=== PATIENT | female | born 1940 | race Caucasian/White ===

== ENCOUNTER 2017-12-21 18:42 | Inpatient (IN) | payer MEDICARE ==
[2017-12-21] MEDS: NS 0.9% 1000 ML* 2,000 ML IV ONE ×2 (18:47→18:48)
[2017-12-21 19:09] LABS: ABS Basophils 0.1 10^3/ul (0-0.2); ABS Eosinophils 0.1 10^3/ul (0-0.6); ABS Lymphocytes 0.7 10^3/ul (1.0-4.8); ABS Monocytes 0.6 10^3/ul (0-0.8); ABS Neutrophils 3.2 10^3/ul (1.5-7.7); ABS Nucleated RBC 0 10^3/ul; Eosinophil % 2.5 % (0-6); Hematocrit 35 % (35-47); Hemoglobin 11.8 g/dl (12.0-16.0); Lymphocyte % 15.1 % (25-47); Mean Corpuscular HGB Conc 34 g/dl (31-36); Mean Corpuscular Hemoglobin 28 pg (27-31); Mean Corpuscular Volume 81 fL (80-97); Mean Platelet Volume 8.4 um3 (7.4-10.4); Nucleated Red Blood Cells % 0; Platelet Count 185 10^3/ul (150-450); Red Blood Count 4.27 10^6/ul (4.00-5.40); Red Cell Distribution Width 14 % (10.5-15); White Blood Count 4.7 10^3/ul (3.5-10.8)
[2017-12-21 19:13] LABS: Urine Appearance Clear; Urine Blood Negative (Negative); Urine Color Yellow; Urine Ketones Trace (Negative); Urine Protein Negative (Negative); Urine Specific Gravity 1.014 (1.010-1.030); Urine Urobilinogen Negative (Negative)
[2017-12-21 19:17] LABS: INR 1.05 (0.77-1.02)
--- NOTE | 2017-12-21 19:38 | RAD ---
HISTORY: AMS,FALL COMPARISONS: None TECHNIQUE: Multiple contiguous axial CT scans were obtained of the head without intravenous contrast. FINDINGS: HEMORRHAGE/INFARCT: There is no hemorrhage or acute infarct. MASSES/SHIFT: There is no mass or shift. EXTRA-AXIAL SPACES: There are no extra-axial fluid collections. SULCI AND VENTRICLES: The sulci and ventricles are normal in size and position for the patient's stated age. CEREBRUM: There are no focal parenchymal abnormalities. BRAINSTEM: There are no focal parenchymal abnormalities. CEREBELLUM: There are no focal parenchymal abnormalities. VESSELS: The vessels are grossly normal. PARANASAL SINUSES: The paranasal sinuses are clear. ORBITS: The orbits are unremarkable. BONES AND SOFT TISSUE: No bone or soft tissue abnormalities are noted. OTHER: None IMPRESSION: NO ACUTE INTRACRANIAL PATHOLOGY.
--- NOTE | 2017-12-21 19:42 | RAD ---
HISTORY: Altered mental status, fall COMPARISONS: None TECHNIQUE: Multiple contiguous axial CT scans were obtained of the cervical spine without intravenous contrast, with coronal and sagittal multiplanar reformations. FINDINGS: BRAIN: The visualized brain is unremarkable CENTRAL CANAL: Evaluation of the central canal is limited on CT technique; however, there is no obvious canalicular mass or epidural hemorrhage. ALIGNMENT: There is a scoliotic curvature of the spine. VERTEBRAL BODIES: There is diffuse osteopenia. Is multilevel anterolateral marginal osteophyte formation. There is no displaced fracture or dislocation. JOINTS: There is osteoarthritis of the uncovertebral, facet, and atlantoaxial joints. MUSCULATURE: Unremarkable INTERVERTEBRAL DISCS: There is diffuse loss of intervertebral disc height. AXIAL IMAGES: C2-C3: There is no osseous neural foraminal narrowing or central canal stenosis. C3-C4: There is no osseous neural foraminal narrowing or central canal stenosis. C4-C5: There is no osseous neural foraminal narrowing or central canal stenosis. C5-C6: There is no osseous neural foraminal narrowing or central canal stenosis. C6-C7: There is no osseous neural foraminal narrowing or central canal stenosis. C7-T1: There is no osseous neural foraminal narrowing or central canal stenosis. SOFT TISSUES: The visualized soft tissues of the neck are unremarkable. The prevertebral fat stripe is preserved. OTHER: None. IMPRESSION: OSTEOPENIA. DEGENERATIVE DISC DISEASE AND OSTEOARTHRITIS. NO ACUTE OSSEOUS INJURY CERVICAL SPINE.
--- NOTE | 2017-12-21 19:47 | RAD ---
HISTORY: Altered mental status, fall COMPARISONS: None TECHNIQUE: Multiple contiguous axial CT scans were obtained of the chest, abdomen, and pelvis, without intravenous contrast enhancement. Coronal and sagittal multiplanar reformations are submitted for review.. FINDINGS: The study is limited by the lack of intravenous contrast. This limits evaluation of the solid organs and vasculature. This precludes evaluation of active arterial extravasation. CHEST NECK AND THYROID: The lower neck and thyroid are unremarkable. CHEST WALL: There is no lower cervical, axillary, or supraclavicular lymphadenopathy by size criteria. HEART AND PERICARDIUM: The heart is unremarkable. AORTA AND PULMONARY VASCULATURE: The aorta and pulmonary vasculature are normal. MEDIASTINUM: There is no mediastinal lymphadenopathy by size criteria. REYNA: There is no hilar lymphadenopathy by size criteria. AIRWAY AND ESOPHAGUS: The airway is unremarkable, without endobronchial filling defect. The esophagus is grossly normal. LUNG PARENCHYMA: There is dependent atelectasis of the lung bases. PLEURA: No pleural abnormalities are noted. BONES AND SOFT TISSUES: There is diffuse osteopenia. There is a scoliotic curvature of the spine.. ABDOMEN/PELVIS: LIVER: The liver is normal in shape, size, contour, and attenuation. BILE DUCTS: There is no intrahepatic or extrahepatic biliary dilatation. GALLBLADDER: The gallbladder is normal, without pericholecystic inflammatory change. PANCREAS: The pancreas is normal, without mass or ductal dilatation. SPLEEN: Normal in size and appearance. UPPER GI TRACT: Evaluation of the gastrointestinal tract is limited by incomplete gastric distention. The upper GI tract is unremarkable. SMALL BOWEL & MESENTERY: The small bowel is normal in contour, course, and caliber. There is no obstruction or dilatation. COLON: There are multiple diverticula of the distal colon. There is no pericolonic inflammatory change. ADRENALS: Normal bilaterally. KIDNEYS: The kidneys are normal in shape, size, contour, and axis. There is no hydronephrosis or nephrolithiasis. BLADDER: The bladder is collapsed rounded Chau catheter. PELVIC ORGANS: The uterus and adnexa are grossly normal for technique. AORTA: There is calcific atherosclerotic disease of the abdominal aorta and its branches, without aneurysmal dilatation IVC: Unremarkable LYMPH NODES: There is no lymphadenopathy by size criteria. ABDOMINAL WALL: There is no evidence for abdominal wall hernia. BONES AND SOFT TISSUES: There is a scoliotic curvature of the spine. There is diffuse osteopenia. Degenerative changes are noted in the spine. OTHER: None IMPRESSION: 1. NO ACUTE NONCONTRAST CT PATHOLOGY OF THE VISUALIZED CHEST, ABDOMEN, OR PELVIS. 2. ATHEROSCLEROSIS. 3. DIVERTICULOSIS.
--- NOTE | 2017-12-21 19:48 | RAD ---
HISTORY: AMS COMPARISONS: January 16, 2005 VIEWS: 1: frontal portable view of the chest at 7:35 PM. The patient is obliqued to the right. FINDINGS: LINES AND TUBES: None. CARDIOMEDIASTINAL SILHOUETTE: The cardiomediastinal silhouette is normal for portable technique. PLEURA: The costophrenic angles are sharp. No pleural abnormalities are noted. LUNG PARENCHYMA: There is hyperinflation. ABDOMEN: The upper abdomen is clear. There is no subphrenic gas. BONES AND SOFT TISSUES: There is diffuse osteopenia. IMPRESSION: HYPERINFLATION. NO ACTIVE CARDIOPULMONARY DISEASE.
[2017-12-21] MEDS ORDERED: Ondansetron 40 MG VIAL* 2 MG/ML 20 ML VIAL IV PRN (22:40)
[2017-12-21] MEDS ORDERED: Acetaminophen TAB* 325 MG PO PRN (22:40)
[2017-12-21] MEDS ORDERED: hydrALAZINE IV* 20 MG/ML VIAL IV SLOW PU PRN (22:47)
--- NOTE | 2017-12-21 23:10 | ED ---
Mejia Ribeiro Jade, scribed for Theron Marks MD on 12/21/17 at 1851 . Altered Mental Status - HPI Summary HPI Summary: Pt is a 77 y/o female BIBA s/p fall. EMS states she was found at the bottom of a 15 foot hill, and it seemed like she tumbled down the hill. It seemed like she was outside for a long time because she was hot and sweaty. Pt has altered mental status, and was only able to mumble. Upon EMS arrival her vitals were a HR of 150 bpm and a systolic pressure of 160. She was given 4 liters of oxygen via nasal cannula. Pt is maintaining her airway fine. Pt is a level 5 caveat, therefore unable to obtain proper ROS or PMHx. - History Of Current Complaint Chief Complaint: EDAltMentalStatus Stated Complaint: AMS Time Seen by Provider: 12/21/17 18:45 Hx Obtained From: EMS Hx From Patient Unobtainable Due To: Altered Mental Status Hx Last Menstrual Period: Years ago. Onset/Duration: Unknown, Still Present Character: Confusion Aggravating Factor(s): Unknown Alleviating Factor(s): Unknown - Allergies/Home Medications Allergies/Adverse Reactions: Allergies Allergy/AdvReac Type Severity Reaction Status Date / Time No Known Allergies Allergy Verified 09/08/15 12:07 Home Medications: Home Medications NK [No Home Medications Reported] 12/21/17 [History Confirmed 12/21/17] PMH/Surg Hx/FS Hx/Imm Hx Endocrine/Hematology History: Denies: Hx Diabetes, Hx Thyroid Disease Cardiovascular History: Denies: Hx Congestive Heart Failure, Hx Deep Vein Thrombosis, Hx Hypertension , Hx Myocardial Infarction, Hx Pacemaker/ICD Respiratory History: Denies: Hx Asthma, Hx Chronic Obstructive Pulmonary Disease (COPD), Hx Lung Cancer GI History: Denies: Hx Gall Bladder Disease, Hx Gastrointestinal Bleed, Hx Ulcer, Hx Urosepsis History: Denies: Hx Kidney Stones, Hx Renal Disease Neurological History: Denies: Hx Dementia, Hx Migraine, Hx Seizures, Hx Transient Ischemic Attacks (TIA) Psychiatric History: Denies: Hx Anxiety, Hx Depression, Hx Schizophrenia, Hx Bipolar Disorder - Surgical History Surgery Procedure, Year, and Place: breast bx Infectious Disease History: Denies: Hx Hepatitis, Hx Human Immunodeficiency Virus (HIV), Traveled Outside the [place] in Last 30 Days - Family History Known Family History: Positive: Cardiac Disease, Hypertension, Diabetes, Other - Cancer - Social History Alcohol Use: None Substance Use Type: Reports: None Smoking Status (MU): Former Smoker Review of Systems Positive: Skin Diaphoresis Positive: Other - Hot skin Neurological: Other - Altered mental status All Other Systems Reviewed And Are Negative: Yes Physical Exam - Summary Physical Exam Summary: General: well-appearing, no pain distress Skin: Red, hot, dry. Head: Oral mucosa dry. Eyes: EOMI, LUCILLE to 2 mm. ENT: normal Neck: supple, nontender Respiratory: CTA, breath sounds present Cardiovascular: Tachycardic. Abdomen: soft, nontender Bowel: present Musculoskeletal: Moving all four extremities. Neurological: sensory/motor intact, says some words. Reacts to pain. Opens eyes to voice. Psychological: affect/mood appropriate GCS: 10 Triage Information Reviewed: Yes Vital Signs On Initial Exam: Initial Vitals Temp Pulse Resp BP Pulse Ox 102.0 F 140 37 143/76 100 12/21/17 18:47 12/21/17 18:47 12/21/17 18:47 12/21/17 18:47 12/21/17 18:47 Vital Signs Reviewed: Yes Diagnostics - Vital Signs Vital Signs Temp Pulse Resp BP Pulse Ox 12/21/17 22:54 96.8 F 71 16 160/74 100 12/21/17 22:29 96.4 F 89 30 165/106 100 12/21/17 22:00 96.6 F 68 14 98 12/21/17 21:59 96.6 F 71 18 133/65 98 12/21/17 21:29 96.3 F 82 15 161/81 100 12/21/17 21:00 96.6 F 86 19 97 12/21/17 20:59 96.6 F 87 14 128/67 97 12/21/17 20:29 97.0 F 90 15 145/67 98 12/21/17 20:01 97.2 F 99 15 185/86 100 12/21/17 20:00 97.2 F 99 12 99 12/21/17 19:30 99.0 F 109 22 144/71 98 12/21/17 19:07 102.0 F 127 20 142/65 99 12/21/17 19:00 102.7 F 129 25 99 12/21/17 18:58 102.7 F 129 28 96 12/21/17 18:57 102.6 F 131 32 143/65 97 12/21/17 18:47 102.0 F 140 37 143/76 100 - Laboratory Lab Results: Lab Results 12/21/17 12/21/17 12/21/17 Range/Units 18:55 18:55 18:55 WBC 4.7 (3.5-10.8) 10^3/ul RBC 4.27 (4.00-5.40) 10^6/ul Hgb 11.8 L (12.0-16.0) g/dl Hct 35 (35-47) % MCV 81 (80-97) fL MCH 28 (27-31) pg MCHC 34 (31-36) g/dl RDW 14 (10.5-15) % Plt Count 185 (150-450) 10^3/ul MPV 8.4 (7.4-10.4) um3 Neut % (Auto) 68.9 (38-83) % Lymph % (Auto) 15.1 L (25-47) % Bowie % (Auto) 12.2 H (0-7) % Eos % (Auto) 2.5 (0-6) % Baso % (Auto) 1.3 (0-2) % Absolute Neuts (auto) 3.2 (1.5-7.7) 10^3/ul Absolute Lymphs (auto) 0.7 L (1.0-4.8) 10^3/ul Absolute Monos (auto) 0.6 (0-0.8) 10^3/ul Absolute Eos (auto) 0.1 (0-0.6) 10^3/ul Absolute Basos (auto) 0.1 (0-0.2) 10^3/ul Absolute Nucleated RBC 0 10^3/ul Nucleated RBC % 0 INR (Anticoag Therapy) 1.05 H (0.77-1.02) APTT 27.9 (26.0-36.3) seconds VBG pH (7.33-7.43) VBG pCO2 (41-51) mmHg VBG pO2 (35-45) mmHg VBG HCO3 (24-28) mmol/L VBG O2 Saturation (70-80) % VBG Base Excess (0-4) POC Glucose (mg/dL) (70-100) mg/dL Lactic Acid (0.5-2.0) mmol/L Magnesium (1.9-2.7) mg/dL Ammonia (16-53) mcmol/L Total Creatine Kinase (10-223) U/L CK-MB (CK-2) (0.6-6.3) ng/mL Troponin I (<0.04) ng/mL C-Reactive Protein (< 5.00) mg/L B-Natriuretic Peptide ( - 100) pg/mL Lipase (11.0-82.0) U/L TSH (0.34-5.60) mcIU/mL Urine Color Yellow Urine Appearance Clear Urine pH 5.0 (5-9) Ur Specific Newell 1.014 (1.010-1.030) Urine Protein Negative (Negative) Urine Ketones Trace A (Negative) Urine Blood Negative (Negative) Urine Nitrate Negative (Negative) Urine Bilirubin Negative (Negative) Urine Urobilinogen Negative (Negative) Ur Leukocyte Esterase Negative (Negative) Urine Glucose Negative (Negative) Acetaminophen mcg/mL Serum Alcohol (<10) mg/dL 12/21/17 12/21/17 12/21/17 Range/Units 18:55 18:55 18:55 WBC (3.5-10.8) 10^3/ul RBC (4.00-5.40) 10^6/ul Hgb (12.0-16.0) g/dl Hct (35-47) % MCV (80-97) fL MCH (27-31) pg MCHC (31-36) g/dl RDW (10.5-15) % Plt Count (150-450) 10^3/ul MPV (7.4-10.4) um3 Neut % (Auto) (38-83) % Lymph % (Auto) (25-47) % Bowie % (Auto) (0-7) % Eos % (Auto) (0-6) % Baso % (Auto) (0-2) % Absolute Neuts (auto) (1.5-7.7) 10^3/ul Absolute Lymphs (auto) (1.0-4.8) 10^3/ul Absolute Monos (auto) (0-0.8) 10^3/ul Absolute Eos (auto) (0-0.6) 10^3/ul Absolute Basos (auto) (0-0.2) 10^3/ul Absolute Nucleated RBC 10^3/ul Nucleated RBC % INR (Anticoag Therapy) (0.77-1.02) APTT (26.0-36.3) seconds VBG pH (7.33-7.43) VBG pCO2 (41-51) mmHg VBG pO2 (35-45) mmHg VBG HCO3 (24-28) mmol/L VBG O2 Saturation (70-80) % VBG Base Excess (0-4) POC Glucose (mg/dL) (70-100) mg/dL Lactic Acid 0.8 (0.5-2.0) mmol/L Magnesium 1.9 (1.9-2.7) mg/dL Ammonia 40 (16-53) mcmol/L Total Creatine Kinase 33 (10-223) U/L CK-MB (CK-2) 2.2 (0.6-6.3) ng/mL Troponin I 0.01 (<0.04) ng/mL C-Reactive Protein 3.45 (< 5.00) mg/L B-Natriuretic Peptide 69 ( - 100) pg/mL Lipase 35 (11.0-82.0) U/L TSH 1.60 (0.34-5.60) mcIU/mL Urine Color Urine Appearance Urine pH (5-9) Ur Specific Newell (1.010-1.030) Urine Protein (Negative) Urine Ketones (Negative) Urine Blood (Negative) Urine Nitrate (Negative) Urine Bilirubin (Negative) Urine Urobilinogen (Negative) Ur Leukocyte Esterase (Negative) Urine Glucose (Negative) Acetaminophen < 15 mcg/mL Serum Alcohol < 10 (<10) mg/dL 18 12/21/17 Range/Units 19:10 19:45 WBC (3.5-10.8) 10^3/ul RBC (4.00-5.40) 10^6/ul Hgb (12.0-16.0) g/dl Hct (35-47) % MCV (80-97) fL MCH (27-31) pg MCHC (31-36) g/dl RDW (10.5-15) % Plt Count (150-450) 10^3/ul MPV (7.4-10.4) um3 Neut % (Auto) (38-83) % Lymph % (Auto) (25-47) % Bowie % (Auto) (0-7) % Eos % (Auto) (0-6) % Baso % (Auto) (0-2) % Absolute Neuts (auto) (1.5-7.7) 10^3/ul Absolute Lymphs (auto) (1.0-4.8) 10^3/ul Absolute Monos (auto) (0-0.8) 10^3/ul Absolute Eos (auto) (0-0.6) 10^3/ul Absolute Basos (auto) (0-0.2) 10^3/ul Absolute Nucleated RBC 10^3/ul Nucleated RBC % INR (Anticoag Therapy) (0.77-1.02) APTT (26.0-36.3) seconds VBG pH 7.35 (7.33-7.43) VBG pCO2 37 L (41-51) mmHg VBG pO2 57 H (35-45) mmHg VBG HCO3 21.1 L (24-28) mmol/L VBG O2 Saturation 92.5 H (70-80) % VBG Base Excess -4.7 L (0-4) POC Glucose (mg/dL) 141 H (70-100) mg/dL Lactic Acid (0.5-2.0) mmol/L Magnesium (1.9-2.7) mg/dL Ammonia (16-53) mcmol/L Total Creatine Kinase (10-223) U/L CK-MB (CK-2) (0.6-6.3) ng/mL Troponin I (<0.04) ng/mL C-Reactive Protein (< 5.00) mg/L B-Natriuretic Peptide ( - 100) pg/mL Lipase (11.0-82.0) U/L TSH (0.34-5.60) mcIU/mL Urine Color Urine Appearance Urine pH (5-9) Ur Specific Newell (1.010-1.030) Urine Protein (Negative) Urine Ketones (Negative) Urine Blood (Negative) Urine Nitrate (Negative) Urine Bilirubin (Negative) Urine Urobilinogen (Negative) Ur Leukocyte Esterase (Negative) Urine Glucose (Negative) Acetaminophen mcg/mL Serum Alcohol (<10) mg/dL Result Diagrams: 12/21/17 18:55 Lab Statement: Any lab studies that have been ordered have been reviewed, and results considered in the medical decision making process. - Radiology CXR Radiology Interpretation Completed By: Radiologist - 18:49: HYPERINFLATION. NO ACTIVE CARDIOPULMONARY DISEASE. ED physician reviewed radiology report. - CT Brain CT CT Interpretation: No Acute Changes - 18:52: NO ACUTE INTRACRANIAL PATHOLOGY. ED physician reviewed radiology report. CT Interpretation Completed By: Radiologist Cervical Spine CT CT Interpretation Completed By: Radiologist - 18:52: OSTEOPENIA. DEGENERATIVE DISC DISEASE AND OSTEOARTHRITIS. NO ACUTE OSSEOUS INJURY CERVICAL SPINE. ED physician reviewed radiology report. Chest/Abd/Pel CT CT Interpretation Completed By: Radiologist - 18:52: 1. NO ACUTE NONCONTRAST CT PATHOLOGY OF THE VISUALIZED CHEST, ABDOMEN, OR PELVIS. 2. ATHEROSCLEROSIS. 3. DIVERTICULOSIS. ED physician reviewed radiology report. - EKG 18:52 Cardiac Rate: Tachycardia - 131 bpm EKG Interpretation: ST depression probably rate related, no ectopy Altered Mental Statu Course/Dx - Course Course Of Treatment: ADMIT HOSPITALIST. - Diagnoses Provider Diagnoses: Heat exhaustion, Dehydration, Altered mental state - Critical Care Time Critical Care Time: 30-74 min - CCT is exclusive of separate billable procedures Discharge - Sign-Out/Discharge Documenting (check all that apply): Discharge/Admit/Transfer - Admit Signing out patient TO: Tito Traylor - Discharge Plan Condition: Stable Disposition: ADMITTED TO [facility] Referrals: No Primary Care Phys,NOPCP [Primary Care Provider] - - Billing Disposition and Condition Condition: STABLE Disposition: Admitted to [facility] The documentation as recorded by the Mejia calderon Jade accurately reflects the service I personally performed and the decisions made by me, Theron Marks MD.
[2017-12-22] MEDS: NS 0.9% 1000 ML* 1,000 ML IV SCH ×2 (00:59→14:06)
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
[2017-12-22 04:45] LABS: ABS Basophils 0 10^3/ul (0-0.2); ABS Eosinophils 0 10^3/ul (0-0.6); ABS Lymphocytes 0.9 10^3/ul (1.0-4.8); ABS Monocytes 0.9 10^3/ul (0-0.8); ABS Neutrophils 4.9 10^3/ul (1.5-7.7); ABS Nucleated RBC 0 10^3/ul; Eosinophil % 0.6 % (0-6); Hematocrit 36 % (35-47); Lymphocyte % 13.8 % (25-47); Mean Corpuscular HGB Conc 33 g/dl (31-36); Mean Corpuscular Hemoglobin 27 pg (27-31); Mean Corpuscular Volume 82 fL (80-97); Mean Platelet Volume 8.7 um3 (7.4-10.4); Nucleated Red Blood Cells % 0; Platelet Count 172 10^3/ul (150-450); Red Blood Count 4.42 10^6/ul (4.00-5.40); Red Cell Distribution Width 15 % (10.5-15); White Blood Count 6.8 10^3/ul (3.5-10.8)
[2017-12-22] MEDS: Heparin VIAL(*) 5000 UNITS/ML VIAL (FIVE THOUSAND) SUBCUT SCH ×2 (06:24→14:02)
[2017-12-22] MEDS ORDERED: Potassium Chlor TAB* 20 MEQ TAB.ER PO STA (08:38)
[2017-12-22] MEDS: Cyanocobalamin TAB* 500 MCG PO SCH (08:45)
[2017-12-22] MEDS ORDERED: Calcium CHLORIDE 10% SYRINGE* 0.68 GM in D5W 100 ML BAG* 100 ML IV ONE (10:48)
--- NOTE | 2017-12-22 13:33 | ECHO ---
Patient: RUBEN STEELE [facility] Rec#: [id number] : 1940 Date: 12/22/2017 Age: 77y Height: 157.5 cm / 62.0 in Weight: 47.6 kg / 104.9 lbs Sex: F BSA: 1.5 Room#: 435 Admit Date#: 12/21/2017 Type: Inpatient Referring: Theron Nixon Reading: Alejandro Harden MD Assistant Finance Director: Karen Gutiérrez RN RDCS Transthoracic Echocardiogram Indication: Syncope BP: 138/59 HR: 79 Rhythm: NSR with PACs Findings History: Arthritis, dementia, heat exhaustion Technical Comments: The study quality is fair. Completed at 1225. Left Ventricle: The left ventricular chamber size is normal. There is increased basal septal hypertrophy noted without evidence of an increased gradient across the left ventricular outflow tract. Global left ventricular wall motion and contractility are within normal limits. There is normal left ventricular systolic function. The estimated ejection fraction is 60-65%. There is an E to A reversal in the mitral valve flow pattern suggestive of diastolic dysfunction. Left Atrium: The left atrial chamber size is normal. Right Ventricle: The right ventricular chamber size and systolic function are within normal limits. Right Atrium: The right atrial cavity size is normal. Aortic Valve: The aortic valve is trileaflet. The aortic valve leaflets are mildly thickened. There is aortic annular calcification. There is mild to moderate aortic regurgitation. There is no evidence of aortic stenosis. Mitral Valve: There is mitral annular calcification. The mitral valve leaflets are mildly thickened. There is mild to moderate mitral regurgitation. There is no evidence of mitral stenosis. Tricuspid Valve: The tricuspid valve leaflets are normal. There is mild tricuspid regurgitation. No pulmonary hypertension is noted. There is no tricuspid stenosis. Pulmonic Valve: The pulmonic valve appears normal. There is trace to mild pulmonic regurgitation. There is no pulmonic stenosis. Pericardium: There is no significant pericardial effusion. A pericardial fat pad is visualized. Aorta: There is no dilatation of the ascending aorta. There is no dilatation of the aortic arch. There is no dilation of the aortic root. Pulmonary Artery: The main pulmonary artery is not well visualized. Venous: The inferior vena cava appears normal in size. There is a greater than 50% respiratory change in the inferior vena cava dimension. Conclusions There is increased basal septal hypertrophy noted without evidence of an increased gradient across the left ventricular outflow tract. Global left ventricular wall motion and contractility are within normal limits. There is normal left ventricular systolic function. The estimated ejection fraction is 60-65%. The right ventricular chamber size and systolic function are within normal limits. There is no evidence of aortic stenosis. There is mild to moderate mitral regurgitation. There is mild tricuspid regurgitation. No pulmonary hypertension is noted. There is no significant pericardial effusion. Measurements Name Value Normal Range RVDdMajor (2D) 2.8 cm (2.2 - 4.4) RAd ISD 4CH 4 cm (3.4 - 4.9) RA (A4C)W 3.6 cm (2.9 - 4.6) IVSd (2D) 0.8 cm (0.6 - 1) LVPWd (2D) 0.8 cm (0.6 - 1) LVIDd (2D) 3.8 cm (3.6 - 5.4) LVIDs (2D) 2.4 cm - LV FS (2D) 36 % (25 - 45) Aortic Annulus 1.9 cm (1.4 - 2.6) Ao root diameter (2D) 2.6 cm (2.1 - 3.5) Ascending Ao 2.4 cm (2.1 - 3.4) Aortic arch 2.2 cm (1.8 - 3.4) LA dimension (AP) 2D 3 cm (2.3 - 3.8) LAd ISD 4CH 3.9 cm (2.9 - 5.3) LA ISD 4CH W 4.1 cm (2.5 - 4.5) Name Value Normal Range LA ESV SP 4CH (A/L) 41 ml - LA ESV SP 2CH (A/L) 39 ml - LA ESV BP (A/L) 42 ml - LA ESV BP (A/L) index 29.1 ml/m2 - LA ESV SP 4CH (MOD) 36 ml - LA ESV SP 2CH (MOD) 38 ml - Name Value Normal Range MV E-wave Vmax 0.8 m/sec - MV deceleration time 193 msec - MV A-wave Vmax 0.97 m/sec - MV E:A ratio 0.82 ratio - LV septal e' Vmax 0.07 m/sec - LV lateral e' Vmax 0.08 m/sec - LV E:e' septal ratio 11.4 ratio - LV E:e' lateral ratio 10 ratio - Name Value Normal Range AV Vmax 1.4 m/sec - AV VTI 32.8 cm - AV peak gradient 8 mmHg - AV mean gradient 4 mmHg - LVOT Vmax 0.94 m/sec - LVOT VTI 21.4 cm - LVOT peak gradient 3.6 mmHg - LVOT mean gradient 1.9 mmHg - AR PHT 482 msec - Name Value Normal Range TR Vmax 2.1 m/sec - TR peak gradient 18 mmHg - RAP 3 mmHg - RVSP 21 mmHg - IVC diameter 1.8 cm - Name Value Normal Range PV Vmax 0.7 m/sec -
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
--- NOTE | 2017-12-22 21:17 | PN ---
Subjective Date of Service: 12/22/17 Interval History: Pt seen and examined. Meds and labs reviewed. ROS: Denied MOSER/dizziness, F/C, N/V, CP, SOB, increased cough, sputum production , abd pain, diarrhea, constipation, dysuria, myalgias, arthralgias, throat pain , and new skin lesions. The rest of the 14 point ROS are unremarkable. PHYSICAL EXAM: GEN APPEARANCE: Awake, not in acute distress HEENT: NC/AT, PERRLA, moist oral mucosa, (-) throat erythema NECK: Soft, supple, (-) cervical LAD, (-)JVD HEART: S1S2 WNL, RRR, No MRG CHEST: CTA, BL, GAE, No W/R/R ABD: Soft, ND/NT, NABS 4x Q EXT: No C/C/E SKIN: Warm to touch PSYCH: No active psychosis, hallucinations, depression, SI/HI Objective Active Medications: Acetaminophen (Tylenol Tab*) 650 mg PO Q6H PRN PRN Reason: FEVER/PAIN Cyanocobalamin (Vitamin B12 Tab*) 1,000 mcg PO DAILY [facility] Last Admin: 12/22/17 08:45 Dose: 1,000 mcg Heparin Sodium (Porcine) (Heparin Vial(*)) 5,000 units SUBCUT Q8HR [facility] Last Admin: 12/22/17 14:02 Dose: 5,000 units Hydralazine HCl (Apresoline Iv*) 5 mg IV SLOW PU Q6H PRN PRN Reason: SYSTOLIC BP GREATER THAN: Sodium Chloride (Ns 0.9% 1000 Ml*) 1,000 mls @ 100 mls/hr IV PER RATE [facility] Stop: 12/23/17 08:44 Last Admin: 12/22/17 14:06 Dose: 100 mls/hr Ondansetron HCl (Zofran 40 Mg Vial*) 4 mg IV Q6H PRN PRN Reason: NAUSEA Quetiapine Fumarate (Seroquel Tab*) 25 mg PO BEDTIME [facility] Vital Signs - 8 hr 12/22/17 15:18 Temperature 99.0 F Pulse Rate 90 Respiratory 14 Rate Blood Pressure 130/57 (mmHg) O2 Sat by Pulse 99 Oximetry Oxygen Devices in Use Now: None Result Diagrams: 12/22/17 04:19 12/22/17 04:19 Additional Lab and Data: Lab Results 12/21/17 12/21/17 12/21/17 Range/Units 18:55 18:55 18:55 WBC 4.7 (3.5-10.8) 10^3/ul RBC 4.27 (4.00-5.40) 10^6/ul Hgb 11.8 L (12.0-16.0) g/dl Hct 35 (35-47) % MCV 81 (80-97) fL MCH 28 (27-31) pg MCHC 34 (31-36) g/dl RDW 14 (10.5-15) % Plt Count 185 (150-450) 10^3/ul MPV 8.4 (7.4-10.4) um3 Neut % (Auto) 68.9 (38-83) % Lymph % (Auto) 15.1 L (25-47) % Ness % (Auto) 12.2 H (0-7) % Eos % (Auto) 2.5 (0-6) % Baso % (Auto) 1.3 (0-2) % Absolute Neuts (auto) 3.2 (1.5-7.7) 10^3/ul Absolute Lymphs (auto) 0.7 L (1.0-4.8) 10^3/ul Absolute Monos (auto) 0.6 (0-0.8) 10^3/ul Absolute Eos (auto) 0.1 (0-0.6) 10^3/ul Absolute Basos (auto) 0.1 (0-0.2) 10^3/ul Absolute Nucleated RBC 0 10^3/ul Nucleated RBC % 0 INR (Anticoag Therapy) 1.05 H (0.77-1.02) APTT 27.9 (26.0-36.3) seconds VBG pH (7.33-7.43) VBG pCO2 (41-51) mmHg VBG pO2 (35-45) mmHg VBG HCO3 (24-28) mmol/L VBG O2 Saturation (70-80) % VBG Base Excess (0-4) POC Glucose (mg/dL) (70-100) mg/dL Lactic Acid (0.5-2.0) mmol/L Magnesium (1.9-2.7) mg/dL Ammonia (16-53) mcmol/L Total Creatine Kinase (10-223) U/L CK-MB (CK-2) (0.6-6.3) ng/mL Troponin I (<0.04) ng/mL C-Reactive Protein (< 5.00) mg/L B-Natriuretic Peptide ( - 100) pg/mL Lipase (11.0-82.0) U/L TSH (0.34-5.60) mcIU/mL Urine Color Yellow Urine Appearance Clear Urine pH 5.0 (5-9) Ur Specific [place] 1.014 (1.010-1.030) Urine Protein Negative (Negative) Urine Ketones Trace A (Negative) Urine Blood Negative (Negative) Urine Nitrate Negative (Negative) Urine Bilirubin Negative (Negative) Urine Urobilinogen Negative (Negative) Ur Leukocyte Esterase Negative (Negative) Urine Glucose Negative (Negative) Acetaminophen mcg/mL Serum Alcohol (<10) mg/dL 12/21/17 12/21/17 12/21/17 Range/Units 18:55 18:55 18:55 WBC (3.5-10.8) 10^3/ul RBC (4.00-5.40) 10^6/ul Hgb (12.0-16.0) g/dl Hct (35-47) % MCV (80-97) fL MCH (27-31) pg MCHC (31-36) g/dl RDW (10.5-15) % Plt Count (150-450) 10^3/ul MPV (7.4-10.4) um3 Neut % (Auto) (38-83) % Lymph % (Auto) (25-47) % Ness % (Auto) (0-7) % Eos % (Auto) (0-6) % Baso % (Auto) (0-2) % Absolute Neuts (auto) (1.5-7.7) 10^3/ul Absolute Lymphs (auto) (1.0-4.8) 10^3/ul Absolute Monos (auto) (0-0.8) 10^3/ul Absolute Eos (auto) (0-0.6) 10^3/ul Absolute Basos (auto) (0-0.2) 10^3/ul Absolute Nucleated RBC 10^3/ul Nucleated RBC % INR (Anticoag Therapy) (0.77-1.02) APTT (26.0-36.3) seconds VBG pH (7.33-7.43) VBG pCO2 (41-51) mmHg VBG pO2 (35-45) mmHg VBG HCO3 (24-28) mmol/L VBG O2 Saturation (70-80) % VBG Base Excess (0-4) POC Glucose (mg/dL) (70-100) mg/dL Lactic Acid 0.8 (0.5-2.0) mmol/L Magnesium 1.9 (1.9-2.7) mg/dL Ammonia 40 (16-53) mcmol/L Total Creatine Kinase 33 (10-223) U/L CK-MB (CK-2) 2.2 (0.6-6.3) ng/mL Troponin I 0.01 (<0.04) ng/mL C-Reactive Protein 3.45 (< 5.00) mg/L B-Natriuretic Peptide 69 ( - 100) pg/mL Lipase 35 (11.0-82.0) U/L TSH 1.60 (0.34-5.60) mcIU/mL Urine Color Urine Appearance Urine pH (5-9) Ur Specific [place] (1.010-1.030) Urine Protein (Negative) Urine Ketones (Negative) Urine Blood (Negative) Urine Nitrate (Negative) Urine Bilirubin (Negative) Urine Urobilinogen (Negative) Ur Leukocyte Esterase (Negative) Urine Glucose (Negative) Acetaminophen < 15 mcg/mL Serum Alcohol < 10 (<10) mg/dL 18 12/21/17 Range/Units 19:10 19:45 WBC (3.5-10.8) 10^3/ul RBC (4.00-5.40) 10^6/ul Hgb (12.0-16.0) g/dl Hct (35-47) % MCV (80-97) fL MCH (27-31) pg MCHC (31-36) g/dl RDW (10.5-15) % Plt Count (150-450) 10^3/ul MPV (7.4-10.4) um3 Neut % (Auto) (38-83) % Lymph % (Auto) (25-47) % Ness % (Auto) (0-7) % Eos % (Auto) (0-6) % Baso % (Auto) (0-2) % Absolute Neuts (auto) (1.5-7.7) 10^3/ul Absolute Lymphs (auto) (1.0-4.8) 10^3/ul Absolute Monos (auto) (0-0.8) 10^3/ul Absolute Eos (auto) (0-0.6) 10^3/ul Absolute Basos (auto) (0-0.2) 10^3/ul Absolute Nucleated RBC 10^3/ul Nucleated RBC % INR (Anticoag Therapy) (0.77-1.02) APTT (26.0-36.3) seconds VBG pH 7.35 (7.33-7.43) VBG pCO2 37 L (41-51) mmHg VBG pO2 57 H (35-45) mmHg VBG HCO3 21.1 L (24-28) mmol/L VBG O2 Saturation 92.5 H (70-80) % VBG Base Excess -4.7 L (0-4) POC Glucose (mg/dL) 141 H (70-100) mg/dL Lactic Acid (0.5-2.0) mmol/L Magnesium (1.9-2.7) mg/dL Ammonia (16-53) mcmol/L Total Creatine Kinase (10-223) U/L CK-MB (CK-2) (0.6-6.3) ng/mL Troponin I (<0.04) ng/mL C-Reactive Protein (< 5.00) mg/L B-Natriuretic Peptide ( - 100) pg/mL Lipase (11.0-82.0) U/L TSH (0.34-5.60) mcIU/mL Urine Color Urine Appearance Urine pH (5-9) Ur Specific [place] (1.010-1.030) Urine Protein (Negative) Urine Ketones (Negative) Urine Blood (Negative) Urine Nitrate (Negative) Urine Bilirubin (Negative) Urine Urobilinogen (Negative) Ur Leukocyte Esterase (Negative) Urine Glucose (Negative) Acetaminophen mcg/mL Serum Alcohol (<10) mg/dL Assess/Plan/Problems-Billing Assessment: - Patient Problems (1) Syncope and collapse Current Visit: Yes Status: Acute Code(s): R55 - SYNCOPE AND COLLAPSE SNOMED Code(s): 348408122 Comment: -Possibly due to heat exhaustion given her dementia with behavioral issues causing delusions -EF of 60-65% on echo with no wall motion abnormalities -Will order carotid dopplers to evaluate for comorbid conditions -Pt not orthostatic -TSH normal (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 Berger early in the morning that her delusions may be part of her dementia -Low dose Quetiapine ordered -Consider Gabapentin or Depakote for synergy given black box warning to antipsychotics -Will need to be placed in dementia unit on D/C per Dr. Berger (4) Osteoarthritis Current Visit: Yes Status: Acute Code(s): M19.90 - UNSPECIFIED OSTEOARTHRITIS, UNSPECIFIED SITE SNOMED Code(s): 887428342 Comment: -Continue PRN Tylenol (5) DVT prophylaxis Current Visit: Yes Status: Acute Code(s): SWK2498 - SNOMED Code(s): 278191898 Comment: -Will decrease Heparin to q12H given advanced age Status and Disposition: -For dementia unit placement on D/C
[2017-12-22] MEDS: QUEtiapine TAB* 25 MG PO SCH (21:55)
[2017-12-23 05:10] LABS: Hematocrit 36 % (35-47); Hemoglobin 12.3 g/dl (12.0-16.0); Mean Corpuscular HGB Conc 35 g/dl (31-36); Mean Corpuscular Hemoglobin 28 pg (27-31); Mean Corpuscular Volume 82 fL (80-97); Mean Platelet Volume 9.2 um3 (7.4-10.4); Platelet Count 151 10^3/ul (150-450); Red Blood Count 4.35 10^6/ul (4.00-5.40); Red Cell Distribution Width 15 % (10.5-15); White Blood Count 4.2 10^3/ul (3.5-10.8)
[2017-12-23 05:25] LABS: EGFR Non-African American 83.5 (>60)
[2017-12-23] MEDS: Cyanocobalamin TAB* 500 MCG PO SCH (09:02)
[2017-12-23] MEDS: Heparin VIAL(*) 5000 UNITS/ML VIAL (FIVE THOUSAND) SUBCUT SCH ×2 (09:04→20:57)
--- NOTE | 2017-12-23 11:13 | CONSULT ---
Identification - Patient Identification Reason for Psychiatric Consultation: Incapacitating Symptoms -: Patient is a 77 year old, F admitted on 12/22/17. - MHU Identification Employment Status: Disabled Hx Psychiatric Hospitalization: No History - Objective HPI: Jennifer is seen for follow up by the psychiatric consult service. She took the quetiapine last night and tolerated well. "I had a wonderful night of sleep." She reports that the music in her head, that she persecutorily attributes to a male neighbor whom she believes has been harassing her, has dissipated here in the hospital. She continues to be confused with poor orientation to time and place. Lab Results: Laboratory Tests 12/23/17 12/23/17 04:22 04:22 WBC 4.2 RBC 4.35 Hgb 12.3 Hct 36 MCV 82 MCH 28 MCHC 35 RDW 15 Plt Count 151 MPV 9.2 Sodium 140 Potassium 3.7 Chloride 111 Carbon Dioxide 23 Anion Gap 6 BUN 10 Creatinine 0.68 Est GFR ( Amer) 107.3 Est GFR (Non-Af Amer) 83.5 BUN/Creatinine Ratio 14.7 Glucose 98 Calcium 8.3 L Phosphorus 2.4 L Magnesium 1.8 L Total Bilirubin 0.30 AST 11 L ALT 7 Alkaline Phosphatase 59 Total Protein 5.5 L Albumin 3.0 L Globulin 2.5 Albumin/Globulin Ratio 1.2 Exam Appearance: Thin Framed Hygiene: Normal Grooming: Fairly Well Kept Psychomotor Activities: Abnormal-Decreased Exhibits Abnormal Movement: No Attitude and Relatedness: Cooperative Eye Contact: Good - Speech Quality: Unpressured Latencies: Normal Quantity: Appropriate Patient's Decription of Mood: "Good" Observed Affect: Good Affect Consistent with: Euthymia Patient's Thought Process: Circumstantial Thought Content: Yes Paranoid Ideation, No Passive Wish, No Suicidal Planning, No Homicidal Ideation Experiencing Hallucinations: Yes Type of Hallucinations: Visual: No, Auditory: Yes, Command: No Level of Consciousness: Alert Orientation: Yes Intact, Yes Orientated to Person, No Orientated to Time, No Orientated to Place Impulse Control: Poor Insight and Judgement: Impaired Impression - Impression Clinical Impression: 77 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 Health proxy reports that the patient's memory and cognitive functioning have been steadily declining for the past 5 years and she does not appear to be able to live independently. Inpatient DSM-V Dx: R41.9 Merits Inpatient Hospitalization: No Problem List - U Problems Type of Problem: Attitude and Relatedness Status of Problem: Active Plan - Treatment Plan Treatment Plan: We have started a trial of quetiapine 25mg PO qhs, which she appears to be tolerating well. The patient does not have capacity to make informed medical decisions related to placement. She would benefit from placement in a rehab or SNF setting. Psychiatry is signing off but can be reached for further consultation in the event that the patient's presentation changes. Continued Medication Management: Start Medication Medications: Current Medications Acetaminophen (Tylenol Tab*) 650 mg PO Q6H PRN PRN Reason: FEVER/PAIN Cyanocobalamin (Vitamin B12 Tab*) 1,000 mcg PO DAILY [facility] Last Admin: 12/23/17 09:02 Dose: 1,000 mcg Heparin Sodium (Porcine) (Heparin Vial(*)) 5,000 units SUBCUT Q12HR [facility] Last Admin: 12/23/17 09:04 Dose: 5,000 units Hydralazine HCl (Apresoline Iv*) 5 mg IV SLOW PU Q6H PRN PRN Reason: SYSTOLIC BP GREATER THAN: Ondansetron HCl (Zofran 40 Mg Vial*) 4 mg IV Q6H PRN PRN Reason: NAUSEA Quetiapine Fumarate (Seroquel Tab*) 25 mg PO BEDTIME [facility] Last Admin: 12/22/17 21:55 Dose: 25 mg - Discharge Plan Discharge Plan: Outpatient Follow Up
--- NOTE | 2017-12-23 12:14 | RAD ---
INDICATION: Carotid stenosis. Syncope. COMPARISON: None TECHNIQUE: Transverse and longitudinal scans of the carotid and vertebral arteries were performed with madrigal scale, color Doppler, and spectral Doppler imaging. Stenosis criteria is based on flow velocities that correlate with visual internal carotid artery diameter (NASCET criteria) FINDINGS: Right carotid: There is no significant plaque involving the bifurcation. There is no spectral broadening. The peak systolic velocity of the internal carotid artery is 60 cm/s and the peak diastolic velocity 13 cm/s. The ICA/CCA ratio is calculated at 0.8. There is no stenosis. Left carotid: There is no significant plaque involving the bifurcation. There is no spectral broadening. The peak systolic velocity of the internal carotid artery is 62 cm/s and the peak diastolic velocity 16 cm/s. The ICA/CCA ratio is calculated at 0.7. There is no stenosis. Right vertebral: Right vertebral waveforms are normal and the flow is antegrade. Left vertebral: Left vertebral waveforms are normal and the flow is antegrade. IMPRESSION: ESSENTIALLY NORMAL EXAMINATION. NO EVIDENCE OF CAROTID STENOSIS. CPT II Codes: 3100F RS
--- NOTE | 2017-12-23 13:10 | PN ---
Subjective Date of Service: 12/23/17 Interval History: Patient seen, difficult to examine. On the phone stating she has "very important business". Appears distracted. No complaints, no acute overnight events. Objective Active Medications: Acetaminophen (Tylenol Tab*) 650 mg PO Q6H PRN PRN Reason: FEVER/PAIN Cyanocobalamin (Vitamin B12 Tab*) 1,000 mcg PO DAILY [facility] Last Admin: 12/23/17 09:02 Dose: 1,000 mcg Heparin Sodium (Porcine) (Heparin Vial(*)) 5,000 units SUBCUT Q12HR [facility] Last Admin: 12/23/17 09:04 Dose: 5,000 units Hydralazine HCl (Apresoline Iv*) 5 mg IV SLOW PU Q6H PRN PRN Reason: SYSTOLIC BP GREATER THAN: Ondansetron HCl (Zofran 40 Mg Vial*) 4 mg IV Q6H PRN PRN Reason: NAUSEA Quetiapine Fumarate (Seroquel Tab*) 25 mg PO BEDTIME [facility] Last Admin: 12/22/17 21:55 Dose: 25 mg Vital Signs - 8 hr 12/23/17 12/23/17 12/23/17 07:48 08:00 12:11 Temperature 98.3 F 100.0 F Pulse Rate 80 74 Respiratory 16 16 Rate Blood Pressure 140/70 (mmHg) O2 Sat by Pulse 100 100 Oximetry Oxygen Devices in Use Now: None Appearance: Alert, NAD Eyes: No Scleral Icterus, PERRLA Ears/Nose/Mouth/Throat: NL Teeth, Lips, Gums, Mucous Membranes Moist Neck: NL Appearance and Movements; NL JVP, Trachea Midline Respiratory: Symmetrical Chest Expansion and Respiratory Effort, Clear to Auscultation Cardiovascular: NL Sounds; No Murmurs; No JVD, RRR, No Edema Abdominal: NL Sounds; No Tenderness; No Distention Extremities: No Edema - alert to person and place Neurological: NL Gait Nutrition: Taking PO's Result Diagrams: 12/23/17 04:22 12/23/17 04:22 Additional Lab and Data: Lab Results 12/21/17 12/21/17 12/21/17 Range/Units 18:55 18:55 18:55 WBC 4.7 (3.5-10.8) 10^3/ul RBC 4.27 (4.00-5.40) 10^6/ul Hgb 11.8 L (12.0-16.0) g/dl Hct 35 (35-47) % MCV 81 (80-97) fL MCH 28 (27-31) pg MCHC 34 (31-36) g/dl RDW 14 (10.5-15) % Plt Count 185 (150-450) 10^3/ul MPV 8.4 (7.4-10.4) um3 Neut % (Auto) 68.9 (38-83) % Lymph % (Auto) 15.1 L (25-47) % [place] % (Auto) 12.2 H (0-7) % Eos % (Auto) 2.5 (0-6) % Baso % (Auto) 1.3 (0-2) % Absolute Neuts (auto) 3.2 (1.5-7.7) 10^3/ul Absolute Lymphs (auto) 0.7 L (1.0-4.8) 10^3/ul Absolute Monos (auto) 0.6 (0-0.8) 10^3/ul Absolute Eos (auto) 0.1 (0-0.6) 10^3/ul Absolute Basos (auto) 0.1 (0-0.2) 10^3/ul Absolute Nucleated RBC 0 10^3/ul Nucleated RBC % 0 INR (Anticoag Therapy) 1.05 H (0.77-1.02) APTT 27.9 (26.0-36.3) seconds VBG pH (7.33-7.43) VBG pCO2 (41-51) mmHg VBG pO2 (35-45) mmHg VBG HCO3 (24-28) mmol/L VBG O2 Saturation (70-80) % VBG Base Excess (0-4) POC Glucose (mg/dL) (70-100) mg/dL Lactic Acid (0.5-2.0) mmol/L Magnesium (1.9-2.7) mg/dL Ammonia (16-53) mcmol/L Total Creatine Kinase (10-223) U/L CK-MB (CK-2) (0.6-6.3) ng/mL Troponin I (<0.04) ng/mL C-Reactive Protein (< 5.00) mg/L B-Natriuretic Peptide ( - 100) pg/mL Lipase (11.0-82.0) U/L TSH (0.34-5.60) mcIU/mL Urine Color Yellow Urine Appearance Clear Urine pH 5.0 (5-9) Ur Specific [place] 1.014 (1.010-1.030) Urine Protein Negative (Negative) Urine Ketones Trace A (Negative) Urine Blood Negative (Negative) Urine Nitrate Negative (Negative) Urine Bilirubin Negative (Negative) Urine Urobilinogen Negative (Negative) Ur Leukocyte Esterase Negative (Negative) Urine Glucose Negative (Negative) Acetaminophen mcg/mL Serum Alcohol (<10) mg/dL 12/21/17 12/21/17 12/21/17 Range/Units 18:55 18:55 18:55 WBC (3.5-10.8) 10^3/ul RBC (4.00-5.40) 10^6/ul Hgb (12.0-16.0) g/dl Hct (35-47) % MCV (80-97) fL MCH (27-31) pg MCHC (31-36) g/dl RDW (10.5-15) % Plt Count (150-450) 10^3/ul MPV (7.4-10.4) um3 Neut % (Auto) (38-83) % Lymph % (Auto) (25-47) % [place] % (Auto) (0-7) % Eos % (Auto) (0-6) % Baso % (Auto) (0-2) % Absolute Neuts (auto) (1.5-7.7) 10^3/ul Absolute Lymphs (auto) (1.0-4.8) 10^3/ul Absolute Monos (auto) (0-0.8) 10^3/ul Absolute Eos (auto) (0-0.6) 10^3/ul Absolute Basos (auto) (0-0.2) 10^3/ul Absolute Nucleated RBC 10^3/ul Nucleated RBC % INR (Anticoag Therapy) (0.77-1.02) APTT (26.0-36.3) seconds VBG pH (7.33-7.43) VBG pCO2 (41-51) mmHg VBG pO2 (35-45) mmHg VBG HCO3 (24-28) mmol/L VBG O2 Saturation (70-80) % VBG Base Excess (0-4) POC Glucose (mg/dL) (70-100) mg/dL Lactic Acid 0.8 (0.5-2.0) mmol/L Magnesium 1.9 (1.9-2.7) mg/dL Ammonia 40 (16-53) mcmol/L Total Creatine Kinase 33 (10-223) U/L CK-MB (CK-2) 2.2 (0.6-6.3) ng/mL Troponin I 0.01 (<0.04) ng/mL C-Reactive Protein 3.45 (< 5.00) mg/L B-Natriuretic Peptide 69 ( - 100) pg/mL Lipase 35 (11.0-82.0) U/L TSH 1.60 (0.34-5.60) mcIU/mL Urine Color Urine Appearance Urine pH (5-9) Ur Specific [place] (1.010-1.030) Urine Protein (Negative) Urine Ketones (Negative) Urine Blood (Negative) Urine Nitrate (Negative) Urine Bilirubin (Negative) Urine Urobilinogen (Negative) Ur Leukocyte Esterase (Negative) Urine Glucose (Negative) Acetaminophen < 15 mcg/mL Serum Alcohol < 10 (<10) mg/dL 12/21/17 12/21/17 Range/Units 19:10 19:45 WBC (3.5-10.8) 10^3/ul RBC (4.00-5.40) 10^6/ul Hgb (12.0-16.0) g/dl Hct (35-47) % MCV (80-97) fL MCH (27-31) pg MCHC (31-36) g/dl RDW (10.5-15) % Plt Count (150-450) 10^3/ul MPV (7.4-10.4) um3 Neut % (Auto) (38-83) % Lymph % (Auto) (25-47) % [place] % (Auto) (0-7) % Eos % (Auto) (0-6) % Baso % (Auto) (0-2) % Absolute Neuts (auto) (1.5-7.7) 10^3/ul Absolute Lymphs (auto) (1.0-4.8) 10^3/ul Absolute Monos (auto) (0-0.8) 10^3/ul Absolute Eos (auto) (0-0.6) 10^3/ul Absolute Basos (auto) (0-0.2) 10^3/ul Absolute Nucleated RBC 10^3/ul Nucleated RBC % INR (Anticoag Therapy) (0.77-1.02) APTT (26.0-36.3) seconds VBG pH 7.35 (7.33-7.43) VBG pCO2 37 L (41-51) mmHg VBG pO2 57 H (35-45) mmHg VBG HCO3 21.1 L (24-28) mmol/L VBG O2 Saturation 92.5 H (70-80) % VBG Base Excess -4.7 L (0-4) POC Glucose (mg/dL) 141 H (70-100) mg/dL Lactic Acid (0.5-2.0) mmol/L Magnesium (1.9-2.7) mg/dL Ammonia (16-53) mcmol/L Total Creatine Kinase (10-223) U/L CK-MB (CK-2) (0.6-6.3) ng/mL Troponin I (<0.04) ng/mL C-Reactive Protein (< 5.00) mg/L B-Natriuretic Peptide ( - 100) pg/mL Lipase (11.0-82.0) U/L TSH (0.34-5.60) mcIU/mL Urine Color Urine Appearance Urine pH (5-9) Ur Specific [place] (1.010-1.030) Urine Protein (Negative) Urine Ketones (Negative) Urine Blood (Negative) Urine Nitrate (Negative) Urine Bilirubin (Negative) Urine Urobilinogen (Negative) Ur Leukocyte Esterase (Negative) Urine Glucose (Negative) Acetaminophen mcg/mL Serum Alcohol (<10) mg/dL Assess/Plan/Problems-Billing Assessment: This is a 77 year old female with no reported medical history that presented to the ER with EMS for dehydration and collapse, with subsequent bizarre behavior 2 /2 dementia. - Patient Problems (1) Syncope and collapse Code(s): R55 - SYNCOPE AND COLLAPSE SNOMED Code(s): 092176992 Comment: - 2/2 Heat exhaustion and dehydration at admission - ECHO negative for patho - Carotid US negative - TSH normal (2) Dementia with behavioral disturbance Code(s): F03.91 - UNSPECIFIED DEMENTIA WITH BEHAVIORAL DISTURBANCE SNOMED Code (s): 9156902748909 Comment: - Unclear as to dementia type - vascular? alzheimers? - Responded well to quetiapine last night - Remains paranoid but with some improvement - Per psychiatry, patient does not have capacity - Plan for SNF, SW reaching out to POA (3) Osteoarthritis Code(s): M19.90 - UNSPECIFIED OSTEOARTHRITIS, UNSPECIFIED SITE SNOMED Code(s) : 621134503 Comment: - Continue PRN Tylenol (4) DVT prophylaxis Code(s): MNU2537 - SNOMED Code(s): 332371174 Comment: - HSQ q12H given advanced age Status and Disposition: Dispo pending bed availability in a memory unit.
[2017-12-23] MEDS: QUEtiapine TAB* 25 MG PO SCH (20:56)
[2017-12-24] MEDS: Cyanocobalamin TAB* 500 MCG PO SCH (08:34)
[2017-12-24] MEDS: Heparin VIAL(*) 5000 UNITS/ML VIAL (FIVE THOUSAND) SUBCUT SCH ×2 (08:34→20:45)
--- NOTE | 2017-12-24 15:10 | PN ---
Subjective Date of Service: 12/24/17 Interval History: Patient seen and examined. Family friend and his daughter are at bedside. Patient has no complaints today, appears appropriate and lucid. No acute overnight events per record. Patient expresses understanding of POC and DC to SNF, but her metation waxes and wanes. At this time, no paranoid delusions evident. Objective Active Medications: Acetaminophen (Tylenol Tab*) 650 mg PO Q6H PRN PRN Reason: FEVER/PAIN Cyanocobalamin (Vitamin B12 Tab*) 1,000 mcg PO DAILY [facility] Last Admin: 12/24/17 08:34 Dose: 1,000 mcg Heparin Sodium (Porcine) (Heparin Vial(*)) 5,000 units SUBCUT Q12HR [facility] Last Admin: 12/24/17 08:34 Dose: 5,000 units Hydralazine HCl (Apresoline Iv*) 5 mg IV SLOW PU Q6H PRN PRN Reason: SYSTOLIC BP GREATER THAN: Ondansetron HCl (Zofran 40 Mg Vial*) 4 mg IV Q6H PRN PRN Reason: NAUSEA Quetiapine Fumarate (Seroquel Tab*) 25 mg PO BEDTIME [facility] Last Admin: 12/23/17 20:56 Dose: 25 mg Vital Signs - 8 hr 12/24/17 12/24/17 07:45 08:00 Temperature 97.4 F Pulse Rate 84 Respiratory 16 16 Rate Blood Pressure 146/62 (mmHg) O2 Sat by Pulse 98 Oximetry Oxygen Devices in Use Now: None Appearance: Alert, NAD Ears/Nose/Mouth/Throat: Clear Oropharnyx, Mucous Membranes Moist Neck: NL Appearance and Movements; NL JVP, Trachea Midline Respiratory: Symmetrical Chest Expansion and Respiratory Effort, Clear to Auscultation Cardiovascular: NL Sounds; No Murmurs; No JVD, RRR Extremities: No Edema Skin: No Rash or Ulcers Neurological: Alert and Oriented x 3, NL Gait Nutrition: Taking PO's Result Diagrams: 12/23/17 04:22 12/23/17 04:22 Additional Lab and Data: Lab Results 12/21/17 12/21/17 12/21/17 Range/Units 18:55 18:55 18:55 WBC 4.7 (3.5-10.8) 10^3/ul RBC 4.27 (4.00-5.40) 10^6/ul Hgb 11.8 L (12.0-16.0) g/dl Hct 35 (35-47) % MCV 81 (80-97) fL MCH 28 (27-31) pg MCHC 34 (31-36) g/dl RDW 14 (10.5-15) % Plt Count 185 (150-450) 10^3/ul MPV 8.4 (7.4-10.4) um3 Neut % (Auto) 68.9 (38-83) % Lymph % (Auto) 15.1 L (25-47) % [place] % (Auto) 12.2 H (0-7) % Eos % (Auto) 2.5 (0-6) % Baso % (Auto) 1.3 (0-2) % Absolute Neuts (auto) 3.2 (1.5-7.7) 10^3/ul Absolute Lymphs (auto) 0.7 L (1.0-4.8) 10^3/ul Absolute Monos (auto) 0.6 (0-0.8) 10^3/ul Absolute Eos (auto) 0.1 (0-0.6) 10^3/ul Absolute Basos (auto) 0.1 (0-0.2) 10^3/ul Absolute Nucleated RBC 0 10^3/ul Nucleated RBC % 0 INR (Anticoag Therapy) 1.05 H (0.77-1.02) APTT 27.9 (26.0-36.3) seconds VBG pH (7.33-7.43) VBG pCO2 (41-51) mmHg VBG pO2 (35-45) mmHg VBG HCO3 (24-28) mmol/L VBG O2 Saturation (70-80) % VBG Base Excess (0-4) POC Glucose (mg/dL) (70-100) mg/dL Lactic Acid (0.5-2.0) mmol/L Magnesium (1.9-2.7) mg/dL Ammonia (16-53) mcmol/L Total Creatine Kinase (10-223) U/L CK-MB (CK-2) (0.6-6.3) ng/mL Troponin I (<0.04) ng/mL C-Reactive Protein (< 5.00) mg/L B-Natriuretic Peptide ( - 100) pg/mL Lipase (11.0-82.0) U/L TSH (0.34-5.60) mcIU/mL Urine Color Yellow Urine Appearance Clear Urine pH 5.0 (5-9) Ur Specific [place] 1.014 (1.010-1.030) Urine Protein Negative (Negative) Urine Ketones Trace A (Negative) Urine Blood Negative (Negative) Urine Nitrate Negative (Negative) Urine Bilirubin Negative (Negative) Urine Urobilinogen Negative (Negative) Ur Leukocyte Esterase Negative (Negative) Urine Glucose Negative (Negative) Acetaminophen mcg/mL Serum Alcohol (<10) mg/dL 12/21/17 12/21/17 12/21/17 Range/Units 18:55 18:55 18:55 WBC (3.5-10.8) 10^3/ul RBC (4.00-5.40) 10^6/ul Hgb (12.0-16.0) g/dl Hct (35-47) % MCV (80-97) fL MCH (27-31) pg MCHC (31-36) g/dl RDW (10.5-15) % Plt Count (150-450) 10^3/ul MPV (7.4-10.4) um3 Neut % (Auto) (38-83) % Lymph % (Auto) (25-47) % [place] % (Auto) (0-7) % Eos % (Auto) (0-6) % Baso % (Auto) (0-2) % Absolute Neuts (auto) (1.5-7.7) 10^3/ul Absolute Lymphs (auto) (1.0-4.8) 10^3/ul Absolute Monos (auto) (0-0.8) 10^3/ul Absolute Eos (auto) (0-0.6) 10^3/ul Absolute Basos (auto) (0-0.2) 10^3/ul Absolute Nucleated RBC 10^3/ul Nucleated RBC % INR (Anticoag Therapy) (0.77-1.02) APTT (26.0-36.3) seconds VBG pH (7.33-7.43) VBG pCO2 (41-51) mmHg VBG pO2 (35-45) mmHg VBG HCO3 (24-28) mmol/L VBG O2 Saturation (70-80) % VBG Base Excess (0-4) POC Glucose (mg/dL) (70-100) mg/dL Lactic Acid 0.8 (0.5-2.0) mmol/L Magnesium 1.9 (1.9-2.7) mg/dL Ammonia 40 (16-53) mcmol/L Total Creatine Kinase 33 (10-223) U/L CK-MB (CK-2) 2.2 (0.6-6.3) ng/mL Troponin I 0.01 (<0.04) ng/mL C-Reactive Protein 3.45 (< 5.00) mg/L B-Natriuretic Peptide 69 ( - 100) pg/mL Lipase 35 (11.0-82.0) U/L TSH 1.60 (0.34-5.60) mcIU/mL Urine Color Urine Appearance Urine pH (5-9) Ur Specific [place] (1.010-1.030) Urine Protein (Negative) Urine Ketones (Negative) Urine Blood (Negative) Urine Nitrate (Negative) Urine Bilirubin (Negative) Urine Urobilinogen (Negative) Ur Leukocyte Esterase (Negative) Urine Glucose (Negative) Acetaminophen < 15 mcg/mL Serum Alcohol < 10 (<10) mg/dL 18 12/21/17 Range/Units 19:10 19:45 WBC (3.5-10.8) 10^3/ul RBC (4.00-5.40) 10^6/ul Hgb (12.0-16.0) g/dl Hct (35-47) % MCV (80-97) fL MCH (27-31) pg MCHC (31-36) g/dl RDW (10.5-15) % Plt Count (150-450) 10^3/ul MPV (7.4-10.4) um3 Neut % (Auto) (38-83) % Lymph % (Auto) (25-47) % [place] % (Auto) (0-7) % Eos % (Auto) (0-6) % Baso % (Auto) (0-2) % Absolute Neuts (auto) (1.5-7.7) 10^3/ul Absolute Lymphs (auto) (1.0-4.8) 10^3/ul Absolute Monos (auto) (0-0.8) 10^3/ul Absolute Eos (auto) (0-0.6) 10^3/ul Absolute Basos (auto) (0-0.2) 10^3/ul Absolute Nucleated RBC 10^3/ul Nucleated RBC % INR (Anticoag Therapy) (0.77-1.02) APTT (26.0-36.3) seconds VBG pH 7.35 (7.33-7.43) VBG pCO2 37 L (41-51) mmHg VBG pO2 57 H (35-45) mmHg VBG HCO3 21.1 L (24-28) mmol/L VBG O2 Saturation 92.5 H (70-80) % VBG Base Excess -4.7 L (0-4) POC Glucose (mg/dL) 141 H (70-100) mg/dL Lactic Acid (0.5-2.0) mmol/L Magnesium (1.9-2.7) mg/dL Ammonia (16-53) mcmol/L Total Creatine Kinase (10-223) U/L CK-MB (CK-2) (0.6-6.3) ng/mL Troponin I (<0.04) ng/mL C-Reactive Protein (< 5.00) mg/L B-Natriuretic Peptide ( - 100) pg/mL Lipase (11.0-82.0) U/L TSH (0.34-5.60) mcIU/mL Urine Color Urine Appearance Urine pH (5-9) Ur Specific [place] (1.010-1.030) Urine Protein (Negative) Urine Ketones (Negative) Urine Blood (Negative) Urine Nitrate (Negative) Urine Bilirubin (Negative) Urine Urobilinogen (Negative) Ur Leukocyte Esterase (Negative) Urine Glucose (Negative) Acetaminophen mcg/mL Serum Alcohol (<10) mg/dL Assess/Plan/Problems-Billing Assessment: This is a 77 year old female with no reported medical history that presented to the ER with EMS for dehydration and collapse, with subsequent bizarre behavior 2 /2 dementia. - Patient Problems (1) Syncope and collapse Code(s): R55 - SYNCOPE AND COLLAPSE SNOMED Code(s): 542760321 Comment: - 2/2 Heat exhaustion and dehydration at admission - ECHO negative for patho - Carotid US negative - TSH normal - Resolved (2) Dementia with behavioral disturbance Code(s): F03.91 - UNSPECIFIED DEMENTIA WITH BEHAVIORAL DISTURBANCE SNOMED Code (s): 4390602152872 Comment: - Unclear as to dementia type - vascular? alzheimers? - Responded well to quetiapine this admission - Remains paranoid but with improvement over the last 48 hours - Per psychiatry, patient does not have capacity - Plan for SNF, SW communicating with the POA, likely [facility] vs [facility] (3) Osteoarthritis Code(s): M19.90 - UNSPECIFIED OSTEOARTHRITIS, UNSPECIFIED SITE SNOMED Code(s) : 250333165 Comment: - Continue PRN Tylenol (4) DVT prophylaxis Code(s): THY9108 - SNOMED Code(s): 738966275 Comment: - HSQ q12H given advanced age Status and Disposition: Dispo pending bed availability in a memory unit [place] vs [place].
[2017-12-24] MEDS: QUEtiapine TAB* 25 MG PO SCH (20:45)
[2017-12-25] MEDS: Heparin VIAL(*) 5000 UNITS/ML VIAL (FIVE THOUSAND) SUBCUT SCH ×2 (09:06→20:49)
[2017-12-25] MEDS: Cyanocobalamin TAB* 500 MCG PO SCH (09:06)
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
--- NOTE | 2017-12-25 17:07 | PN ---
Subjective Date of Service: 12/25/17 Interval History: Patient seen and examined. Mood appropriate, no agitation or issues noted. States she is feeling better. Psychiatric notes reviewed. Medication being titrated this evening. Denies SOB, no chest pain no further complaints. Objective Active Medications: Acetaminophen (Tylenol Tab*) 650 mg PO Q6H PRN PRN Reason: FEVER/PAIN Cyanocobalamin (Vitamin B12 Tab*) 1,000 mcg PO DAILY [facility] Last Admin: 12/25/17 09:06 Dose: 1,000 mcg Heparin Sodium (Porcine) (Heparin Vial(*)) 5,000 units SUBCUT Q12HR [facility] Last Admin: 12/25/17 09:06 Dose: 5,000 units Hydralazine HCl (Apresoline Iv*) 5 mg IV SLOW PU Q6H PRN PRN Reason: SYSTOLIC BP GREATER THAN: Ondansetron HCl (Zofran 40 Mg Vial*) 4 mg IV Q6H PRN PRN Reason: NAUSEA Quetiapine Fumarate (Seroquel Tab*) 50 mg PO BEDTIME [facility] Oxygen Devices in Use Now: None Appearance: Alert, thin, NAD Eyes: No Scleral Icterus, PERRLA Ears/Nose/Mouth/Throat: Mucous Membranes Moist Neck: NL Appearance and Movements; NL JVP, Trachea Midline Respiratory: Symmetrical Chest Expansion and Respiratory Effort, Clear to Auscultation Cardiovascular: NL Sounds; No Murmurs; No JVD, No Edema Abdominal: NL Sounds; No Tenderness; No Distention Skin: - - reddened areas on UE 2/2 tape Neurological: Alert and Oriented x 3 Nutrition: Taking PO's Result Diagrams: 12/23/17 04:22 12/23/17 04:22 Additional Lab and Data: Lab Results 12/21/17 12/21/17 12/21/17 Range/Units 18:55 18:55 18:55 WBC 4.7 (3.5-10.8) 10^3/ul RBC 4.27 (4.00-5.40) 10^6/ul Hgb 11.8 L (12.0-16.0) g/dl Hct 35 (35-47) % MCV 81 (80-97) fL MCH 28 (27-31) pg MCHC 34 (31-36) g/dl RDW 14 (10.5-15) % Plt Count 185 (150-450) 10^3/ul MPV 8.4 (7.4-10.4) um3 Neut % (Auto) 68.9 (38-83) % Lymph % (Auto) 15.1 L (25-47) % [place] % (Auto) 12.2 H (0-7) % Eos % (Auto) 2.5 (0-6) % Baso % (Auto) 1.3 (0-2) % Absolute Neuts (auto) 3.2 (1.5-7.7) 10^3/ul Absolute Lymphs (auto) 0.7 L (1.0-4.8) 10^3/ul Absolute Monos (auto) 0.6 (0-0.8) 10^3/ul Absolute Eos (auto) 0.1 (0-0.6) 10^3/ul Absolute Basos (auto) 0.1 (0-0.2) 10^3/ul Absolute Nucleated RBC 0 10^3/ul Nucleated RBC % 0 INR (Anticoag Therapy) 1.05 H (0.77-1.02) APTT 27.9 (26.0-36.3) seconds VBG pH (7.33-7.43) VBG pCO2 (41-51) mmHg VBG pO2 (35-45) mmHg VBG HCO3 (24-28) mmol/L VBG O2 Saturation (70-80) % VBG Base Excess (0-4) POC Glucose (mg/dL) (70-100) mg/dL Lactic Acid (0.5-2.0) mmol/L Magnesium (1.9-2.7) mg/dL Ammonia (16-53) mcmol/L Total Creatine Kinase (10-223) U/L CK-MB (CK-2) (0.6-6.3) ng/mL Troponin I (<0.04) ng/mL C-Reactive Protein (< 5.00) mg/L B-Natriuretic Peptide ( - 100) pg/mL Lipase (11.0-82.0) U/L TSH (0.34-5.60) mcIU/mL Urine Color Yellow Urine Appearance Clear Urine pH 5.0 (5-9) Ur Specific [place] 1.014 (1.010-1.030) Urine Protein Negative (Negative) Urine Ketones Trace A (Negative) Urine Blood Negative (Negative) Urine Nitrate Negative (Negative) Urine Bilirubin Negative (Negative) Urine Urobilinogen Negative (Negative) Ur Leukocyte Esterase Negative (Negative) Urine Glucose Negative (Negative) Acetaminophen mcg/mL Serum Alcohol (<10) mg/dL 12/21/17 12/21/17 12/21/17 Range/Units 18:55 18:55 18:55 WBC (3.5-10.8) 10^3/ul RBC (4.00-5.40) 10^6/ul Hgb (12.0-16.0) g/dl Hct (35-47) % MCV (80-97) fL MCH (27-31) pg MCHC (31-36) g/dl RDW (10.5-15) % Plt Count (150-450) 10^3/ul MPV (7.4-10.4) um3 Neut % (Auto) (38-83) % Lymph % (Auto) (25-47) % [place] % (Auto) (0-7) % Eos % (Auto) (0-6) % Baso % (Auto) (0-2) % Absolute Neuts (auto) (1.5-7.7) 10^3/ul Absolute Lymphs (auto) (1.0-4.8) 10^3/ul Absolute Monos (auto) (0-0.8) 10^3/ul Absolute Eos (auto) (0-0.6) 10^3/ul Absolute Basos (auto) (0-0.2) 10^3/ul Absolute Nucleated RBC 10^3/ul Nucleated RBC % INR (Anticoag Therapy) (0.77-1.02) APTT (26.0-36.3) seconds VBG pH (7.33-7.43) VBG pCO2 (41-51) mmHg VBG pO2 (35-45) mmHg VBG HCO3 (24-28) mmol/L VBG O2 Saturation (70-80) % VBG Base Excess (0-4) POC Glucose (mg/dL) (70-100) mg/dL Lactic Acid 0.8 (0.5-2.0) mmol/L Magnesium 1.9 (1.9-2.7) mg/dL Ammonia 40 (16-53) mcmol/L Total Creatine Kinase 33 (10-223) U/L CK-MB (CK-2) 2.2 (0.6-6.3) ng/mL Troponin I 0.01 (<0.04) ng/mL C-Reactive Protein 3.45 (< 5.00) mg/L B-Natriuretic Peptide 69 ( - 100) pg/mL Lipase 35 (11.0-82.0) U/L TSH 1.60 (0.34-5.60) mcIU/mL Urine Color Urine Appearance Urine pH (5-9) Ur Specific [place] (1.010-1.030) Urine Protein (Negative) Urine Ketones (Negative) Urine Blood (Negative) Urine Nitrate (Negative) Urine Bilirubin (Negative) Urine Urobilinogen (Negative) Ur Leukocyte Esterase (Negative) Urine Glucose (Negative) Acetaminophen < 15 mcg/mL Serum Alcohol < 10 (<10) mg/dL 12/21/17 12/21/17 Range/Units 19:10 19:45 WBC (3.5-10.8) 10^3/ul RBC (4.00-5.40) 10^6/ul Hgb (12.0-16.0) g/dl Hct (35-47) % MCV (80-97) fL MCH (27-31) pg MCHC (31-36) g/dl RDW (10.5-15) % Plt Count (150-450) 10^3/ul MPV (7.4-10.4) um3 Neut % (Auto) (38-83) % Lymph % (Auto) (25-47) % [place] % (Auto) (0-7) % Eos % (Auto) (0-6) % Baso % (Auto) (0-2) % Absolute Neuts (auto) (1.5-7.7) 10^3/ul Absolute Lymphs (auto) (1.0-4.8) 10^3/ul Absolute Monos (auto) (0-0.8) 10^3/ul Absolute Eos (auto) (0-0.6) 10^3/ul Absolute Basos (auto) (0-0.2) 10^3/ul Absolute Nucleated RBC 10^3/ul Nucleated RBC % INR (Anticoag Therapy) (0.77-1.02) APTT (26.0-36.3) seconds VBG pH 7.35 (7.33-7.43) VBG pCO2 37 L (41-51) mmHg VBG pO2 57 H (35-45) mmHg VBG HCO3 21.1 L (24-28) mmol/L VBG O2 Saturation 92.5 H (70-80) % VBG Base Excess -4.7 L (0-4) POC Glucose (mg/dL) 141 H (70-100) mg/dL Lactic Acid (0.5-2.0) mmol/L Magnesium (1.9-2.7) mg/dL Ammonia (16-53) mcmol/L Total Creatine Kinase (10-223) U/L CK-MB (CK-2) (0.6-6.3) ng/mL Troponin I (<0.04) ng/mL C-Reactive Protein (< 5.00) mg/L B-Natriuretic Peptide ( - 100) pg/mL Lipase (11.0-82.0) U/L TSH (0.34-5.60) mcIU/mL Urine Color Urine Appearance Urine pH (5-9) Ur Specific [place] (1.010-1.030) Urine Protein (Negative) Urine Ketones (Negative) Urine Blood (Negative) Urine Nitrate (Negative) Urine Bilirubin (Negative) Urine Urobilinogen (Negative) Ur Leukocyte Esterase (Negative) Urine Glucose (Negative) Acetaminophen mcg/mL Serum Alcohol (<10) mg/dL Microbiology and Other Data: Microbiology 12/21/17 19:45 Aerobic Blood Culture - Preliminary Blood Venous No Growth Day 3 Anaerobic Blood Culture - Preliminary No Growth Day 3 12/21/17 19:51 Aerobic Blood Culture - Preliminary Blood Venous No Growth Day 3 Anaerobic Blood Culture - Preliminary No Growth Day 3 Assess/Plan/Problems-Billing Assessment: This is a 77 year old female with no reported medical history that presented to the ER with EMS for dehydration and collapse, with subsequent bizarre behavior 2 /2 dementia. - Patient Problems (1) Syncope and collapse Code(s): R55 - SYNCOPE AND COLLAPSE SNOMED Code(s): 848332594 Comment: - 2/2 Heat exhaustion and dehydration at admission - ECHO negative for patho - Carotid US negative - TSH normal - Resolved (2) Dementia with behavioral disturbance Code(s): F03.91 - UNSPECIFIED DEMENTIA WITH BEHAVIORAL DISTURBANCE SNOMED Code (s): 1254667505179 Comment: - Unclear as to dementia type - vascular? alzheimers? - Quetiapine being titrated by psychiatry, monitor for effect - Remains paranoid and delusional, but with some improvement over the last 48 hours - Per psychiatry, patient does not have capacity - Plan for SNF if accepted but financials are an issue. Plan for SWING status until appropriate bed obtained. (3) Osteoarthritis Code(s): M19.90 - UNSPECIFIED OSTEOARTHRITIS, UNSPECIFIED SITE SNOMED Code(s) : 083037287 Comment: - Continue PRN Tylenol (4) DVT prophylaxis Code(s): KIJ4065 - SNOMED Code(s): 880687871 Comment: - HSQ q12H given advanced age Status and Disposition: Dispo Swing status until bed obtained.
[2017-12-25] MEDS: QUEtiapine TAB* 25 MG PO SCH (20:48)
[2017-12-26] MEDS: Heparin VIAL(*) 5000 UNITS/ML VIAL (FIVE THOUSAND) SUBCUT SCH (08:28)
[2017-12-26] MEDS: Cyanocobalamin TAB* 500 MCG PO SCH (08:31)
--- NOTE | 2017-12-26 12:30 | PN ---
Subjective Date of Service: 12/26/17 Interval History: Patient seen and examined, remains paranoid but no acute issues overnight. Responded well to increased dose of seroquel. Denies fever, fatigue or chills, no complaints. Objective Active Medications: Acetaminophen (Tylenol Tab*) 650 mg PO Q6H PRN PRN Reason: FEVER/PAIN Last Admin: 12/25/17 17:42 Dose: 650 mg Cyanocobalamin (Vitamin B12 Tab*) 1,000 mcg PO DAILY [facility] Last Admin: 12/26/17 08:31 Dose: 1,000 mcg Heparin Sodium (Porcine) (Heparin Vial(*)) 5,000 units SUBCUT Q12HR [facility] Last Admin: 12/26/17 08:28 Dose: 5,000 units Hydralazine HCl (Apresoline Iv*) 5 mg IV SLOW PU Q6H PRN PRN Reason: SYSTOLIC BP GREATER THAN: Ondansetron HCl (Zofran 40 Mg Vial*) 4 mg IV Q6H PRN PRN Reason: NAUSEA Quetiapine Fumarate (Seroquel Tab*) 50 mg PO BEDTIME [facility] Last Admin: 12/25/17 20:48 Dose: 50 mg Vital Signs - 8 hr 12/26/17 12/26/17 07:56 08:00 Temperature 99.0 F Pulse Rate 80 Respiratory 16 16 Rate Blood Pressure 133/68 (mmHg) O2 Sat by Pulse 100 Oximetry Oxygen Devices in Use Now: None Appearance: Alert, NAD Eyes: No Scleral Icterus, PERRLA Ears/Nose/Mouth/Throat: Mucous Membranes Moist Neck: NL Appearance and Movements; NL JVP, Trachea Midline Respiratory: Symmetrical Chest Expansion and Respiratory Effort, Clear to Auscultation Cardiovascular: NL Sounds; No Murmurs; No JVD, RRR Abdominal: NL Sounds; No Tenderness; No Distention Extremities: No Edema Skin: No Rash or Ulcers Neurological: Alert and Oriented x 3, NL Muscle Strength and Tone Nutrition: Taking PO's Result Diagrams: 12/23/17 04:22 12/23/17 04:22 Additional Lab and Data: Lab Results 12/21/17 12/21/17 12/21/17 Range/Units 18:55 18:55 18:55 WBC 4.7 (3.5-10.8) 10^3/ul RBC 4.27 (4.00-5.40) 10^6/ul Hgb 11.8 L (12.0-16.0) g/dl Hct 35 (35-47) % MCV 81 (80-97) fL MCH 28 (27-31) pg MCHC 34 (31-36) g/dl RDW 14 (10.5-15) % Plt Count 185 (150-450) 10^3/ul MPV 8.4 (7.4-10.4) um3 Neut % (Auto) 68.9 (38-83) % Lymph % (Auto) 15.1 L (25-47) % Bee % (Auto) 12.2 H (0-7) % Eos % (Auto) 2.5 (0-6) % Baso % (Auto) 1.3 (0-2) % Absolute Neuts (auto) 3.2 (1.5-7.7) 10^3/ul Absolute Lymphs (auto) 0.7 L (1.0-4.8) 10^3/ul Absolute Monos (auto) 0.6 (0-0.8) 10^3/ul Absolute Eos (auto) 0.1 (0-0.6) 10^3/ul Absolute Basos (auto) 0.1 (0-0.2) 10^3/ul Absolute Nucleated RBC 0 10^3/ul Nucleated RBC % 0 INR (Anticoag Therapy) 1.05 H (0.77-1.02) APTT 27.9 (26.0-36.3) seconds VBG pH (7.33-7.43) VBG pCO2 (41-51) mmHg VBG pO2 (35-45) mmHg VBG HCO3 (24-28) mmol/L VBG O2 Saturation (70-80) % VBG Base Excess (0-4) POC Glucose (mg/dL) (70-100) mg/dL Lactic Acid (0.5-2.0) mmol/L Magnesium (1.9-2.7) mg/dL Ammonia (16-53) mcmol/L Total Creatine Kinase (10-223) U/L CK-MB (CK-2) (0.6-6.3) ng/mL Troponin I (<0.04) ng/mL C-Reactive Protein (< 5.00) mg/L B-Natriuretic Peptide ( - 100) pg/mL Lipase (11.0-82.0) U/L TSH (0.34-5.60) mcIU/mL Urine Color Yellow Urine Appearance Clear Urine pH 5.0 (5-9) Ur Specific [place] 1.014 (1.010-1.030) Urine Protein Negative (Negative) Urine Ketones Trace A (Negative) Urine Blood Negative (Negative) Urine Nitrate Negative (Negative) Urine Bilirubin Negative (Negative) Urine Urobilinogen Negative (Negative) Ur Leukocyte Esterase Negative (Negative) Urine Glucose Negative (Negative) Acetaminophen mcg/mL Serum Alcohol (<10) mg/dL 12/21/17 12/21/17 12/21/17 Range/Units 18:55 18:55 18:55 WBC (3.5-10.8) 10^3/ul RBC (4.00-5.40) 10^6/ul Hgb (12.0-16.0) g/dl Hct (35-47) % MCV (80-97) fL MCH (27-31) pg MCHC (31-36) g/dl RDW (10.5-15) % Plt Count (150-450) 10^3/ul MPV (7.4-10.4) um3 Neut % (Auto) (38-83) % Lymph % (Auto) (25-47) % Bee % (Auto) (0-7) % Eos % (Auto) (0-6) % Baso % (Auto) (0-2) % Absolute Neuts (auto) (1.5-7.7) 10^3/ul Absolute Lymphs (auto) (1.0-4.8) 10^3/ul Absolute Monos (auto) (0-0.8) 10^3/ul Absolute Eos (auto) (0-0.6) 10^3/ul Absolute Basos (auto) (0-0.2) 10^3/ul Absolute Nucleated RBC 10^3/ul Nucleated RBC % INR (Anticoag Therapy) (0.77-1.02) APTT (26.0-36.3) seconds VBG pH (7.33-7.43) VBG pCO2 (41-51) mmHg VBG pO2 (35-45) mmHg VBG HCO3 (24-28) mmol/L VBG O2 Saturation (70-80) % VBG Base Excess (0-4) POC Glucose (mg/dL) (70-100) mg/dL Lactic Acid 0.8 (0.5-2.0) mmol/L Magnesium 1.9 (1.9-2.7) mg/dL Ammonia 40 (16-53) mcmol/L Total Creatine Kinase 33 (10-223) U/L CK-MB (CK-2) 2.2 (0.6-6.3) ng/mL Troponin I 0.01 (<0.04) ng/mL C-Reactive Protein 3.45 (< 5.00) mg/L B-Natriuretic Peptide 69 ( - 100) pg/mL Lipase 35 (11.0-82.0) U/L TSH 1.60 (0.34-5.60) mcIU/mL Urine Color Urine Appearance Urine pH (5-9) Ur Specific [place] (1.010-1.030) Urine Protein (Negative) Urine Ketones (Negative) Urine Blood (Negative) Urine Nitrate (Negative) Urine Bilirubin (Negative) Urine Urobilinogen (Negative) Ur Leukocyte Esterase (Negative) Urine Glucose (Negative) Acetaminophen < 15 mcg/mL Serum Alcohol < 10 (<10) mg/dL 12/21/17 12/21/17 Range/Units 19:10 19:45 WBC (3.5-10.8) 10^3/ul RBC (4.00-5.40) 10^6/ul Hgb (12.0-16.0) g/dl Hct (35-47) % MCV (80-97) fL MCH (27-31) pg MCHC (31-36) g/dl RDW (10.5-15) % Plt Count (150-450) 10^3/ul MPV (7.4-10.4) um3 Neut % (Auto) (38-83) % Lymph % (Auto) (25-47) % Bee % (Auto) (0-7) % Eos % (Auto) (0-6) % Baso % (Auto) (0-2) % Absolute Neuts (auto) (1.5-7.7) 10^3/ul Absolute Lymphs (auto) (1.0-4.8) 10^3/ul Absolute Monos (auto) (0-0.8) 10^3/ul Absolute Eos (auto) (0-0.6) 10^3/ul Absolute Basos (auto) (0-0.2) 10^3/ul Absolute Nucleated RBC 10^3/ul Nucleated RBC % INR (Anticoag Therapy) (0.77-1.02) APTT (26.0-36.3) seconds VBG pH 7.35 (7.33-7.43) VBG pCO2 37 L (41-51) mmHg VBG pO2 57 H (35-45) mmHg VBG HCO3 21.1 L (24-28) mmol/L VBG O2 Saturation 92.5 H (70-80) % VBG Base Excess -4.7 L (0-4) POC Glucose (mg/dL) 141 H (70-100) mg/dL Lactic Acid (0.5-2.0) mmol/L Magnesium (1.9-2.7) mg/dL Ammonia (16-53) mcmol/L Total Creatine Kinase (10-223) U/L CK-MB (CK-2) (0.6-6.3) ng/mL Troponin I (<0.04) ng/mL C-Reactive Protein (< 5.00) mg/L B-Natriuretic Peptide ( - 100) pg/mL Lipase (11.0-82.0) U/L TSH (0.34-5.60) mcIU/mL Urine Color Urine Appearance Urine pH (5-9) Ur Specific [place] (1.010-1.030) Urine Protein (Negative) Urine Ketones (Negative) Urine Blood (Negative) Urine Nitrate (Negative) Urine Bilirubin (Negative) Urine Urobilinogen (Negative) Ur Leukocyte Esterase (Negative) Urine Glucose (Negative) Acetaminophen mcg/mL Serum Alcohol (<10) mg/dL Microbiology and Other Data: Microbiology 12/21/17 19:45 Aerobic Blood Culture - Preliminary Blood Venous No Growth Day 3 Anaerobic Blood Culture - Preliminary No Growth Day 3 12/21/17 19:51 Aerobic Blood Culture - Preliminary Blood Venous No Growth Day 3 Anaerobic Blood Culture - Preliminary No Growth Day 3 Assess/Plan/Problems-Billing Assessment: This is a 77 year old female with no reported medical history that presented to the ER with EMS for dehydration and collapse, with subsequent bizarre behavior 2 /2 dementia. - Patient Problems (1) Syncope and collapse Code(s): R55 - SYNCOPE AND COLLAPSE SNOMED Code(s): 762940606 Comment: - Resolved, likely source was dehydration - Work up negative (2) Dementia with behavioral disturbance Code(s): F03.91 - UNSPECIFIED DEMENTIA WITH BEHAVIORAL DISTURBANCE SNOMED Code (s): 2525738194997 Comment: - Unclear as to dementia type - vascular? alzheimers? - Psych signed off - Seroquel increased last evening - Remains paranoid but stable/improved/appropriate (3) Osteoarthritis Code(s): M19.90 - UNSPECIFIED OSTEOARTHRITIS, UNSPECIFIED SITE SNOMED Code(s) : 831564860 Comment: - Continue PRN Tylenol (4) DVT prophylaxis Code(s): HFR6501 - SNOMED Code(s): 631007572 Comment: - OK to DC heparin, patient is ambulatory Status and Disposition: Discussed extensively with CM in rounds. Patient should go [facility] today , as she has no further skilled needs and is not appropriate for SWING status. Pending placement at SNF when accepted. Please refer to notes regarding disposition. Patient is medically stable at this time.
[2017-12-26] MEDS: QUEtiapine TAB* 25 MG PO SCH (20:55)
[2017-12-27] MEDS: Cyanocobalamin TAB* 500 MCG PO SCH (10:15)
--- NOTE | 2017-12-27 13:27 | CONSULT ---
Identification - Patient Identification Reason for Psychiatric Consultation: Incapacitating Symptoms -: Patient is a 77 year old, F admitted on 12/22/17. - MHU Identification Employment Status: Disabled Hx Psychiatric Hospitalization: No History - Objective HPI: Jennifer is seen for follow up by the psychiatric consult service. She remains calm and pleasant and informs me that her nephew "Refugio" just visited her. I inquire if his correct name is "Antoine", which is the name specified in the notes. "Oh, yes, that's it. He's very nice." She offers no spontaneous delusional statements, but, when pressed, admits that "those people at [facility] still hate me and they followed me to the hotel. They could follow me here too." She seems to be tolerating the addition of quetiapine well and I detect no evidence of sedation. She is in good spirits. Lab Results: Laboratory Tests 12/21/17 12/21/17 12/21/17 18:55 18:55 18:55 WBC 4.7 RBC 4.27 Hgb 11.8 L Hct 35 MCV 81 MCH 28 MCHC 34 RDW 14 Plt Count 185 MPV 8.4 Neut % (Auto) 68.9 Lymph % (Auto) 15.1 L [place] % (Auto) 12.2 H Eos % (Auto) 2.5 Baso % (Auto) 1.3 Absolute Neuts (auto) 3.2 Absolute Lymphs (auto) 0.7 L Absolute Monos (auto) 0.6 Absolute Eos (auto) 0.1 Absolute Basos (auto) 0.1 Absolute Nucleated RBC 0 Nucleated RBC % 0 INR (Anticoag Therapy) 1.05 H APTT 27.9 VBG pH VBG pCO2 VBG pO2 VBG HCO3 VBG O2 Saturation VBG Base Excess Sodium Potassium Chloride Carbon Dioxide Anion Gap BUN Creatinine Est GFR ( Amer) Est GFR (Non-Af Amer) BUN/Creatinine Ratio Glucose POC Glucose (mg/dL) Lactic Acid Calcium Ionized Calcium Phosphorus Magnesium Total Bilirubin AST ALT Alkaline Phosphatase Ammonia Total Creatine Kinase CK-MB (CK-2) Troponin I C-Reactive Protein B-Natriuretic Peptide Total Protein Albumin Globulin Albumin/Globulin Ratio Lipase TSH Urine Color Yellow Urine Appearance Clear Urine pH 5.0 Ur Specific [place] 1.014 Urine Protein Negative Urine Ketones Trace A Urine Blood Negative Urine Nitrate Negative Urine Bilirubin Negative Urine Urobilinogen Negative Ur Leukocyte Esterase Negative Ur Random Sodium Urine Glucose Negative U Q-Kotvhzmni-Bvvfcjimx Urine Noroxymorphone Ur Opiates Note U Normeperidine Screen Ur Codeine Screen Urine Dihydrocodeine U Yqdmgix-8-m-Glucuron Ur Buprenorphine Scrn Ur Norbuprenorphine U Norbuprenorph Glucur Ur Morphine Screen U Jjsaguaa-5-x-Glucuron Ur 6-Monoacetylmorphine Ur Hydrocodone Screen Ur Norhydrocodone Ur Oxycodone Screen Ur Noroxycodone Comment Urine Oxymorphone U Fjfsqc-8-D-Glucuron Ur EDDP (Meth Metab) Urine Methadone Screen U Hydromorphone Screen U Zcgstcjxpybba-7-o-Glucur Urine Naloxone U Nebxyioc-0-g-Glucur Urine Fentanyl Screen Ur Norfentanyl Screen Urine Tapentadol U Lpnajstruj-q-Mrgwko Urine Tramadol Sreen U A-vnahobyew-Zbhldwtn Ur Propoxyphene Screen Ur Norpropoxyphene Acetaminophen Ur Barbiturates, Quant Ur Phencyclidine (PCP) Urine Amphetamine Ur Benzodiazepine, Qnt U Meperidine Screen Urine Cocaine Urine Marijuana (THC) Adltrnts U Creatinine Adulterants Ur pH Adulterants Ur Oxidants Ur Adulterants Comment Urine Specific [place] Serum Alcohol 12/21/17 12/21/17 12/21/17 18:55 18:55 18:55 WBC RBC Hgb Hct MCV MCH MCHC RDW Plt Count MPV Neut % (Auto) Lymph % (Auto) [place] % (Auto) Eos % (Auto) Baso % (Auto) Absolute Neuts (auto) Absolute Lymphs (auto) Absolute Monos (auto) Absolute Eos (auto) Absolute Basos (auto) Absolute Nucleated RBC Nucleated RBC % INR (Anticoag Therapy) APTT VBG pH VBG pCO2 VBG pO2 VBG HCO3 VBG O2 Saturation VBG Base Excess Sodium Potassium Chloride Carbon Dioxide Anion Gap BUN Creatinine Est GFR ( Amer) Est GFR (Non-Af Amer) BUN/Creatinine Ratio Glucose POC Glucose (mg/dL) Lactic Acid 0.8 Calcium Ionized Calcium Phosphorus Magnesium 1.9 Total Bilirubin AST ALT Alkaline Phosphatase Ammonia 40 Total Creatine Kinase 33 CK-MB (CK-2) 2.2 Troponin I 0.01 C-Reactive Protein 3.45 B-Natriuretic Peptide 69 Total Protein Albumin Globulin Albumin/Globulin Ratio Lipase 35 TSH 1.60 Urine Color Urine Appearance Urine pH Ur Specific [place] Urine Protein Urine Ketones Urine Blood Urine Nitrate Urine Bilirubin Urine Urobilinogen Ur Leukocyte Esterase Ur Random Sodium Urine Glucose U K-Qvklpttgm-Atfjdjaoi Urine Noroxymorphone Ur Opiates Note U Normeperidine Screen Ur Codeine Screen Urine Dihydrocodeine U Xlvdclz-4-y-Glucuron Ur Buprenorphine Scrn Ur Norbuprenorphine U Norbuprenorph Glucur Ur Morphine Screen U Zrhlvami-5-l-Glucuron Ur 6-Monoacetylmorphine Ur Hydrocodone Screen Ur Norhydrocodone Ur Oxycodone Screen Ur Noroxycodone Comment Urine Oxymorphone U Fzalfg-5-R-Glucuron Ur EDDP (Meth Metab) Urine Methadone Screen U Hydromorphone Screen U Cuyowdvgoukxb-5-z-Glucur Urine Naloxone U Zbehahwi-1-h-Glucur Urine Fentanyl Screen Ur Norfentanyl Screen Urine Tapentadol U Sqbwuxgnmk-q-Mbgrgg Urine Tramadol Sreen U O-eyravhebi-Usjpqprm Ur Propoxyphene Screen Ur Norpropoxyphene Acetaminophen < 15 Ur Barbiturates, Quant Ur Phencyclidine (PCP) Urine Amphetamine Ur Benzodiazepine, Qnt U Meperidine Screen Urine Cocaine Urine Marijuana (THC) Adltrnts U Creatinine Adulterants Ur pH Adulterants Ur Oxidants Ur Adulterants Comment Urine Specific [place] Serum Alcohol < 10 12/21/17 12/21/17 12/21/17 19:10 19:45 23:29 WBC RBC Hgb Hct MCV MCH MCHC RDW Plt Count MPV Neut % (Auto) Lymph % (Auto) [place] % (Auto) Eos % (Auto) Baso % (Auto) Absolute Neuts (auto) Absolute Lymphs (auto) Absolute Monos (auto) Absolute Eos (auto) Absolute Basos (auto) Absolute Nucleated RBC Nucleated RBC % INR (Anticoag Therapy) APTT VBG pH 7.35 VBG pCO2 37 L VBG pO2 57 H VBG HCO3 21.1 L VBG O2 Saturation 92.5 H VBG Base Excess -4.7 L Sodium Potassium Chloride Carbon Dioxide Anion Gap BUN Creatinine Est GFR ( Amer) Est GFR (Non-Af Amer) BUN/Creatinine Ratio Glucose POC Glucose (mg/dL) 141 H Lactic Acid Calcium Ionized Calcium Phosphorus Magnesium Total Bilirubin AST ALT Alkaline Phosphatase Ammonia Total Creatine Kinase CK-MB (CK-2) Troponin I C-Reactive Protein B-Natriuretic Peptide Total Protein Albumin Globulin Albumin/Globulin Ratio Lipase TSH Urine Color Urine Appearance Urine pH Ur Specific [place] Urine Protein Urine Ketones Urine Blood Urine Nitrate Urine Bilirubin Urine Urobilinogen Ur Leukocyte Esterase Ur Random Sodium 148 Urine Glucose U A-Wclycyccs-Bpjshvwor Urine Noroxymorphone Ur Opiates Note U Normeperidine Screen Ur Codeine Screen Urine Dihydrocodeine U Ytdexxj-0-g-Glucuron Ur Buprenorphine Scrn Ur Norbuprenorphine U Norbuprenorph Glucur Ur Morphine Screen U Lsbsrnsj-6-i-Glucuron Ur 6-Monoacetylmorphine Ur Hydrocodone Screen Ur Norhydrocodone Ur Oxycodone Screen Ur Noroxycodone Comment Urine Oxymorphone U Oqwsvx-4-G-Glucuron Ur EDDP (Meth Metab) Urine Methadone Screen U Hydromorphone Screen U Ayzyabqzdufqu-1-f-Glucur Urine Naloxone U Brrsgndi-7-b-Glucur Urine Fentanyl Screen Ur Norfentanyl Screen Urine Tapentadol U Cjromuelxq-z-Pjniwv Urine Tramadol Sreen U N-hmpbxstwj-Aphgbmjn Ur Propoxyphene Screen Ur Norpropoxyphene Acetaminophen Ur Barbiturates, Quant Ur Phencyclidine (PCP) Urine Amphetamine Ur Benzodiazepine, Qnt U Meperidine Screen Urine Cocaine Urine Marijuana (THC) Adltrnts U Creatinine Adulterants Ur pH Adulterants Ur Oxidants Ur Adulterants Comment Urine Specific [place] Serum Alcohol 12/21/17 12/22/17 12/22/17 23:29 04:19 04:19 WBC 6.8 RBC 4.42 Hgb 12.0 Hct 36 MCV 82 MCH 27 MCHC 33 RDW 15 Plt Count 172 MPV 8.7 Neut % (Auto) 71.7 Lymph % (Auto) 13.8 L [place] % (Auto) 13.3 H Eos % (Auto) 0.6 Baso % (Auto) 0.6 Absolute Neuts (auto) 4.9 Absolute Lymphs (auto) 0.9 L Absolute Monos (auto) 0.9 H Absolute Eos (auto) 0 Absolute Basos (auto) 0 Absolute Nucleated RBC 0 Nucleated RBC % 0 INR (Anticoag Therapy) APTT VBG pH VBG pCO2 VBG pO2 VBG HCO3 VBG O2 Saturation VBG Base Excess Sodium 142 Potassium 3.2 L Chloride 111 Carbon Dioxide 23 Anion Gap 8 BUN 15 Creatinine 0.88 Est GFR ( Amer) 79.7 Est GFR (Non-Af Amer) 62.0 BUN/Creatinine Ratio 17.0 Glucose 139 H POC Glucose (mg/dL) Lactic Acid Calcium 8.2 L Ionized Calcium Phosphorus Magnesium 1.9 Total Bilirubin AST ALT Alkaline Phosphatase Ammonia Total Creatine Kinase CK-MB (CK-2) Troponin I C-Reactive Protein B-Natriuretic Peptide Total Protein Albumin Globulin Albumin/Globulin Ratio Lipase TSH Urine Color Urine Appearance Urine pH Ur Specific [place] Urine Protein Urine Ketones Urine Blood Urine Nitrate Urine Bilirubin Urine Urobilinogen Ur Leukocyte Esterase Ur Random Sodium Urine Glucose U A-Atzurdczk-Yosugxgik Not detected Urine Noroxymorphone Not detected Ur Opiates Note See comment U Normeperidine Screen Not detected Ur Codeine Screen Not detected Urine Dihydrocodeine Not detected U Issldyx-9-a-Glucuron Not detected Ur Buprenorphine Scrn Not detected Ur Norbuprenorphine Not detected U Norbuprenorph Glucur Not detected Ur Morphine Screen Not detected U Czulodzi-9-w-Glucuron Not detected Ur 6-Monoacetylmorphine Not detected Ur Hydrocodone Screen Not detected Ur Norhydrocodone Not detected Ur Oxycodone Screen Not detected Ur Noroxycodone Comment Not detected Urine Oxymorphone Not detected U Khttps-6-G-Glucuron Not detected Ur EDDP (Meth Metab) Not detected Urine Methadone Screen Not detected U Hydromorphone Screen Not detected U Vncovgofftcxo-4-v-Glucur Not detected Urine Naloxone Not detected U Jeehllfr-3-y-Glucur Not detected Urine Fentanyl Screen Not detected Ur Norfentanyl Screen Not detected Urine Tapentadol Not detected U Spyhkrhmjx-u-Bdelnb Not detected Urine Tramadol Sreen Not detected U V-waylskxqe-Vravpapc Not detected Ur Propoxyphene Screen Not detected Ur Norpropoxyphene Not detected Acetaminophen Ur Barbiturates, Quant Negative Ur Phencyclidine (PCP) Negative Urine Amphetamine Negative Ur Benzodiazepine, Qnt Negative U Meperidine Screen Not detected Urine Cocaine Negative Urine Marijuana (THC) Negative Adltrnts U Creatinine 41.8 Adulterants Ur pH 5.5 Adulterants Ur Oxidants Negative Ur Adulterants Comment Normal Urine Specific [place] 1.015 Serum Alcohol 12/22/17 12/23/17 12/23/17 10:23 04:22 04:22 WBC 4.2 RBC 4.35 Hgb 12.3 Hct 36 MCV 82 MCH 28 MCHC 35 RDW 15 Plt Count 151 MPV 9.2 Neut % (Auto) Lymph % (Auto) [place] % (Auto) Eos % (Auto) Baso % (Auto) Absolute Neuts (auto) Absolute Lymphs (auto) Absolute Monos (auto) Absolute Eos (auto) Absolute Basos (auto) Absolute Nucleated RBC Nucleated RBC % INR (Anticoag Therapy) APTT VBG pH VBG pCO2 VBG pO2 VBG HCO3 VBG O2 Saturation VBG Base Excess Sodium 140 Potassium 3.7 Chloride 111 Carbon Dioxide 23 Anion Gap 6 BUN 10 Creatinine 0.68 Est GFR ( Amer) 107.3 Est GFR (Non-Af Amer) 83.5 BUN/Creatinine Ratio 14.7 Glucose 98 POC Glucose (mg/dL) Lactic Acid Calcium 8.3 L Ionized Calcium 4.54 L Phosphorus 2.4 L Magnesium 1.8 L Total Bilirubin 0.30 AST 11 L ALT 7 Alkaline Phosphatase 59 Ammonia Total Creatine Kinase CK-MB (CK-2) Troponin I C-Reactive Protein B-Natriuretic Peptide Total Protein 5.5 L Albumin 3.0 L Globulin 2.5 Albumin/Globulin Ratio 1.2 Lipase TSH Urine Color Urine Appearance Urine pH Ur Specific [place] Urine Protein Urine Ketones Urine Blood Urine Nitrate Urine Bilirubin Urine Urobilinogen Ur Leukocyte Esterase Ur Random Sodium Urine Glucose U H-Nhifftqmy-Vkoxgimmr Urine Noroxymorphone Ur Opiates Note U Normeperidine Screen Ur Codeine Screen Urine Dihydrocodeine U Gaiyqly-5-s-Glucuron Ur Buprenorphine Scrn Ur Norbuprenorphine U Norbuprenorph Glucur Ur Morphine Screen U Ebvycyll-0-v-Glucuron Ur 6-Monoacetylmorphine Ur Hydrocodone Screen Ur Norhydrocodone Ur Oxycodone Screen Ur Noroxycodone Comment Urine Oxymorphone U Xafzvd-9-X-Glucuron Ur EDDP (Meth Metab) Urine Methadone Screen U Hydromorphone Screen U Urkaogcjphhsg-3-a-Glucur Urine Naloxone U Njeuuacw-3-n-Glucur Urine Fentanyl Screen Ur Norfentanyl Screen Urine Tapentadol U Phrhsvpqrg-q-Nxnwmb Urine Tramadol Sreen U M-wsjzskzjk-Smdxtbll Ur Propoxyphene Screen Ur Norpropoxyphene Acetaminophen Ur Barbiturates, Quant Ur Phencyclidine (PCP) Urine Amphetamine Ur Benzodiazepine, Qnt U Meperidine Screen Urine Cocaine Urine Marijuana (THC) Adltrnts U Creatinine Adulterants Ur pH Adulterants Ur Oxidants Ur Adulterants Comment Urine Specific [place] Serum Alcohol Exam Appearance: Thin Framed Hygiene: Normal Grooming: Fairly Well Kept Psychomotor Activities: Abnormal-Decreased Exhibits Abnormal Movement: No Attitude and Relatedness: Cooperative Eye Contact: Good - Speech Quality: Unpressured Latencies: Normal Quantity: Appropriate Patient's Decription of Mood: "Good" Observed Affect: Good Affect Consistent with: Euthymia Patient's Thought Process: Circumstantial Thought Content: Yes Paranoid Ideation, No Passive Wish, No Suicidal Planning, No Homicidal Ideation Experiencing Hallucinations: Yes Type of Hallucinations: Visual: No, Auditory: Yes, Command: No Level of Consciousness: Alert Orientation: Yes Intact, Yes Orientated to Person, No Orientated to Time, No Orientated to Place Impulse Control: Poor Insight and Judgement: Impaired Impression - Impression Clinical Impression: 77 y.o. 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 Health proxy reports that the patient's memory and cognitive functioning have been steadily declining for the past 5 years and she does not appear to be able to live independently. Inpatient DSM-V Dx: R41.9 Merits Inpatient Hospitalization: No Problem List - MHU Problems Type of Problem: Attitude and Relatedness Status of Problem: Active Plan - Treatment Plan Treatment Plan: We have started a trial of quetiapine 50mg PO qhs, which she appears to be tolerating well. We will increase this to 75mg to try to reduce the force of the delusions. The patient does not have capacity to make informed medical decisions related to placement. She would benefit from placement in a rehab or SNF setting. Psychiatry will continue to follow. Continued Medication Management: Start Medication Medications: Current Medications Acetaminophen (Tylenol Tab*) 650 mg PO Q6H PRN PRN Reason: FEVER/PAIN Last Admin: 12/25/17 17:42 Dose: 650 mg Cyanocobalamin (Vitamin B12 Tab*) 1,000 mcg PO DAILY [facility] Last Admin: 12/27/17 10:15 Dose: 1,000 mcg
--- NOTE | 2017-12-27 16:31 | PN ---
Subjective Date of Service: 12/27/17 Interval History: Pt seen and examined. Meds and labs reviewed. Spoke with Nephew and uncle at bedside, when pt narrates that a big man possibly a nurse last night was stepping on her diapers and/or panties right before they are placed on her. Family at bedside confirms that this is likely part of her delusions. ROS: Denied MOSER/dizziness, F/C, N/V, CP, SOB, increased cough, sputum production , abd pain, diarrhea, constipation, dysuria, myalgias, arthralgias, throat pain , and new skin lesions. The rest of the 14 point ROS are unremarkable. PHYSICAL EXAM: GEN APPEARANCE: Awake, not in acute distress, oriented x 3 HEENT: NC/AT, PERRLA, moist oral mucosa, (-) throat erythema NECK: Soft, supple, (-) cervical LAD, (-)JVD HEART: S1S2 WNL, RRR, No MRG CHEST: CTA, BL, GAE, No W/R/R ABD: Soft, ND/NT, NABS 4x Q EXT: No C/C/E SKIN: Warm to touch PSYCH: No active psychosis, hallucinations, depression, SI/HI Objective Active Medications: Acetaminophen (Tylenol Tab*) 650 mg PO Q6H PRN PRN Reason: FEVER/PAIN Last Admin: 12/25/17 17:42 Dose: 650 mg Cyanocobalamin (Vitamin B12 Tab*) 1,000 mcg PO DAILY [facility] Last Admin: 12/27/17 10:15 Dose: 1,000 mcg Quetiapine Fumarate (Seroquel Tab*) 75 mg PO BEDTIME [facility] Vital Signs - 8 hr 12/27/17 11:33 Temperature 99.2 F Pulse Rate 95 Respiratory 16 Rate Blood Pressure 152/63 (mmHg) O2 Sat by Pulse 100 Oximetry Oxygen Devices in Use Now: None Result Diagrams: 12/23/17 04:22 12/23/17 04:22 Additional Lab and Data: Lab Results 12/21/17 12/21/17 12/21/17 Range/Units 18:55 18:55 18:55 WBC 4.7 (3.5-10.8) 10^3/ul RBC 4.27 (4.00-5.40) 10^6/ul Hgb 11.8 L (12.0-16.0) g/dl Hct 35 (35-47) % MCV 81 (80-97) fL MCH 28 (27-31) pg MCHC 34 (31-36) g/dl RDW 14 (10.5-15) % Plt Count 185 (150-450) 10^3/ul MPV 8.4 (7.4-10.4) um3 Neut % (Auto) 68.9 (38-83) % Lymph % (Auto) 15.1 L (25-47) % [place] % (Auto) 12.2 H (0-7) % Eos % (Auto) 2.5 (0-6) % Baso % (Auto) 1.3 (0-2) % Absolute Neuts (auto) 3.2 (1.5-7.7) 10^3/ul Absolute Lymphs (auto) 0.7 L (1.0-4.8) 10^3/ul Absolute Monos (auto) 0.6 (0-0.8) 10^3/ul Absolute Eos (auto) 0.1 (0-0.6) 10^3/ul Absolute Basos (auto) 0.1 (0-0.2) 10^3/ul Absolute Nucleated RBC 0 10^3/ul Nucleated RBC % 0 INR (Anticoag Therapy) 1.05 H (0.77-1.02) APTT 27.9 (26.0-36.3) seconds VBG pH (7.33-7.43) VBG pCO2 (41-51) mmHg VBG pO2 (35-45) mmHg VBG HCO3 (24-28) mmol/L VBG O2 Saturation (70-80) % VBG Base Excess (0-4) POC Glucose (mg/dL) (70-100) mg/dL Lactic Acid (0.5-2.0) mmol/L Magnesium (1.9-2.7) mg/dL Ammonia (16-53) mcmol/L Total Creatine Kinase (10-223) U/L CK-MB (CK-2) (0.6-6.3) ng/mL Troponin I (<0.04) ng/mL C-Reactive Protein (< 5.00) mg/L B-Natriuretic Peptide ( - 100) pg/mL Lipase (11.0-82.0) U/L TSH (0.34-5.60) mcIU/mL Urine Color Yellow Urine Appearance Clear Urine pH 5.0 (5-9) Ur Specific [place] 1.014 (1.010-1.030) Urine Protein Negative (Negative) Urine Ketones Trace A (Negative) Urine Blood Negative (Negative) Urine Nitrate Negative (Negative) Urine Bilirubin Negative (Negative) Urine Urobilinogen Negative (Negative) Ur Leukocyte Esterase Negative (Negative) Urine Glucose Negative (Negative) Acetaminophen mcg/mL Serum Alcohol (<10) mg/dL 12/21/17 12/21/17 12/21/17 Range/Units 18:55 18:55 18:55 WBC (3.5-10.8) 10^3/ul RBC (4.00-5.40) 10^6/ul Hgb (12.0-16.0) g/dl Hct (35-47) % MCV (80-97) fL MCH (27-31) pg MCHC (31-36) g/dl RDW (10.5-15) % Plt Count (150-450) 10^3/ul MPV (7.4-10.4) um3 Neut % (Auto) (38-83) % Lymph % (Auto) (25-47) % [place] % (Auto) (0-7) % Eos % (Auto) (0-6) % Baso % (Auto) (0-2) % Absolute Neuts (auto) (1.5-7.7) 10^3/ul Absolute Lymphs (auto) (1.0-4.8) 10^3/ul Absolute Monos (auto) (0-0.8) 10^3/ul Absolute Eos (auto) (0-0.6) 10^3/ul Absolute Basos (auto) (0-0.2) 10^3/ul Absolute Nucleated RBC 10^3/ul Nucleated RBC % INR (Anticoag Therapy) (0.77-1.02) APTT (26.0-36.3) seconds VBG pH (7.33-7.43) VBG pCO2 (41-51) mmHg VBG pO2 (35-45) mmHg VBG HCO3 (24-28) mmol/L VBG O2 Saturation (70-80) % VBG Base Excess (0-4) POC Glucose (mg/dL) (70-100) mg/dL Lactic Acid 0.8 (0.5-2.0) mmol/L Magnesium 1.9 (1.9-2.7) mg/dL Ammonia 40 (16-53) mcmol/L Total Creatine Kinase 33 (10-223) U/L CK-MB (CK-2) 2.2 (0.6-6.3) ng/mL Troponin I 0.01 (<0.04) ng/mL C-Reactive Protein 3.45 (< 5.00) mg/L B-Natriuretic Peptide 69 ( - 100) pg/mL Lipase 35 (11.0-82.0) U/L TSH 1.60 (0.34-5.60) mcIU/mL Urine Color Urine Appearance Urine pH (5-9) Ur Specific [place] (1.010-1.030) Urine Protein (Negative) Urine Ketones (Negative) Urine Blood (Negative) Urine Nitrate (Negative) Urine Bilirubin (Negative) Urine Urobilinogen (Negative) Ur Leukocyte Esterase (Negative) Urine Glucose (Negative) Acetaminophen < 15 mcg/mL Serum Alcohol < 10 (<10) mg/dL 12/21/17 12/21/17 Range/Units 19:10 19:45 WBC (3.5-10.8) 10^3/ul RBC (4.00-5.40) 10^6/ul Hgb (12.0-16.0) g/dl Hct (35-47) % MCV (80-97) fL MCH (27-31) pg MCHC (31-36) g/dl RDW (10.5-15) % Plt Count (150-450) 10^3/ul MPV (7.4-10.4) um3 Neut % (Auto) (38-83) % Lymph % (Auto) (25-47) % [place] % (Auto) (0-7) % Eos % (Auto) (0-6) % Baso % (Auto) (0-2) % Absolute Neuts (auto) (1.5-7.7) 10^3/ul Absolute Lymphs (auto) (1.0-4.8) 10^3/ul Absolute Monos (auto) (0-0.8) 10^3/ul Absolute Eos (auto) (0-0.6) 10^3/ul Absolute Basos (auto) (0-0.2) 10^3/ul Absolute Nucleated RBC 10^3/ul Nucleated RBC % INR (Anticoag Therapy) (0.77-1.02) APTT (26.0-36.3) seconds VBG pH 7.35 (7.33-7.43) VBG pCO2 37 L (41-51) mmHg VBG pO2 57 H (35-45) mmHg VBG HCO3 21.1 L (24-28) mmol/L VBG O2 Saturation 92.5 H (70-80) % VBG Base Excess -4.7 L (0-4) POC Glucose (mg/dL) 141 H (70-100) mg/dL Lactic Acid (0.5-2.0) mmol/L Magnesium (1.9-2.7) mg/dL Ammonia (16-53) mcmol/L Total Creatine Kinase (10-223) U/L CK-MB (CK-2) (0.6-6.3) ng/mL Troponin I (<0.04) ng/mL C-Reactive Protein (< 5.00) mg/L B-Natriuretic Peptide ( - 100) pg/mL Lipase (11.0-82.0) U/L TSH (0.34-5.60) mcIU/mL Urine Color Urine Appearance Urine pH (5-9) Ur Specific [place] (1.010-1.030) Urine Protein (Negative) Urine Ketones (Negative) Urine Blood (Negative) Urine Nitrate (Negative) Urine Bilirubin (Negative) Urine Urobilinogen (Negative) Ur Leukocyte Esterase (Negative) Urine Glucose (Negative) Acetaminophen mcg/mL Serum Alcohol (<10) mg/dL Microbiology and Other Data: Microbiology 12/21/17 19:45 Aerobic Blood Culture - Preliminary Blood Venous No Growth Day 3 Anaerobic Blood Culture - Preliminary No Growth Day 3 12/21/17 19:51 Aerobic Blood Culture - Preliminary Blood Venous No Growth Day 3 Anaerobic Blood Culture - Preliminary No Growth Day 3 Assess/Plan/Problems-Billing Assessment: This is a 77 year old female with no reported medical history that presented to the ER with EMS for dehydration and collapse, with subsequent bizarre behavior 2 /2 dementia. - Patient Problems (1) Syncope and collapse Current Visit: Yes Status: Acute Code(s): R55 - SYNCOPE AND COLLAPSE SNOMED Code(s): 801189359 Comment: - Resolved, likely source was dehydration and/or heat exhaustion -EF of 60-65% on echo with no wall motion abnormalities -Will order carotid dopplers to evaluate for comorbid conditions -Pt not orthostatic -TSH normal -2D-echo: EF =60-65%; No wall motion abnormalities detected -Carotid dopplers show no significant BRIGIDA (2) Dementia with behavioral disturbance Current Visit: Yes Status: Acute Code(s): F03.91 - UNSPECIFIED DEMENTIA WITH BEHAVIORAL DISTURBANCE SNOMED Code(s): 4734101032349 Comment: -Appreciate Dr. Odell F/UQuetiapine being adjusted -Will need to be placed in dementia unit and/or Long Term care on D/C per Dr. Berger (3) Osteoarthritis Current Visit: Yes Status: Acute Code(s): M19.90 - UNSPECIFIED OSTEOARTHRITIS, UNSPECIFIED SITE SNOMED Code(s): 493804024 Comment: - Continue PRN Tylenol (4) DVT prophylaxis Current Visit: Yes Status: Acute Code(s): WPY0303 - SNOMED Code(s): 998229535 Comment: -Heparin D/Cd yesterday given pt is ambulatory Status and Disposition: Discussed extensively with CM in rounds. Patient should go Long Term Care today , as she has no further skilled needs and is not appropriate for SWING status. Pending placement at SNF when accepted. Please refer to notes regarding disposition. Patient is medically stable at this time.
[2017-12-27] MEDS: QUEtiapine TAB* 25 MG PO SCH (20:51)
[2017-12-28 05:48] LABS: ABS Basophils 0 10^3/ul (0-0.2); ABS Eosinophils 0.1 10^3/ul (0-0.6); ABS Lymphocytes 0.8 10^3/ul (1.0-4.8); ABS Monocytes 0.7 10^3/ul (0-0.8); ABS Neutrophils 3.2 10^3/ul (1.5-7.7); ABS Nucleated RBC 0 10^3/ul; Eosinophil % 2.9 % (0-6); Hematocrit 38 % (35-47); Lymphocyte % 15.9 % (25-47); Mean Corpuscular HGB Conc 34 g/dl (31-36); Mean Corpuscular Hemoglobin 28 pg (27-31); Mean Corpuscular Volume 82 fL (80-97); Mean Platelet Volume 9.2 um3 (7.4-10.4); Nucleated Red Blood Cells % 0; Platelet Count 194 10^3/ul (150-450); Red Blood Count 4.68 10^6/ul (4.00-5.40); Red Cell Distribution Width 14 % (10.5-15); White Blood Count 4.8 10^3/ul (3.5-10.8)
[2017-12-28 06:08] LABS: EGFR Non-African American 83.5 (>60)
[2017-12-28] MEDS: Cyanocobalamin TAB* 500 MCG PO SCH ×2 (08:49→09:05)
--- NOTE | 2017-12-28 14:19 | PN ---
Subjective Date of Service: 12/28/17 Interval History: No physical c/o. She has many old c/o about her care in the past and her neighbors at home. Objective Active Medications: Acetaminophen (Tylenol Tab*) 650 mg PO Q6H PRN PRN Reason: FEVER/PAIN Last Admin: 12/25/17 17:42 Dose: 650 mg Cyanocobalamin (Vitamin B12 Tab*) 1,000 mcg PO DAILY [facility] Last Admin: 12/28/17 09:05 Dose: 1,000 mcg Quetiapine Fumarate (Seroquel Tab*) 75 mg PO BEDTIME JESSE Last Admin: 12/27/17 20:51 Dose: 75 mg Vital Signs - 8 hr 12/28/17 12/28/17 07:52 07:54 Temperature 97.9 F Pulse Rate 99 Respiratory 16 16 Rate Blood Pressure 146/81 (mmHg) O2 Sat by Pulse 100 Oximetry Oxygen Devices in Use Now: None Appearance: Alert, sitting up in bed. In good spirits. Looks comfortable. Eyes: No Scleral Icterus Extremities: No Edema, No Clubbing, Cyanosis Skin: No Rash or Ulcers, No Nodules or Sclerosis, - Neurological: Alert and Oriented x 3, NL Sensation Result Diagrams: 12/28/17 05:10 12/28/17 05:10 Additional Lab and Data: Lab Results 12/21/17 12/21/17 12/21/17 Range/Units 18:55 18:55 18:55 WBC 4.7 (3.5-10.8) 10^3/ul RBC 4.27 (4.00-5.40) 10^6/ul Hgb 11.8 L (12.0-16.0) g/dl Hct 35 (35-47) % MCV 81 (80-97) fL MCH 28 (27-31) pg MCHC 34 (31-36) g/dl RDW 14 (10.5-15) % Plt Count 185 (150-450) 10^3/ul MPV 8.4 (7.4-10.4) um3 Neut % (Auto) 68.9 (38-83) % Lymph % (Auto) 15.1 L (25-47) % Bartholomew % (Auto) 12.2 H (0-7) % Eos % (Auto) 2.5 (0-6) % Baso % (Auto) 1.3 (0-2) % Absolute Neuts (auto) 3.2 (1.5-7.7) 10^3/ul Absolute Lymphs (auto) 0.7 L (1.0-4.8) 10^3/ul Absolute Monos (auto) 0.6 (0-0.8) 10^3/ul Absolute Eos (auto) 0.1 (0-0.6) 10^3/ul Absolute Basos (auto) 0.1 (0-0.2) 10^3/ul Absolute Nucleated RBC 0 10^3/ul Nucleated RBC % 0 INR (Anticoag Therapy) 1.05 H (0.77-1.02) APTT 27.9 (26.0-36.3) seconds VBG pH (7.33-7.43) VBG pCO2 (41-51) mmHg VBG pO2 (35-45) mmHg VBG HCO3 (24-28) mmol/L VBG O2 Saturation (70-80) % VBG Base Excess (0-4) POC Glucose (mg/dL) (70-100) mg/dL Lactic Acid (0.5-2.0) mmol/L Magnesium (1.9-2.7) mg/dL Ammonia (16-53) mcmol/L Total Creatine Kinase (10-223) U/L CK-MB (CK-2) (0.6-6.3) ng/mL Troponin I (<0.04) ng/mL C-Reactive Protein (< 5.00) mg/L B-Natriuretic Peptide ( - 100) pg/mL Lipase (11.0-82.0) U/L TSH (0.34-5.60) mcIU/mL Urine Color Yellow Urine Appearance Clear Urine pH 5.0 (5-9) Ur Specific [place] 1.014 (1.010-1.030) Urine Protein Negative (Negative) Urine Ketones Trace A (Negative) Urine Blood Negative (Negative) Urine Nitrate Negative (Negative) Urine Bilirubin Negative (Negative) Urine Urobilinogen Negative (Negative) Ur Leukocyte Esterase Negative (Negative) Urine Glucose Negative (Negative) Acetaminophen mcg/mL Serum Alcohol (<10) mg/dL 12/21/17 12/21/17 12/21/17 Range/Units 18:55 18:55 18:55 WBC (3.5-10.8) 10^3/ul RBC (4.00-5.40) 10^6/ul Hgb (12.0-16.0) g/dl Hct (35-47) % MCV (80-97) fL MCH (27-31) pg MCHC (31-36) g/dl RDW (10.5-15) % Plt Count (150-450) 10^3/ul MPV (7.4-10.4) um3 Neut % (Auto) (38-83) % Lymph % (Auto) (25-47) % Bartholomew % (Auto) (0-7) % Eos % (Auto) (0-6) % Baso % (Auto) (0-2) % Absolute Neuts (auto) (1.5-7.7) 10^3/ul Absolute Lymphs (auto) (1.0-4.8) 10^3/ul Absolute Monos (auto) (0-0.8) 10^3/ul Absolute Eos (auto) (0-0.6) 10^3/ul Absolute Basos (auto) (0-0.2) 10^3/ul Absolute Nucleated RBC 10^3/ul Nucleated RBC % INR (Anticoag Therapy) (0.77-1.02) APTT (26.0-36.3) seconds VBG pH (7.33-7.43) VBG pCO2 (41-51) mmHg VBG pO2 (35-45) mmHg VBG HCO3 (24-28) mmol/L VBG O2 Saturation (70-80) % VBG Base Excess (0-4) POC Glucose (mg/dL) (70-100) mg/dL Lactic Acid 0.8 (0.5-2.0) mmol/L Magnesium 1.9 (1.9-2.7) mg/dL Ammonia 40 (16-53) mcmol/L Total Creatine Kinase 33 (10-223) U/L CK-MB (CK-2) 2.2 (0.6-6.3) ng/mL Troponin I 0.01 (<0.04) ng/mL C-Reactive Protein 3.45 (< 5.00) mg/L B-Natriuretic Peptide 69 ( - 100) pg/mL Lipase 35 (11.0-82.0) U/L TSH 1.60 (0.34-5.60) mcIU/mL Urine Color Urine Appearance Urine pH (5-9) Ur Specific [place] (1.010-1.030) Urine Protein (Negative) Urine Ketones (Negative) Urine Blood (Negative) Urine Nitrate (Negative) Urine Bilirubin (Negative) Urine Urobilinogen (Negative) Ur Leukocyte Esterase (Negative) Urine Glucose (Negative) Acetaminophen < 15 mcg/mL Serum Alcohol < 10 (<10) mg/dL 12/21/17 12/21/17 Range/Units 19:10 19:45 WBC (3.5-10.8) 10^3/ul RBC (4.00-5.40) 10^6/ul Hgb (12.0-16.0) g/dl Hct (35-47) % MCV (80-97) fL MCH (27-31) pg MCHC (31-36) g/dl RDW (10.5-15) % Plt Count (150-450) 10^3/ul MPV (7.4-10.4) um3 Neut % (Auto) (38-83) % Lymph % (Auto) (25-47) % Bartholomew % (Auto) (0-7) % Eos % (Auto) (0-6) % Baso % (Auto) (0-2) % Absolute Neuts (auto) (1.5-7.7) 10^3/ul Absolute Lymphs (auto) (1.0-4.8) 10^3/ul Absolute Monos (auto) (0-0.8) 10^3/ul Absolute Eos (auto) (0-0.6) 10^3/ul Absolute Basos (auto) (0-0.2) 10^3/ul Absolute Nucleated RBC 10^3/ul Nucleated RBC % INR (Anticoag Therapy) (0.77-1.02) APTT (26.0-36.3) seconds VBG pH 7.35 (7.33-7.43) VBG pCO2 37 L (41-51) mmHg VBG pO2 57 H (35-45) mmHg VBG HCO3 21.1 L (24-28) mmol/L VBG O2 Saturation 92.5 H (70-80) % VBG Base Excess -4.7 L (0-4) POC Glucose (mg/dL) 141 H (70-100) mg/dL Lactic Acid (0.5-2.0) mmol/L Magnesium (1.9-2.7) mg/dL Ammonia (16-53) mcmol/L Total Creatine Kinase (10-223) U/L CK-MB (CK-2) (0.6-6.3) ng/mL Troponin I (<0.04) ng/mL C-Reactive Protein (< 5.00) mg/L B-Natriuretic Peptide ( - 100) pg/mL Lipase (11.0-82.0) U/L TSH (0.34-5.60) mcIU/mL Urine Color Urine Appearance Urine pH (5-9) Ur Specific [place] (1.010-1.030) Urine Protein (Negative) Urine Ketones (Negative) Urine Blood (Negative) Urine Nitrate (Negative) Urine Bilirubin (Negative) Urine Urobilinogen (Negative) Ur Leukocyte Esterase (Negative) Urine Glucose (Negative) Acetaminophen mcg/mL Serum Alcohol (<10) mg/dL Microbiology and Other Data: Microbiology 12/21/17 19:45 Aerobic Blood Culture - Preliminary Blood Venous No Growth Day 3 Anaerobic Blood Culture - Preliminary No Growth Day 3 12/21/17 19:51 Aerobic Blood Culture - Preliminary Blood Venous No Growth Day 3 Anaerobic Blood Culture - Preliminary No Growth Day 3 Assess/Plan/Problems-Billing Assessment: This is a 77 year old female with no reported medical history that presented to the ER with EMS for dehydration and collapse, with subsequent bizarre behavior 2 /2 dementia. - Patient Problems (1) Dementia with behavioral disturbance Current Visit: Yes Status: Acute Code(s): F03.91 - UNSPECIFIED DEMENTIA WITH BEHAVIORAL DISTURBANCE SNOMED Code(s): 3265770679464 Comment: -Appreciate Dr. Odell F/U Improved, but still yells and is confused at times. -Will need to be placed in dementia unit and/or Senior Living care on D/C per Dr. Berger (2) Osteoarthritis Current Visit: Yes Status: Acute Code(s): M19.90 - UNSPECIFIED OSTEOARTHRITIS, UNSPECIFIED SITE SNOMED Code(s): 327625970 Comment: - Continue PRN Tylenol Status and Disposition: Discussed extensively with CM in rounds. Patient should go Senior Living Care today , as she has no further skilled needs and is not appropriate for SWING status. Pending placement at SNF when accepted. Please refer to notes regarding disposition. Patient is medically stable at this time.
[2017-12-28] MEDS: QUEtiapine TAB* 25 MG PO SCH ×2 (20:44→20:49)
[2017-12-28] MEDS ORDERED: Ziprasidone IM INJ* 20 MG/ML VIAL IM ONE (22:59)
[2017-12-29] MEDS: Cyanocobalamin TAB* 500 MCG PO SCH (09:08)
[2017-12-29] MEDS ORDERED: Hydrocortisone 1% CREAM* 30 GM TUBE TOPICAL SCH (12:00)
--- NOTE | 2017-12-29 15:55 | CONSULT ---
Identification - Patient Identification Reason for Psychiatric Consultation: Incapacitating Symptoms -: Patient is a 77 year old, F admitted on 12/22/17. - MHU Identification Employment Status: Disabled Hx Psychiatric Hospitalization: No History - Objective HPI: Jennifer is seen for follow up by the psychiatric consult service. She again presents as calm and polite, however, as soon as I ask about her troubles at her apartment building leading up to admission, she becomes animated and starts telling me about how her persecutors are sending her messages through the patient remote-control device in her hospital room. "Now don't just dismiss me. They can do things like this to people." She goes on to endorse suspicions about evening staff at the hospital and the pills she is taking. Once redirected off these topics she rapidly becomes sweet and docile again. Lab Results: Laboratory Tests 12/21/17 12/21/17 12/21/17 18:55 18:55 18:55 WBC 4.7 RBC 4.27 Hgb 11.8 L Hct 35 MCV 81 MCH 28 MCHC 34 RDW 14 Plt Count 185 MPV 8.4 Neut % (Auto) 68.9 Lymph % (Auto) 15.1 L [place] % (Auto) 12.2 H Eos % (Auto) 2.5 Baso % (Auto) 1.3 Absolute Neuts (auto) 3.2 Absolute Lymphs (auto) 0.7 L Absolute Monos (auto) 0.6 Absolute Eos (auto) 0.1 Absolute Basos (auto) 0.1 Absolute Nucleated RBC 0 Nucleated RBC % 0 INR (Anticoag Therapy) 1.05 H APTT 27.9 VBG pH VBG pCO2 VBG pO2 VBG HCO3 VBG O2 Saturation VBG Base Excess Sodium Potassium Chloride Carbon Dioxide Anion Gap BUN Creatinine Est GFR ( Amer) Est GFR (Non-Af Amer) BUN/Creatinine Ratio Glucose POC Glucose (mg/dL) Lactic Acid Calcium Ionized Calcium Phosphorus Magnesium Total Bilirubin AST ALT Alkaline Phosphatase Ammonia Total Creatine Kinase CK-MB (CK-2) Troponin I C-Reactive Protein B-Natriuretic Peptide Total Protein Albumin Globulin Albumin/Globulin Ratio Lipase TSH Urine Color Yellow Urine Appearance Clear Urine pH 5.0 Ur Specific [place] 1.014 Urine Protein Negative Urine Ketones Trace A Urine Blood Negative Urine Nitrate Negative Urine Bilirubin Negative Urine Urobilinogen Negative Ur Leukocyte Esterase Negative Ur Random Sodium Urine Glucose Negative U A-Xlghpqpoz-Odmbyhckn Urine Noroxymorphone Ur Opiates Note U Normeperidine Screen Ur Codeine Screen Urine Dihydrocodeine U Vtaipwn-2-i-Glucuron Ur Buprenorphine Scrn Ur Norbuprenorphine U Norbuprenorph Glucur Ur Morphine Screen U Gdrifhdd-2-y-Glucuron Ur 6-Monoacetylmorphine Ur Hydrocodone Screen Ur Norhydrocodone Ur Oxycodone Screen Ur Noroxycodone Comment Urine Oxymorphone U Splegr-6-U-Glucuron Ur EDDP (Meth Metab) Urine Methadone Screen U Hydromorphone Screen U Wstazgyofsjpv-5-g-Glucur Urine Naloxone U Zjvpscnr-3-t-Glucur Urine Fentanyl Screen Ur Norfentanyl Screen Urine Tapentadol U Xwsbdmitdl-a-Bnffor Urine Tramadol Sreen U E-cibzkrtos-Hxsfhmad Ur Propoxyphene Screen Ur Norpropoxyphene Acetaminophen Ur Barbiturates, Quant Ur Phencyclidine (PCP) Urine Amphetamine Ur Benzodiazepine, Qnt U Meperidine Screen Urine Cocaine Urine Marijuana (THC) Adltrnts U Creatinine Adulterants Ur pH Adulterants Ur Oxidants Ur Adulterants Comment Urine Specific [place] Serum Alcohol 12/21/17 12/21/17 12/21/17 18:55 18:55 18:55 WBC RBC Hgb Hct MCV MCH MCHC RDW Plt Count MPV Neut % (Auto) Lymph % (Auto) [place] % (Auto) Eos % (Auto) Baso % (Auto) Absolute Neuts (auto) Absolute Lymphs (auto) Absolute Monos (auto) Absolute Eos (auto) Absolute Basos (auto) Absolute Nucleated RBC Nucleated RBC % INR (Anticoag Therapy) APTT VBG pH VBG pCO2 VBG pO2 VBG HCO3 VBG O2 Saturation VBG Base Excess Sodium Potassium Chloride Carbon Dioxide Anion Gap BUN Creatinine Est GFR ( Amer) Est GFR (Non-Af Amer) BUN/Creatinine Ratio Glucose POC Glucose (mg/dL) Lactic Acid 0.8 Calcium Ionized Calcium Phosphorus Magnesium 1.9 Total Bilirubin AST ALT Alkaline Phosphatase Ammonia 40 Total Creatine Kinase 33 CK-MB (CK-2) 2.2 Troponin I 0.01 C-Reactive Protein 3.45 B-Natriuretic Peptide 69 Total Protein Albumin Globulin Albumin/Globulin Ratio Lipase 35 TSH 1.60 Urine Color Urine Appearance Urine pH Ur Specific [place] Urine Protein Urine Ketones Urine Blood Urine Nitrate Urine Bilirubin Urine Urobilinogen Ur Leukocyte Esterase Ur Random Sodium Urine Glucose U M-Galgrkwtu-Xuwzouqro Urine Noroxymorphone Ur Opiates Note U Normeperidine Screen Ur Codeine Screen Urine Dihydrocodeine U Vbidyqr-0-h-Glucuron Ur Buprenorphine Scrn Ur Norbuprenorphine U Norbuprenorph Glucur Ur Morphine Screen U Fbijfeld-8-o-Glucuron Ur 6-Monoacetylmorphine Ur Hydrocodone Screen Ur Norhydrocodone Ur Oxycodone Screen Ur Noroxycodone Comment Urine Oxymorphone U Mpizfb-9-L-Glucuron Ur EDDP (Meth Metab) Urine Methadone Screen U Hydromorphone Screen U Juhfzxwyeohpn-1-p-Glucur Urine Naloxone U Gycxnklv-9-i-Glucur Urine Fentanyl Screen Ur Norfentanyl Screen Urine Tapentadol U Cffblelaxb-r-Mefpzm Urine Tramadol Sreen U Q-xluzmshbp-Fgcntaxq Ur Propoxyphene Screen Ur Norpropoxyphene Acetaminophen < 15 Ur Barbiturates, Quant Ur Phencyclidine (PCP) Urine Amphetamine Ur Benzodiazepine, Qnt U Meperidine Screen Urine Cocaine Urine Marijuana (THC) Adltrnts U Creatinine Adulterants Ur pH Adulterants Ur Oxidants Ur Adulterants Comment Urine Specific [place] Serum Alcohol < 10 12/21/17 12/21/17 12/21/17 19:10 19:45 23:29 WBC RBC Hgb Hct MCV MCH MCHC RDW Plt Count MPV Neut % (Auto) Lymph % (Auto) [place] % (Auto) Eos % (Auto) Baso % (Auto) Absolute Neuts (auto) Absolute Lymphs (auto) Absolute Monos (auto) Absolute Eos (auto) Absolute Basos (auto) Absolute Nucleated RBC Nucleated RBC % INR (Anticoag Therapy) APTT VBG pH 7.35 VBG pCO2 37 L VBG pO2 57 H VBG HCO3 21.1 L VBG O2 Saturation 92.5 H VBG Base Excess -4.7 L Sodium Potassium Chloride Carbon Dioxide Anion Gap BUN Creatinine Est GFR ( Amer) Est GFR (Non-Af Amer) BUN/Creatinine Ratio Glucose POC Glucose (mg/dL) 141 H Lactic Acid Calcium Ionized Calcium Phosphorus Magnesium Total Bilirubin AST ALT Alkaline Phosphatase Ammonia Total Creatine Kinase CK-MB (CK-2) Troponin I C-Reactive Protein B-Natriuretic Peptide Total Protein Albumin Globulin Albumin/Globulin Ratio Lipase TSH Urine Color Urine Appearance Urine pH Ur Specific [place] Urine Protein Urine Ketones Urine Blood Urine Nitrate Urine Bilirubin Urine Urobilinogen Ur Leukocyte Esterase Ur Random Sodium 148 Urine Glucose U P-Qygijbchz-Ddyvzmaoo Urine Noroxymorphone Ur Opiates Note U Normeperidine Screen Ur Codeine Screen Urine Dihydrocodeine U Jysvfwt-9-k-Glucuron Ur Buprenorphine Scrn Ur Norbuprenorphine U Norbuprenorph Glucur Ur Morphine Screen U Klfnyosu-3-d-Glucuron Ur 6-Monoacetylmorphine Ur Hydrocodone Screen Ur Norhydrocodone Ur Oxycodone Screen Ur Noroxycodone Comment Urine Oxymorphone U Fgmwih-5-S-Glucuron Ur EDDP (Meth Metab) Urine Methadone Screen U Hydromorphone Screen U Fjubmtcnrwhph-5-g-Glucur Urine Naloxone U Pkbstbuc-9-b-Glucur Urine Fentanyl Screen Ur Norfentanyl Screen Urine Tapentadol U Jgvzkuuzej-o-Ndazle Urine Tramadol Sreen U P-dvmvrvcnt-Plqxpzpg Ur Propoxyphene Screen Ur Norpropoxyphene Acetaminophen Ur Barbiturates, Quant Ur Phencyclidine (PCP) Urine Amphetamine Ur Benzodiazepine, Qnt U Meperidine Screen Urine Cocaine Urine Marijuana (THC) Adltrnts U Creatinine Adulterants Ur pH Adulterants Ur Oxidants Ur Adulterants Comment Urine Specific [place] Serum Alcohol 12/21/17 12/22/17 12/22/17 23:29 04:19 04:19 WBC 6.8 RBC 4.42 Hgb 12.0 Hct 36 MCV 82 MCH 27 MCHC 33 RDW 15 Plt Count 172 MPV 8.7 Neut % (Auto) 71.7 Lymph % (Auto) 13.8 L [place] % (Auto) 13.3 H Eos % (Auto) 0.6 Baso % (Auto) 0.6 Absolute Neuts (auto) 4.9 Absolute Lymphs (auto) 0.9 L Absolute Monos (auto) 0.9 H Absolute Eos (auto) 0 Absolute Basos (auto) 0 Absolute Nucleated RBC 0 Nucleated RBC % 0 INR (Anticoag Therapy) APTT VBG pH VBG pCO2 VBG pO2 VBG HCO3 VBG O2 Saturation VBG Base Excess Sodium 142 Potassium 3.2 L Chloride 111 Carbon Dioxide 23 Anion Gap 8 BUN 15 Creatinine 0.88 Est GFR ( Amer) 79.7 Est GFR (Non-Af Amer) 62.0 BUN/Creatinine Ratio 17.0 Glucose 139 H POC Glucose (mg/dL) Lactic Acid Calcium 8.2 L Ionized Calcium Phosphorus Magnesium 1.9 Total Bilirubin AST ALT Alkaline Phosphatase Ammonia Total Creatine Kinase CK-MB (CK-2) Troponin I C-Reactive Protein B-Natriuretic Peptide Total Protein Albumin Globulin Albumin/Globulin Ratio Lipase TSH Urine Color Urine Appearance Urine pH Ur Specific [place] Urine Protein Urine Ketones Urine Blood Urine Nitrate Urine Bilirubin Urine Urobilinogen Ur Leukocyte Esterase Ur Random Sodium Urine Glucose U B-Jwbbqtaid-Zdvqpaqnk Not detected Urine Noroxymorphone Not detected Ur Opiates Note See comment U Normeperidine Screen Not detected Ur Codeine Screen Not detected Urine Dihydrocodeine Not detected U Xkznrep-8-e-Glucuron Not detected Ur Buprenorphine Scrn Not detected Ur Norbuprenorphine Not detected U Norbuprenorph Glucur Not detected Ur Morphine Screen Not detected U Bnfawksj-8-g-Glucuron Not detected Ur 6-Monoacetylmorphine Not detected Ur Hydrocodone Screen Not detected Ur Norhydrocodone Not detected Ur Oxycodone Screen Not detected Ur Noroxycodone Comment Not detected Urine Oxymorphone Not detected U Nugqdh-3-F-Glucuron Not detected Ur EDDP (Meth Metab) Not detected Urine Methadone Screen Not detected U Hydromorphone Screen Not detected U Mwggyzyokvqzw-4-s-Glucur Not detected Urine Naloxone Not detected U Wqgfqucm-8-m-Glucur Not detected Urine Fentanyl Screen Not detected Ur Norfentanyl Screen Not detected Urine Tapentadol Not detected U Yojbgqhsrn-u-Bikqbe Not detected Urine Tramadol Sreen Not detected U Q-laytscpxk-Ddpwvxbl Not detected Ur Propoxyphene Screen Not detected Ur Norpropoxyphene Not detected Acetaminophen Ur Barbiturates, Quant Negative Ur Phencyclidine (PCP) Negative Urine Amphetamine Negative Ur Benzodiazepine, Qnt Negative U Meperidine Screen Not detected Urine Cocaine Negative Urine Marijuana (THC) Negative Adltrnts U Creatinine 41.8 Adulterants Ur pH 5.5 Adulterants Ur Oxidants Negative Ur Adulterants Comment Normal Urine Specific [place] 1.015 Serum Alcohol 12/22/17 12/23/17 12/23/17 10:23 04:22 04:22 WBC 4.2 RBC 4.35 Hgb 12.3 Hct 36 MCV 82 MCH 28 MCHC 35 RDW 15 Plt Count 151 MPV 9.2 Neut % (Auto) Lymph % (Auto) [place] % (Auto) Eos % (Auto) Baso % (Auto) Absolute Neuts (auto) Absolute Lymphs (auto) Absolute Monos (auto) Absolute Eos (auto) Absolute Basos (auto) Absolute Nucleated RBC Nucleated RBC % INR (Anticoag Therapy) APTT VBG pH VBG pCO2 VBG pO2 VBG HCO3 VBG O2 Saturation VBG Base Excess Sodium 140 Potassium 3.7 Chloride 111 Carbon Dioxide 23 Anion Gap 6 BUN 10 Creatinine 0.68 Est GFR ( Amer) 107.3 Est GFR (Non-Af Amer) 83.5 BUN/Creatinine Ratio 14.7 Glucose 98 POC Glucose (mg/dL) Lactic Acid Calcium 8.3 L Ionized Calcium 4.54 L Phosphorus 2.4 L Magnesium 1.8 L Total Bilirubin 0.30 AST 11 L ALT 7 Alkaline Phosphatase 59 Ammonia Total Creatine Kinase CK-MB (CK-2) Troponin I C-Reactive Protein B-Natriuretic Peptide Total Protein 5.5 L Albumin 3.0 L Globulin 2.5 Albumin/Globulin Ratio 1.2 Lipase TSH Urine Color Urine Appearance Urine pH Ur Specific [place] Urine Protein Urine Ketones Urine Blood Urine Nitrate Urine Bilirubin Urine Urobilinogen Ur Leukocyte Esterase Ur Random Sodium Urine Glucose U R-Dltjmqbas-Sexbvbwnh Urine Noroxymorphone Ur Opiates Note U Normeperidine Screen Ur Codeine Screen Urine Dihydrocodeine U Nytbama-8-n-Glucuron Ur Buprenorphine Scrn Ur Norbuprenorphine U Norbuprenorph Glucur Ur Morphine Screen U Tewalciz-5-q-Glucuron Ur 6-Monoacetylmorphine Ur Hydrocodone Screen Ur Norhydrocodone Ur Oxycodone Screen Ur Noroxycodone Comment Urine Oxymorphone U Cvaayb-5-D-Glucuron Ur EDDP (Meth Metab) Urine Methadone Screen U Hydromorphone Screen U Pwzszjxulxeca-0-e-Glucur Urine Naloxone U Mwcoires-8-p-Glucur Urine Fentanyl Screen Ur Norfentanyl Screen Urine Tapentadol U Hmbjfqmpdn-l-Bwksbq Urine Tramadol Sreen U I-mugmshvzg-Aofaabli Ur Propoxyphene Screen Ur Norpropoxyphene Acetaminophen Ur Barbiturates, Quant Ur Phencyclidine (PCP) Urine Amphetamine Ur Benzodiazepine, Qnt U Meperidine Screen Urine Cocaine Urine Marijuana (THC) Adltrnts U Creatinine Adulterants Ur pH Adulterants Ur Oxidants Ur Adulterants Comment Urine Specific [place] Serum Alcohol 12/28/17 12/28/17 05:10 05:10 WBC 4.8 RBC 4.68 Hgb 13.0 Hct 38 MCV 82 MCH 28 MCHC 34 RDW 14 Plt Count 194 MPV 9.2 Neut % (Auto) 66.0 Lymph % (Auto) 15.9 L [place] % (Auto) 14.3 H Eos % (Auto) 2.9 Baso % (Auto) 0.9 Absolute Neuts (auto) 3.2 Absolute Lymphs (auto) 0.8 L Absolute Monos (auto) 0.7 Absolute Eos (auto) 0.1 Absolute Basos (auto) 0 Absolute Nucleated RBC 0 Nucleated RBC % 0 INR (Anticoag Therapy) APTT VBG pH VBG pCO2 VBG pO2 VBG HCO3 VBG O2 Saturation VBG Base Excess Sodium 139 Potassium 3.7 Chloride 105 Carbon Dioxide 28 Anion Gap 6 BUN 14 Creatinine 0.68 Est GFR ( Amer) 101.0 Est GFR (Non-Af Amer) 83.5 BUN/Creatinine Ratio 20.6 H Glucose 110 H POC Glucose (mg/dL) Lactic Acid Calcium 8.8 Ionized Calcium Phosphorus 3.5 Magnesium 2.1 Total Bilirubin AST ALT Alkaline Phosphatase Ammonia Total Creatine Kinase CK-MB (CK-2) Troponin I C-Reactive Protein B-Natriuretic Peptide Total Protein Albumin Globulin Albumin/Globulin Ratio Lipase TSH Urine Color Urine Appearance Urine pH Ur Specific [place] Urine Protein Urine Ketones Urine Blood Urine Nitrate Urine Bilirubin Urine Urobilinogen Ur Leukocyte Esterase Ur Random Sodium Urine Glucose U S-Tjutvjvpq-Aymbwsfwn Urine Noroxymorphone Ur Opiates Note U Normeperidine Screen Ur Codeine Screen Urine Dihydrocodeine U Ouhitjk-9-i-Glucuron Ur Buprenorphine Scrn Ur Norbuprenorphine U Norbuprenorph Glucur Ur Morphine Screen U Ybkaevrl-3-y-Glucuron Ur 6-Monoacetylmorphine Ur Hydrocodone Screen Ur Norhydrocodone Ur Oxycodone Screen Ur Noroxycodone Comment Urine Oxymorphone U Zzgoqm-1-E-Glucuron Ur EDDP (Meth Metab) Urine Methadone Screen U Hydromorphone Screen U Nxareilbrmfvl-6-b-Glucur Urine Naloxone U Tkrocmsf-2-j-Glucur Urine Fentanyl Screen Ur Norfentanyl Screen Urine Tapentadol U Ddnztzwdxp-g-Byuavq Urine Tramadol Sreen U J-vvxahdfhb-Kqvvemaa Ur Propoxyphene Screen Ur Norpropoxyphene Acetaminophen Ur Barbiturates, Quant Ur Phencyclidine (PCP) Urine Amphetamine Ur Benzodiazepine, Qnt U Meperidine Screen Urine Cocaine Urine Marijuana (THC) Adltrnts U Creatinine Adulterants Ur pH Adulterants Ur Oxidants Ur Adulterants Comment Urine Specific [place] Serum Alcohol Exam Appearance: Thin Framed Hygiene: Normal Grooming: Fairly Well Kept Psychomotor Activities: Abnormal-Decreased Exhibits Abnormal Movement: No Attitude and Relatedness: Cooperative Eye Contact: Good - Speech Quality: Unpressured Latencies: Normal Quantity: Appropriate Patient's Decription of Mood: "Good" Observed Affect: Good Affect Consistent with: Euthymia Patient's Thought Process: Circumstantial Thought Content: Yes Paranoid Ideation, No Passive Wish, No Suicidal Planning, No Homicidal Ideation Experiencing Hallucinations: Yes Type of Hallucinations: Visual: No, Auditory: Yes, Command: No Level of Consciousness: Alert Orientation: Yes Intact, Yes Orientated to Person, No Orientated to Time, No Orientated to Place Impulse Control: Poor Insight and Judgement: Impaired Impression - Impression Clinical Impression: 77 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 Health proxy reports that the patient's memory and cognitive functioning have been steadily declining for the past 5 years and she does not appear to be able to live independently. Inpatient DSM-V Dx: R41.9 Merits Inpatient Hospitalization: No Problem List - MHU Problems Type of Problem: Medication Management Status of Problem: Active Plan - Treatment Plan Treatment Plan: We have started a trial of quetiapine 75mg PO qhs, which she appears to be tolerating well. We will increase this to 100mg to try to reduce the force of the delusions. The patient does not have capacity to make informed medical decisions related to placement. She would benefit from placement in a rehab or SNF setting. Psychiatry will continue to follow. Continued Medication Management: Start Medication Medications: Current Medications Acetaminophen (Tylenol Tab*) 650 mg PO Q6H PRN PRN Reason: FEVER/PAIN Last Admin: 12/25/17 17:42 Dose: 650 mg Cyanocobalamin (Vitamin B12 Tab*) 1,000 mcg PO DAILY JESSE Last Admin: 12/29/17 09:08 Dose: Not Given Hydrocortisone (Hytone Cream 1%*) 1 applic TOPICAL BID JESSE Quetiapine Fumarate (Seroquel Tab*) 100 mg PO BEDTIME JESSE
--- NOTE | 2017-12-29 18:03 | PN ---
Subjective Date of Service: 12/29/17 Interval History: Pt seen and examined. Meds and labs reviewed. ROS: Denied MOSER/dizziness, F/C, N/V, CP, SOB, increased cough, sputum production , abd pain, diarrhea, constipation, dysuria, myalgias, arthralgias, throat pain , and new skin lesions. The rest of the 14 point ROS are unremarkable. PHYSICAL EXAM: GEN APPEARANCE: Awake, not in acute distress HEENT: NC/AT, PERRLA, moist oral mucosa, (-) throat erythema NECK: Soft, supple, (-) cervical LAD, (-)JVD HEART: S1S2 WNL, RRR, No MRG CHEST: CTA, BL, GAE, No W/R/R ABD: Soft, ND/NT, NABS 4x Q EXT: No C/C/E SKIN: Warm to touch PSYCH: No active psychosis, hallucinations, depression, SI/HI Objective Active Medications: Acetaminophen (Tylenol Tab*) 650 mg PO Q6H PRN PRN Reason: FEVER/PAIN Last Admin: 12/25/17 17:42 Dose: 650 mg Cyanocobalamin (Vitamin B12 Tab*) 1,000 mcg PO DAILY JESSE Last Admin: 12/29/17 09:08 Dose: Not Given Hydrocortisone (Hytone Cream 1%*) 1 applic TOP[facility] Quetiapine Fumarate (Seroquel Tab*) 100 mg PO BEDTIME [facility] Vital Signs - 8 hr 12/29/17 12/29/17 15:25 15:41 Temperature 98.4 F 98.4 F Pulse Rate 110 110 Respiratory 18 18 Rate Blood Pressure 160/90 160/90 (mmHg) O2 Sat by Pulse 98 98 Oximetry Oxygen Devices in Use Now: None Result Diagrams: 12/28/17 05:10 12/28/17 05:10 Additional Lab and Data: Lab Results 12/21/17 12/21/17 12/21/17 Range/Units 18:55 18:55 18:55 WBC 4.7 (3.5-10.8) 10^3/ul RBC 4.27 (4.00-5.40) 10^6/ul Hgb 11.8 L (12.0-16.0) g/dl Hct 35 (35-47) % MCV 81 (80-97) fL MCH 28 (27-31) pg MCHC 34 (31-36) g/dl RDW 14 (10.5-15) % Plt Count 185 (150-450) 10^3/ul MPV 8.4 (7.4-10.4) um3 Neut % (Auto) 68.9 (38-83) % Lymph % (Auto) 15.1 L (25-47) % [place] % (Auto) 12.2 H (0-7) % Eos % (Auto) 2.5 (0-6) % Baso % (Auto) 1.3 (0-2) % Absolute Neuts (auto) 3.2 (1.5-7.7) 10^3/ul Absolute Lymphs (auto) 0.7 L (1.0-4.8) 10^3/ul Absolute Monos (auto) 0.6 (0-0.8) 10^3/ul Absolute Eos (auto) 0.1 (0-0.6) 10^3/ul Absolute Basos (auto) 0.1 (0-0.2) 10^3/ul Absolute Nucleated RBC 0 10^3/ul Nucleated RBC % 0 INR (Anticoag Therapy) 1.05 H (0.77-1.02) APTT 27.9 (26.0-36.3) seconds VBG pH (7.33-7.43) VBG pCO2 (41-51) mmHg VBG pO2 (35-45) mmHg VBG HCO3 (24-28) mmol/L VBG O2 Saturation (70-80) % VBG Base Excess (0-4) POC Glucose (mg/dL) (70-100) mg/dL Lactic Acid (0.5-2.0) mmol/L Magnesium (1.9-2.7) mg/dL Ammonia (16-53) mcmol/L Total Creatine Kinase (10-223) U/L CK-MB (CK-2) (0.6-6.3) ng/mL Troponin I (<0.04) ng/mL C-Reactive Protein (< 5.00) mg/L B-Natriuretic Peptide ( - 100) pg/mL Lipase (11.0-82.0) U/L TSH (0.34-5.60) mcIU/mL Urine Color Yellow Urine Appearance Clear Urine pH 5.0 (5-9) Ur Specific [place] 1.014 (1.010-1.030) Urine Protein Negative (Negative) Urine Ketones Trace A (Negative) Urine Blood Negative (Negative) Urine Nitrate Negative (Negative) Urine Bilirubin Negative (Negative) Urine Urobilinogen Negative (Negative) Ur Leukocyte Esterase Negative (Negative) Urine Glucose Negative (Negative) Acetaminophen mcg/mL Serum Alcohol (<10) mg/dL 12/21/17 12/21/17 12/21/17 Range/Units 18:55 18:55 18:55 WBC (3.5-10.8) 10^3/ul RBC (4.00-5.40) 10^6/ul Hgb (12.0-16.0) g/dl Hct (35-47) % MCV (80-97) fL MCH (27-31) pg MCHC (31-36) g/dl RDW (10.5-15) % Plt Count (150-450) 10^3/ul MPV (7.4-10.4) um3 Neut % (Auto) (38-83) % Lymph % (Auto) (25-47) % [place] % (Auto) (0-7) % Eos % (Auto) (0-6) % Baso % (Auto) (0-2) % Absolute Neuts (auto) (1.5-7.7) 10^3/ul Absolute Lymphs (auto) (1.0-4.8) 10^3/ul Absolute Monos (auto) (0-0.8) 10^3/ul Absolute Eos (auto) (0-0.6) 10^3/ul Absolute Basos (auto) (0-0.2) 10^3/ul Absolute Nucleated RBC 10^3/ul Nucleated RBC % INR (Anticoag Therapy) (0.77-1.02) APTT (26.0-36.3) seconds VBG pH (7.33-7.43) VBG pCO2 (41-51) mmHg VBG pO2 (35-45) mmHg VBG HCO3 (24-28) mmol/L VBG O2 Saturation (70-80) % VBG Base Excess (0-4) POC Glucose (mg/dL) (70-100) mg/dL Lactic Acid 0.8 (0.5-2.0) mmol/L Magnesium 1.9 (1.9-2.7) mg/dL Ammonia 40 (16-53) mcmol/L Total Creatine Kinase 33 (10-223) U/L CK-MB (CK-2) 2.2 (0.6-6.3) ng/mL Troponin I 0.01 (<0.04) ng/mL C-Reactive Protein 3.45 (< 5.00) mg/L B-Natriuretic Peptide 69 ( - 100) pg/mL Lipase 35 (11.0-82.0) U/L TSH 1.60 (0.34-5.60) mcIU/mL Urine Color Urine Appearance Urine pH (5-9) Ur Specific [place] (1.010-1.030) Urine Protein (Negative) Urine Ketones (Negative) Urine Blood (Negative) Urine Nitrate (Negative) Urine Bilirubin (Negative) Urine Urobilinogen (Negative) Ur Leukocyte Esterase (Negative) Urine Glucose (Negative) Acetaminophen < 15 mcg/mL Serum Alcohol < 10 (<10) mg/dL 12/21/17 12/21/17 Range/Units 19:10 19:45 WBC (3.5-10.8) 10^3/ul RBC (4.00-5.40) 10^6/ul Hgb (12.0-16.0) g/dl Hct (35-47) % MCV (80-97) fL MCH (27-31) pg MCHC (31-36) g/dl RDW (10.5-15) % Plt Count (150-450) 10^3/ul MPV (7.4-10.4) um3 Neut % (Auto) (38-83) % Lymph % (Auto) (25-47) % [place] % (Auto) (0-7) % Eos % (Auto) (0-6) % Baso % (Auto) (0-2) % Absolute Neuts (auto) (1.5-7.7) 10^3/ul Absolute Lymphs (auto) (1.0-4.8) 10^3/ul Absolute Monos (auto) (0-0.8) 10^3/ul Absolute Eos (auto) (0-0.6) 10^3/ul Absolute Basos (auto) (0-0.2) 10^3/ul Absolute Nucleated RBC 10^3/ul Nucleated RBC % INR (Anticoag Therapy) (0.77-1.02) APTT (26.0-36.3) seconds VBG pH 7.35 (7.33-7.43) VBG pCO2 37 L (41-51) mmHg VBG pO2 57 H (35-45) mmHg VBG HCO3 21.1 L (24-28) mmol/L VBG O2 Saturation 92.5 H (70-80) % VBG Base Excess -4.7 L (0-4) POC Glucose (mg/dL) 141 H (70-100) mg/dL Lactic Acid (0.5-2.0) mmol/L Magnesium (1.9-2.7) mg/dL Ammonia (16-53) mcmol/L Total Creatine Kinase (10-223) U/L CK-MB (CK-2) (0.6-6.3) ng/mL Troponin I (<0.04) ng/mL C-Reactive Protein (< 5.00) mg/L B-Natriuretic Peptide ( - 100) pg/mL Lipase (11.0-82.0) U/L TSH (0.34-5.60) mcIU/mL Urine Color Urine Appearance Urine pH (5-9) Ur Specific [place] (1.010-1.030) Urine Protein (Negative) Urine Ketones (Negative) Urine Blood (Negative) Urine Nitrate (Negative) Urine Bilirubin (Negative) Urine Urobilinogen (Negative) Ur Leukocyte Esterase (Negative) Urine Glucose (Negative) Acetaminophen mcg/mL Serum Alcohol (<10) mg/dL Microbiology and Other Data: Microbiology 12/21/17 19:45 Aerobic Blood Culture - Preliminary Blood Venous No Growth Day 3 Anaerobic Blood Culture - Preliminary No Growth Day 3 12/21/17 19:51 Aerobic Blood Culture - Preliminary Blood Venous No Growth Day 3 Anaerobic Blood Culture - Preliminary No Growth Day 3 Assess/Plan/Problems-Billing Assessment: This is a 77 year old female with no reported medical history that presented to the ER with EMS for dehydration and collapse, with subsequent bizarre behavior 2 /2 dementia. - Patient Problems (1) Dementia with behavioral disturbance Current Visit: Yes Status: Acute Code(s): F03.91 - UNSPECIFIED DEMENTIA WITH BEHAVIORAL DISTURBANCE SNOMED Code(s): 5159279063669 Comment: -Appreciate Dr. Odell F/UQuetiapine adjusted to 100 mg PO qHS -Will need to be placed in dementia unit and/or Care Home care on D/C per Dr. Berger; pts nephew getting her financial statements in order to see if she can qualify for Medicaid and currently appealing Medicare (2) Osteoarthritis Current Visit: Yes Status: Acute Code(s): M19.90 - UNSPECIFIED OSTEOARTHRITIS, UNSPECIFIED SITE SNOMED Code(s): 301469135 Comment: - Continue PRN Tylenol (3) Syncope and collapse Current Visit: Yes Status: Acute Code(s): R55 - SYNCOPE AND COLLAPSE SNOMED Code(s): 196101482 Comment: - Resolved, likely source was dehydration and/or heat exhaustion -EF of 60-65% on echo with no wall motion abnormalities -Will order carotid dopplers to evaluate for comorbid conditions -Pt not orthostatic -TSH normal -2D-echo: EF =60-65%; No wall motion abnormalities detected -Carotid dopplers show no significant BRIGIDA (4) DVT prophylaxis Current Visit: Yes Status: Acute Code(s): LCA1058 - SNOMED Code(s): 267559584 Comment: -Ambulate in the room ad libitum Status and Disposition: Pending placement at SNF when accepted. Please refer to SW notes regarding disposition. Patient is medically stable at this time.
[2017-12-29] MEDS ORDERED: QUEtiapine TAB* 100 MG PO SCH (21:00)
[2017-12-29] MEDS: HYDROCORTISONE 1% TOPICAL SCH (22:01)
[2017-12-30 08:30] VITALS: BP 149/76
[2017-12-30] MEDS: HYDROCORTISONE 1% TOPICAL SCH (09:35)
[2017-12-30] MEDS: Cyanocobalamin TAB* 500 MCG PO SCH (09:35)
--- NOTE | 2017-12-30 14:24 | DS ---
CC: Dr. Traylor; Theron Ridleyd; Dr. Cornelio Beal; Pawan Paz; and Dr. Berger DISCHARGE SUMMARY: DATE OF ADMISSION: DATE OF DISCHARGE: 12/30/2017 DISCHARGE DIAGNOSES: 1. Dementia with behavioral disturbance. 2. Osteoarthritis. 3. Syncope and collapse likely secondary to dehydration. DISCHARGE MEDICATIONS: 1. Tylenol 650 p.o. q.6 p.r.n. 2. Cyanocobalamin 1000 mcg p.o. daily. 3. Quetiapine 100 mg p.o. q.h.s. HISTORY OF PRESENT ILLNESS/HOSPITAL COURSE: The patient is a 77-year-old lady with history of eczema and dementia, who does not routinely followup with her medical care and who on 12/21/17 was out walking around shopping at [facility] where bystanders noted that she was wearing a jacket in a 90 degree weather and had a sun hat and an umbrella to protect her from the heat. She stated that she had been drinking a lot of water; however, she was unable to quantify how much and felt like she urinated quite a bit. The patient had been feeling herself except for occasionally feeling some palpitations with exertion, which she said was new to her. Eventually during that same day, she was found down while on her way home. She also has had some delusions that her neighbors were purposely tormenting her by playing loud music and by attempting to break into her apartment at night. She was convinced that they were using ether to steal her life savings. The patient was admitted and was subsequently evaluated for a syncopal workup where an echocardiogram showed an EF of 60% to 65% with no wall motion abnormalities. Carotid Dopplers were found to be essentially normal on examination without any evidence of carotid stenosis. TSH was also found to be normal. Her syncope and collapse is thought to be due to dehydration in the setting of hot environment as well as her noncompliance due to her dementia with behavioral issues. She was also seen by Dr. Berger, our psychiatrist who evaluated her, who agreed that she does have dementia with behavioral issues and it is recommended for her to be placed in the dementia unit/senior care care. She was started on Seroquel and will be discharged on 100 mg subcu q.h.s. as per last evaluation by Dr. Berger. She had been advised to follow up with her PCP and/or facility MD/SPLITTER OPERATOR within 3 days post DC and to take her medications as prescribed. PHYSICAL EXAMINATION: Physical examination shows the most recent vital signs of records with temperature of 97.4 degrees Fahrenheit, heart rate of 91 beats per minutes, 16 per minute respiratory rate, blood pressure of 149/76. General Appearance: The patient is awake, oriented x2, not in acute distress. HEENT: Normocephalic, atraumatic. PERRLA. Extraocular muscles intact. Negative for icterus. Moist oral mucosa. Negative throat erythema. Neck is soft and supple with no cervical lymphadenopathy, no JVD. Heart: S1 and S2 within normal limits. Regular rate and rhythm. No murmurs, rubs, or gallops. Chest: Clear to auscultation bilaterally. Good air entry. No wheezes, rales, or rhonchi. Abdomen is soft, nondistended, and nontender. Normoactive bowel sounds x4 quadrants. Extremities: No cyanosis, clubbing, or edema. Psychiatric : The patient still has some delusions, but no active psychosis, depression, suicidal or homicidal ideation at this time. [id number]/CPS #: [id number] [facility]
== END 2017-12-30 14:00 | DRG 884 ==
LOC: ED 18:42 → MEDTELE 22:40 → OBSVTOIN 12-22 10:47 → MED 12-29 15:10
PROVIDERS: ADMIT Hospitalist; ATTEND Student in an Organized Health Care Education/Training Program
DX: F03.91 Unspecified dementia, unspecified severity, with behavioral disturbance (principal); M19.90 Unspecified osteoarthritis, unspecified site; E86.0 Dehydration; R55 Syncope and collapse; R00.0 Tachycardia, unspecified; R44.1 Visual hallucinations; L30.9 Dermatitis, unspecified; F10.21 Alcohol dependence, in remission; G31.84 Mild cognitive impairment of uncertain or unknown etiology; Z91.012 Allergy to eggs; Z83.3 Family history of diabetes mellitus; Y92.838 Other recreation area as the place of occurrence of the external cause; X30.XXXA Exposure to excessive natural heat, initial encounter; Z82.49 Family history of ischemic heart disease and other diseases of the circulatory system; Z83.49 Family history of other endocrine, nutritional and metabolic diseases; Z81.8 Family history of other mental and behavioral disorders
CPT/HCPCS: 36415; 70450; 71045; 71250; 72125; 74176; 80048; 80053; 80307; 80320; 80329; 80364; 81003; 82140; 82330; 82550; 82553; 82803; 83605; 83690; 83735; 83880; 84100; 84300; 84443; 84484; 85025; 85027; 85610; 85730; 86140; 87040; 93005; 93306; 93880; 99285; A9270-GY; G0480; J1644; J3486

== ENCOUNTER 2018-09-29 16:48 | Emergency (ER) | payer MEDICARE ==
--- NOTE | 2018-09-29 17:20 | ED ---
Psychiatric Complaint - HPI Summary HPI Summary: An 78 y/o female brought in by [facility] ambulance presents to [facility] with a chief complaint of being brought in on a 9.45 for being agitated and combative. At triage she rated her pain as a 4/10 in severity. The patient reports that she has been unhappy with her psychiatric care. She claims that in December 2017, she fell and hit her head. She was reportedly diagnosed with heat exhaustion. She claims that when she was here she had an MRI and thought that she was going to . She was reportedly admitted. 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 She says that she had an unpleasant experience when she was admitted, saying that the security operations analyst was dressed up as the devil. She denies drug use. She reports that she dislikes her current living situation, saying that all she can do is walk down a corridor, and watch TV with [employer]r or [employer]. She claims that where she lives everyone the staff are bullies and the people there are bullies because they are being bullied by the staff. She denies a Hx of dementia, even though she does admit to having trouble remembering words. She calls herself insane. She claims that she was sent to the ED today because the staff are uncomfortable with any criticism. Vital signs while in room HR: 79 bpm, O2 Sat: 98, BP: 183/81 - History Of Current Complaint Chief Complaint: EDAltMentalStatus Time Seen by Provider: 09/29/18 17:03 Hx Obtained From: Patient, EMS Hx Last Menstrual Period: Years ago. Onset/Duration: Sudden Onset, Lasting Weeks, Still Present Timing: Constant Severity Initially: Mild Severity Currently: Mild Character: Frustrated Aggravating Factor(s): Nothing Alleviating Factor(s): Nothing Associated Signs And Symptoms: Positive: Hostile Related History: Positive For: Prior Psychiatric Issues Has Suicidal: Denies: Thoughts Has Homicidal: Denies: Thoughts - Allergies/Home Medications Allergies/Adverse Reactions: Allergies Allergy/AdvReac Type Severity Reaction Status Date / Time egg Allergy Stomach Verified 12/22/17 08:22 Cramps lactose Allergy Stomach Verified 12/22/17 08:22 Cramps nut - unspecified Allergy Anaphylatic Verified 12/22/17 08:22 Shock shellfish derived Allergy Anaphylatic Verified 12/22/17 08:22 Shock Home Medications: Home Medications NK [No Home Medications Reported] 09/29/18 [History Confirmed 09/29/18] PMH/Surg Hx/FS Hx/Imm Hx Endocrine/Hematology History: Denies: Hx Diabetes, Hx Thyroid Disease Comment Only: Other Endocrine/Hematological Disorders - eczema Cardiovascular History: Denies: Hx Congestive Heart Failure, Hx Deep Vein Thrombosis, Hx Hypertension , Hx Myocardial Infarction, Hx Pacemaker/ICD Respiratory History: Reports: Other Respiratory Problems/Disorders - nasal polyps, removed Denies: Hx Asthma, Hx Chronic Obstructive Pulmonary Disease (COPD), Hx Lung Cancer GI History: Denies: Hx Gall Bladder Disease, Hx Gastrointestinal Bleed, Hx Ulcer, Hx Urosepsis History: Denies: Hx Kidney Stones, Hx Renal Disease Musculoskeletal History: Reports: Hx Arthritis Sensory History: Reports: Hx Contacts or Glasses Denies: Hx Hearing Aid Opthamlomology History: Reports: Hx Contacts or Glasses Neurological History: Reports: Hx Dementia Denies: Hx Migraine, Hx Seizures, Hx Transient Ischemic Attacks (TIA) Psychiatric History: Denies: Hx Anxiety, Hx Depression, Hx Schizophrenia, Hx Bipolar Disorder - Surgical History Surgery Procedure, Year, and Place: breast bx Infectious Disease History: No Infectious Disease History: Denies: Hx Hepatitis, Hx Human Immunodeficiency Virus (HIV), Traveled Outside the [place] in Last 30 Days - Family History Known Family History: Positive: Cardiac Disease, Hypertension, Diabetes, Other - Cancer - Social History Alcohol Use: None Substance Use Type: Reports: None Smoking Status (MU): Former Smoker Review of Systems Negative: Fever Neurological: Other - positive: brought in on a 9.45 for being agitated and combative. All Other Systems Reviewed And Are Negative: Yes Physical Exam - Summary Physical Exam Summary: Appearance: The patient is well-nourished in no acute distress and in no acute pain. Skin: The skin is warm and dry and skin color reflects adequate perfusion. HEENT: The head is normocephalic and atraumatic. The pupils are equal and reactive. The conjunctivae are clear and without drainage. Nares are patent and without drainage. Mouth reveals moist mucous membranes and the throat is without erythema and exudate. The external ears are intact. The ear canals are patent and without drainage. The tympanic membranes are intact. Neck: The neck is supple with full range of motion and non-tender. There are no carotid bruits. There is no neck vein distension. Respiratory: Chest is non-tender. Lungs are clear to auscultation and breath sounds are symmetrical and equal. Cardiovascular: Heart is regular rate and rhythm. There is no murmur or rub auscultated. There is no peripheral edema and pulses are symmetrical and equal. Abdomen: The abdomen is soft and non-tender. There are normal bowel sounds heard in all four quadrants and there is no organomegaly palpated. Musculoskeletal: There is no back tenderness noted. Extremities are non-tender with full range of motion. There is good capillary refill. There is no peripheral edema or calf tenderness elicited. Neurological: Patient is alert and oriented to person, place and time. The patient has symmetrical motor strength in all four extremities. Cranial nerves are grossly intact. Deep tendon reflexes are symmetrical and equal in all four extremities. Psychiatric: The patient has an appropriate affect and does not exhibit any anxiety or depression. Triage Information Reviewed: Yes Vital Signs On Initial Exam: Initial Vitals Temp Pulse Resp BP Pulse Ox 98.9 F 76 16 157/78 99 09/29/18 16:59 09/29/18 16:59 09/29/18 16:59 09/29/18 16:59 09/29/18 16:59 Vital Signs Reviewed: Yes Diagnostics - Vital Signs Vital Signs Temp Pulse Resp BP Pulse Ox 09/29/18 16:59 98.9 F 76 16 157/78 99 - Laboratory Result Diagrams: 09/29/18 17:50 09/29/18 17:50 Lab Statement: Any lab studies that have been ordered have been reviewed, and results considered in the medical decision making process. Course/Dx - Course Course Of Treatment: Ms. Pompa was sent over from the custodial with a concern for her behavior. They were requesting a mental health eval. She has not been cooperative, following the rules and has been acting bizarrely. This sort of thing has happened before. She is nontoxic in appearance with stable vital signs on arrival. At this point labs are being obtained, she was cooperative and will undergo mental health eval. - Differential Dx/Clinical Impression Provider Diagnosis: Dementia with behavioral disturbance Discharge - Sign-Out/Discharge Documenting (check all that apply): Sign-Out Patient Signing out patient TO: Kulwant Bo - pending MHE Patient Received Moderate/Deep Sedation with Procedure: No - Discharge Plan Referrals: No Primary Care Phys,NOPCP [Primary Care Provider] - - Attestation Statements Document Initiated by Scribe: Yes Documenting Scribe: Marco Conti Provider For Whom Scribe is Documenting (Include Credential): Gaurang Sher MD Scribe Attestation: I, Marco Conti, scribed for Gaurang Sher MD on 09/29/18 at 1853. Scribe Documentation Reviewed: Yes Provider Attestation: The documentation as recorded by the Marco caledron accurately reflects the service I personally performed and the decisions made by me, Gaurang Sher MD Status of Scribe Document: Viewed
[2018-09-29 17:57] LABS: ABS Basophils 0.1 10^3/ul (0-0.2); ABS Eosinophils 0.1 10^3/ul (0-0.6); ABS Monocytes 0.5 10^3/ul (0-0.8); ABS Neutrophils 2.7 10^3/ul (1.5-7.7); ABS Nucleated RBC 0 10^3/ul; Eosinophil % 2.2 %; Hematocrit 37 % (33-41); Hemoglobin 12.4 g/dL (12.0-16.0); Mean Corpuscular HGB Conc 34 g/dL (31-36); Mean Corpuscular Hemoglobin 28 pg (27-31); Mean Corpuscular Volume 84 fL (80-97); Mean Platelet Volume 8.9 fL (7.4-10.4); Nucleated Red Blood Cells % 0; Platelet Count 169 10^3/uL (150-450); Red Blood Count 4.38 10^6 /uL (3.70-4.87); Red Cell Distribution Width 14 % (10.5-15); White Blood Count 4.3 10^3/uL (3.5-10.8)
[2018-09-29 18:20] LABS: ALT 9 U/L (7-52); AST 14 U/L (13-39); Albumin 3.8 g/dL (3.2-5.2); Albumin/Globulin Ratio 1.4 (1-3); Alkaline Phosphatase 79 U/L (34-104); Anion Gap 5 mmol/L (2-11); BUN/Creatinine Ratio 28.8 (8-20); Blood Urea Nitrogen 21 mg/dL (6-24); CO2 Carbon Dioxide 29 mmol/L (22-32); Calcium 8.7 mg/dL (8.6-10.3); Chloride 107 mmol/L (101-111); EGFR African American 92.8 (>60); EGFR Non-African American 76.7 (>60); Globulin 2.8 g/dL (2-4); Glucose 101 mg/dL (70-100); Sodium 141 mmol/L (135-145); Total Protein 6.6 g/dL (6.4-8.9)
[2018-09-29 18:42] LABS: Acetaminophen < 15 mcg/mL; Alcohol < 10 mg/dL (<10); Salicylate < 2.50 mg/dL (<30)
[2018-09-29 18:56] LABS: TSH (Thyroid Stimulating Horm) 2.14 mcIU/mL (0.34-5.60)
--- NOTE | 2018-09-29 19:07 | ED ---
Progress - Progress Note Progress Note: Receiving sign out from Dr. Sher at shift change, pending MHE. Pt's condition has been stable. Course/Dx - Diagnoses Provider Diagnoses: Dementia with behavioral disturbance - Provider Notifications Discussed Care Of Patient With: Vargas Foster Time Discussed With Above Provider: 21:46 Instructed by Provider To: Other - Pt will be discharged. Discharge - Sign-Out/Discharge Documenting (check all that apply): Patient Departure - Discharge, Receiving Sign-Out Receiving patient FROM: Gaurang Sher Patient Received Moderate/Deep Sedation with Procedure: No - Discharge Plan Condition: Stable Disposition: HOME Referrals: No Primary Care Phys,NOPCP [Primary Care Provider] - - Attestation Statements Document Initiated by Scribe: Yes Documenting Scribe: Keri Ba Provider For Whom Scribe is Documenting (Include Credential): Kulwant Bo MD Scribe Attestation: Keri Ribeiro, scribed for Kulwant Bo MD on 09/29/18 at 2200. Status of Scribe Document: Ready
[2018-09-29 20:07] LABS: Barbiturates Urine Screen None Detected (None Detect); Benzodiazepine Urine Screen None Detected (None Detect); Urine Cannabinoids Screen None Detected (None Detect)
[2018-09-29 20:53] LABS: Urine Appearance Clear; Urine Color Straw; Urine Specific Gravity 1.005 (1.010-1.030)
[2018-09-29 20:54] LABS: Urine Bilirubin Negative (Negative); Urine Blood Negative (Negative); Urine Glucose Negative (Negative); Urine Ketones Negative (Negative); Urine Nitrite Negative (Negative); Urine Protein Negative (Negative); Urine Urobilinogen Negative (Negative)
[2018-09-29 22:56] VITALS: BP 134/77
== END 2018-09-29 22:55 | disposition home or self-care (01) ==
LOC: ED 16:48
DX: F03.91 Unspecified dementia, unspecified severity, with behavioral disturbance (principal); Z87.891 Personal history of nicotine dependence
CPT/HCPCS: 36415; 80053; 80307; 80320; 80329; 81003; 84443; 85025; 87641; 99284; G0480

== ENCOUNTER 2019-04-22 13:36 | Emergency (ER) | payer MEDICARE ==
--- NOTE | 2019-04-22 13:51 | ED ---
Head Injury - HPI Summary HPI Summary: Pt is an 78 y/o F presenting to the ED via EMS for a head and neck injury after a fall on 04/22/19. Pt states that she moved to a different apartment one day ago and fell while changing a light bulb. Pt admits injuring her head and neck. Pt admits neck pain, but denies back pain. Pt denies fever or syncope. Pt took Tylenol recently. Pt denies taking any medications. Pt denies a PMHx of DM or HTN. 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 - History Of Current Complaint Stated Complaint: FALL WITH HEAD INJURY PER EMS Time Seen by Provider: 04/22/19 13:49 Hx Obtained From: Patient Hx Last Menstrual Period: Years ago. Mechanism Of Injury: Fall From A Standing Position Onset/Duration: Started Minutes Ago, Traumatic - After a fall, Still Present Onset of Pain: Immediate Severity Initially: Moderate Pain Scale Used: 0-10 Numeric Location of Head Injury: Occipital Associated Signs And Symptoms: Neck Pain - Allergies/Home Medications Allergies/Adverse Reactions: Allergies Allergy/AdvReac Type Severity Reaction Status Date / Time egg Allergy Stomach Verified 04/22/19 14:03 Cramps lactose Allergy Stomach Verified 04/22/19 14:03 Cramps nut - unspecified Allergy Anaphylatic Verified 04/22/19 14:03 Shock shellfish derived Allergy Anaphylatic Verified 04/22/19 14:03 Shock Home Medications: Home Medications Ketoconazole 1 applic TOPICAL DAILY 04/22/19 [History Confirmed 04/22/19] PMH/Surg Hx/FS Hx/Imm Hx Previously Healthy: Yes Endocrine/Hematology History: Denies: Hx Diabetes, Hx Thyroid Disease Comment Only: Other Endocrine/Hematological Disorders - eczema Cardiovascular History: Denies: Hx Congestive Heart Failure, Hx Deep Vein Thrombosis, Hx Hypertension , Hx Myocardial Infarction, Hx Pacemaker/ICD Respiratory History: Reports: Other Respiratory Problems/Disorders - nasal polyps, removed Denies: Hx Asthma, Hx Chronic Obstructive Pulmonary Disease (COPD), Hx Lung Cancer GI History: Denies: Hx Gall Bladder Disease, Hx Gastrointestinal Bleed, Hx Ulcer, Hx Urosepsis History: Denies: Hx Kidney Stones, Hx Renal Disease Musculoskeletal History: Reports: Hx Arthritis Sensory History: Reports: Hx Contacts or Glasses Denies: Hx Hearing Aid Opthamlomology History: Reports: Hx Contacts or Glasses Neurological History: Reports: Hx Dementia Denies: Hx Migraine, Hx Seizures, Hx Transient Ischemic Attacks (TIA) Psychiatric History: Denies: Hx Anxiety, Hx Eating Disorder, Hx Depression, Hx Schizophrenia, Hx Bipolar Disorder - Surgical History Surgical History: Yes Surgery Procedure, Year, and Place: breast bx Infectious Disease History: Denies: Hx Hepatitis, Hx Human Immunodeficiency Virus (HIV) - Family History Known Family History: Positive: Cardiac Disease, Hypertension, Diabetes, Other - Cancer - Social History Alcohol Use: None Hx Substance Use: No Substance Use Type: Reports: None Hx Tobacco Use: Yes Smoking Status (MU): Former Smoker Review of Systems Negative: Fever Positive: Arthralgia - Neck Neurological: Other - Positive head and neck injury Negative: Syncope All Other Systems Reviewed And Are Negative: Yes Physical Exam - Summary Physical Exam Summary: Constitutional: Well-developed, Well-nourished, Alert. (-) Distressed Skin: Warm, Dry HENT: Normocephalic; Atraumatic Eyes: Conjunctiva normal Neck: Musculoskeletal ROM normal neck. (-) JVD, (-) Stridor, (-) Tracheal deviation Cardio: Rhythm regular, rate normal, Heart sounds normal; Intact distal pulses; Radial pulses are 2+ and symmetric. (-) Murmur Pulmonary/Chest wall: Effort normal. (-) Respiratory distress, (-) Wheezes, (-) Rales Abd: Soft, (-) tenderness, (-) Distension, (-) Guarding, (-) Rebound Musculoskeletal: (-) Edema Lymph: (-) Cervical adenopathy Neuro: Alert, Oriented x3. Large hematoma to occiput, no midline cervical tenderness. Psych: Mood and affect Normal Triage Information Reviewed: Yes Vital Signs Reviewed: Yes - [place] Coma Scale Best Eye Response: 4 - Spontaneous Best Motor Response: 6 - Obeys Commands Best Verbal Response: 5 - Oriented Coma Scale Total: 15 Procedures - Sedation Patient Received Moderate/Deep Sedation with Procedure: No Diagnostics - Laboratory Lab Statement: Any lab studies that have been ordered have been reviewed, and results considered in the medical decision making process. - CT Cervical Spine CT CT Interpretation Completed By: Radiologist Summary of CT Findings: Cervical Spine CT IMPRESSION: #. No CT evidence for traumatic cervical spine injury. Reviewed by ED physician. Brain CT CT Interpretation Completed By: Radiologist Summary of CT Findings: Brain CT IMPRESSION: NO ACUTE INTRACRANIAL PATHOLOGY. Reviewed by ED physician. Head Injury Course/Dx Course Of Treatment: Patient is here following a mechanical fall changing a light bulb. Patient had a negative CT head and cervical spine performed. Patient had no other injuries. Patient was sent back to her assisted. - Diagnoses Provider Diagnoses: Fall, Hematoma of occipital surface of head Discharge ED - Sign-Out/Discharge Documenting (check all that apply): Patient Departure - Discharge - Discharge Plan Condition: Stable Disposition: HOME Patient Education Materials: Fall Prevention for Older Adults (ED) Referrals: [facility] [Outside] Additional Instructions: Have staff look out for vision changes, weakness in one side of the body, slurred speech, and facial droop. Return to the ED for any new or worsening symptoms. - Billing Disposition and Condition Condition: STABLE Disposition: Home - Attestation Statements Document Initiated by Jonnathan: Yes Documenting Scribe: Sonya Menon Provider For Whom Jonnathan is Documenting (Include Credential): Efrain Keene MD Scribe Attestation: Sonya Ribeiro, scribed for Efrain Keene MD on 04/22/19 at 2042. Scribe Documentation Reviewed: Yes Provider Attestation: The documentation as recorded by the Sonya calderon accurately reflects the service I personally performed and the decisions made by , Efrain Keene MD Status of Scribe Document: Viewed
[2019-04-22 17:13] VITALS: BP 150/75
== END 2019-04-22 16:01 | disposition home or self-care (01) ==
LOC: ED 13:36
DX: S00.03XA Contusion of scalp, initial encounter (principal); M19.90 Unspecified osteoarthritis, unspecified site; F03.90 Unspecified dementia, unspecified severity, without behavioral disturbance, psychotic disturbance, mood disturbance, and anxiety; Z87.891 Personal history of nicotine dependence; W17.89XA Other fall from one level to another, initial encounter; Y93.89 Activity, other specified; Y92.039 Unspecified place in apartment as the place of occurrence of the external cause
CPT/HCPCS: 70450; 72125; 99282

== ENCOUNTER 2019-09-27 04:03 | Inpatient (IN) | payer MEDICARE ==
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
[2019-09-27] MEDS ORDERED: NS 0.9% 1000 ML** 1,000 ML IV ONE (04:25)
[2019-09-27 05:25] LABS: ABS Lymphocytes 0.2 10^3/ul (1.0-4.8); ABS Monocytes 0.7 10^3/ul (0-0.8); ABS Neutrophils 10.7 10^3/ul (1.5-7.7); Hematocrit 40 % (35-47); Hemoglobin 13.1 g/dL (12.0-16.0); Lymphocyte % 2.1 %; Mean Corpuscular HGB Conc 33 g/dL (31-36); Mean Corpuscular Hemoglobin 28 pg (27-31); Mean Corpuscular Volume 84 fL (80-97); Mean Platelet Volume 8.8 fL (7.4-10.4); Platelet Count 204 10^3/uL (150-450); Red Blood Count 4.74 10^6 /uL (3.70-4.87); Red Cell Distribution Width 15 % (10-15); White Blood Count 11.6 10^3/uL (3.5-10.8)
[2019-09-27 05:45] LABS: Activated Partial Thrombo Time 29.3 seconds (26.0-38.0); INR 1.06 (0.82-1.09)
[2019-09-27 05:56] LABS: Albumin/Globulin Ratio 1.3 (1-3); BUN/Creatinine Ratio 26.6 (8-20); EGFR African American 69.2 (>60); EGFR Non-African American 57.2 (>60); Globulin 3.1 g/dL (2-4); Potassium 4.5 mmol/L (3.5-5.0); Total Bilirubin 0.5 mg/dL (0.2-1.0); Total Protein 7.1 g/dL (6.4-8.9)
[2019-09-27] MEDS ORDERED: Ondansetron INJ* 2 MG/ML VIAL IV PRN ×2 (06:05→11:37)
[2019-09-27] MEDS ORDERED: Morphine INJ* 2 MG/ML 1 ML SYRINGE (TWO MG - NEW SYRINGE VERSION) IV PRN (06:05)
[2019-09-27] MEDS ORDERED: NS 0.9% 1000 ML** 1,000 ML IV SCH (06:15)
[2019-09-27 06:31] LABS: Urine Appearance Turbid; Urine Bilirubin Negative (Negative); Urine Blood 1+ (Negative); Urine Color Yellow; Urine Glucose 1+(50 mg/dL) (Negative); Urine Ketones 1+ (Negative); Urine Nitrite Negative (Negative); Urine Protein 1+(30 mg/dL) (Negative); Urine Specific Gravity 1.021 (1.010-1.030); Urine Urobilinogen Negative (Negative)
[2019-09-27 06:48] LABS: Urine Bacteria Absent (Absent); Urine Red Blood Cell 3+(>10/hpf) (Absent); Urine Squamous Epithelial Cell Present (Absent); Urine White Blood Cell 3+(>20/hpf) (Absent)
--- NOTE | 2019-09-27 09:24 | HP ---
CC: Armando Basilio; Dr. Reynolds * HISTORY AND PHYSICAL: DATE OF ADMISSION: 09/27/19 PRIMARY CARE PROVIDER: Armando Basilio. CONSULTING ORTHOPEDIST: Dr. Reynolds. ATTENDING PHYSICIAN WHILE IN THE HOSPITAL: Dr. Noriega * (dictated by Reji Mercedes NP). CHIEF COMPLAINT: Fall. HISTORY OF PRESENT ILLNESS: Mrs. Pompa is an 79-year-old female patient, who has had significant history of dementia, eczema, also carries a history of arthritis, who unfortunately tonight at 2:30 was last seen in her bed. According to staff at [facility], they went back in to check on her about half an hour later and she was on the floor singing. She was really unable to tell them what had happened. It is unclear if she had any syncope or not, but she was on the floor. The nursing staff attended to her noted that she had an abrasion on the back of her head. They had asked the patient if she wanted to go to the hospital and she said, yes, that she was having significant pain in her left hip, so they called 911 and the patient was brought into the hospital. The patient again does not recall the fall. She does have dementia, but she does know that she was in a significant amount of discomfort and significant amount of pain. The patient came into the ER, it was noted that she had an obvious hip deformity and because of this x-rays were obtained and there was a hip fracture noted. Again the significant history, the patient does carry a history of dementia. She has had a history of syncope in the past and has had a history of arthritis and eczema. The patient when questioning her about what happened today, she states she cannot remember, although she can tell me that she is in a significant amount of pain. PAST MEDICAL HISTORY: 1. Dementia. 2. Eczema. 3. Arthritis. 4. Nasal polyps. PAST SURGICAL HISTORY: She has had nasal polypectomy. HOME MEDICATIONS: According to the list provided include: 1. Benadryl 30 cc p.o. as directed. 2. Ketoconazole 1 application topically daily. 3. EpiPen 0.3 mg IM once. 4. Tums 2 tabs every 6 hours as needed. 5. Tylenol 650 mg every 6 hours as needed. ALLERGIES TO MEDICATIONS: Include none. She is allergic to EGGS, FISH, LACTOSE , NUTS, SHELLFISH . FAMILY HISTORY: Her mother had throat cancer. Father had diabetes, heart disease, and hypertension. SOCIAL HISTORY: She does not smoke. There are no reports of drinking. Surrogate decision maker is, Maddy Henry and Branden Henry. REVIEW OF SYSTEMS: There is no documented fever. She denied any significant weight change. There is no ear discharge. There is no rhinorrhea. No sore throat. No thyroid enlargement. She denies having any chest pain. There is no orthopnea. No nocturnal dyspnea. No abdominal pain. No nausea. No vomiting. No dysuria. No frequency. No seizure. Again, no loss of consciousness reported. No seizure-like activity. Review of 14 systems completed. All others negative. PHYSICAL EXAMINATION GENERAL: At this time, Ms. Pompa is an 79-year-old female patient. She is sitting in the ED stretcher. She does appear to be cachectic. She appears to be malnourished. She does not appear to be in any acute distress. VITAL SIGNS: Blood pressure 164/73, pulse of 110, respirations 22, O2 saturation 100%, temperature 99.5. HEENT: Head: and normocephalic, in fact she does have an abrasion to the back of her head. Eyes: EOMs intact. Sclerae anicteric, not pale. Throat : Oral mucosa appears to be moist. Oral mucosa appears to be dry. No oropharyngeal erythema. NECK: Supple. LUNGS: Diminished in the bases, but no wheezes, rales or rhonchi. HEART: Heart sounds S1, S2. She is tachycardic. There are no murmurs, rubs or gallops. ABDOMEN: Soft, flat, nontender. Bowel sounds are present. EXTREMITIES: The left lower extremity distal CSM checks are intact. She does have shortened and rotated left lower extremity. She is moving the upper extremity with 5/5 strength. She has limited range of motion in the lower extremities because any movement does cause significant discomfort. NEUROLOGIC: She is awake. She is alert. She knows the month and year. She does not recall what happened earlier tonight, but she does know her name and she knows that she is at the hospital. Her speech is clear. Tongue is midline. She is moving the upper extremities. She cannot move the left lower extremity or right lower extremity because of pain limitations, but no gross focal deficits are noted. SKIN: Grossly intact. She does have an abrasion of the back of her head and she also does have an abrasion to the right lower extremity medially just above the right ankle. DIAGNOSTIC STUDIES/LAB DATA: Today revealed a WBC of 11.6, RBC of 4.74, hemoglobin of 13.1, hematocrit 40, platelet count of 204. INR 1.06, PTT of 29.3. Sodium 142, potassium 4.5, chloride of 107, bicarb 26. BUN 25, creatinine 0.94. Glucose 173, calcium 9. Total bili 0.5, AST 24, ALT 17, alk phos 126. Troponin 0. Albumin 4.0. She had imaging in the ED. Brain CT, no acute intracranial pathology. Cervical spine CT was obtained as well. Impression: No acute fractures or spondylolisthesis. She did have an EKG obtained today, which does show a sinus tachycardia, rate of 100 with LVH noted. She has no ST elevation or T-wave inversions noted. She had upsloping ST segments, when you review it to a previous EKG that it is similar except that the rate is faster now and the LVH was present previously. She did have a chest x-ray obtained today, which does show hyperinflation. I did not appreciate any acute infiltrates or pleural effusion. She did have a hip x-ray obtained today, which does show a left femoral neck fracture. Old medical records were reviewed. ASSESSMENT AND PLAN: Mrs. Pompa is an 79-year-old female patient coming into the ED today with complaints of a fall. She does not remember the details. assisted staff did report that they found her on the floor. They last had seen her at about 2:30 and then found her at about 3:04 on the floor. On evaluation in the ED, was found to have a left femoral neck fracture. She will be admitted under inpatient status for: 1. Left hip fracture. At this point, her RCRI is 0. She has a 3.9% 30 day risk of , myocardial infarction, or cardiac arrest. The EKG does show tachycardia, but I suspect this is related to the pain. She does admit to me she is in a significant amount of pain. When discussing with her treatment options, she was hesitant about surgery, but I had advised her to at least discuss this with Surgery. I did leave messages with the patient's healthcare proxy. There is a copy of this in the chart from 2018. I left a message with Branden Henry and Maddy Henry. The plan going forward would be to strive for pain control. Orthopedic consult has been placed. From our standpoint, she is medically optimized. Her biggest risk is her advanced age. I would try to limit the amount of anesthesia to the least amount as possible. Given the fact that she does have dementia, she will be at risk for postoperative delirium, which we will provide supportive care and will be able to look out for. For time being, we will place her on bedrest, turning position every 2 hours, and we will again offer pain control and orthopedics in consult. 2. Dementia. Continue with supportive care. 3. Eczema. Continue with current medical regimen. 4. Arthritis. We have ordered p.r.n. Tylenol. 5. DVT prophylaxis: She is high risk, I have placed her on heparin subcu. 6. Code status: She does wish to be a DNR. 7. Fluids, electrolytes, and nutrition: I made her n.p.o. in case we do pursue surgery later today. She does appear to be dry. I did order a normal saline at 100 mL an hour. She did receive a liter here in the ER. TIME SPENT: Time spent on the admission was 60 minutes, greater than half the time was spent [id number] with the patient obtaining my history of physical, the other half time was spent going over the plan of care with the patient and implementing my plan of care. I discussed the plan of care with my attending Dr. Noriega, who is in agreement. REJI MERCEDES, HEVER [id number]/CPS #: [id number] TULIO
[2019-09-27] MEDS ORDERED: ceFAZolin 2 GM PREMIX in ORs 2 GM/50 ML BAG ONE (09:47)
[2019-09-27] MEDS ORDERED: fentaNYL* 50 MCG/ML 2 ML VIAL (100 MCG VIAL) ONE ×2 (10:30→11:23)
[2019-09-27] MEDS ORDERED: Cisatracurium* 2 MG/ML MDV 5 ML ONE (10:30)
[2019-09-27] MEDS ORDERED: Famotidine IV* 10 MG/ML 2 ML (20 mg) ONE (10:36)
[2019-09-27] MEDS ORDERED: Acetaminophen IV 1GM/100ML * 100 ML ONE (10:42)
[2019-09-27] MEDS ORDERED: Lidocaine 2% PF * 5 ML VIAL ONE (10:42)
[2019-09-27] MEDS ORDERED: Ondansetron INJ* 2 MG/ML VIAL ONE (11:16)
[2019-09-27] MEDS ORDERED: Succinylcholine* 20 MG/ML 10 ML VIAL ONE (11:16)
[2019-09-27] MEDS ORDERED: Propofol* 10 MG/ML 20 ML BTL ONE (11:16)
[2019-09-27] MEDS ORDERED: EPHEDrine (Pressors)* 50 MG/ML VIAL ONE (11:16)
[2019-09-27] MEDS ORDERED: Bupivacaine 0.5%* 50 ML MDV VIAL ONE (11:18)
[2019-09-27] MEDS ORDERED: Lidocaine 1% w EPI 1:100,000* MDV 20 ML VIAL ONE (11:18)
[2019-09-27] MEDS ORDERED: Naloxone* 0.4 MG/ML 1 ML VIAL IV PRN (11:37)
[2019-09-27] MEDS ORDERED: fentaNYL* 50 MCG/ML 2 ML VIAL (100 MCG VIAL) IV PRN (11:37)
[2019-09-27] MEDS ORDERED: DiMENhydriNATE IV* 50 MG/ML VIAL IV PUSH PRN (11:37)
[2019-09-27] MEDS ORDERED: Lactated Ringers 1000 ML Bag* 1,000 ML IV SCH (12:00)
--- NOTE | 2019-09-27 13:22 | OP ---
DATE OF OPERATION: 09/27/19 - ROOM #341 DATE OF : 36 SURGEON: Alberto Reynolds MD. CLINICAL STAFF PHARMACIST: ANTHONY Hoover. ANESTHESIA: General endotracheal. PRE-OP DIAGNOSIS: Displaced left femoral neck fracture. POST-OP DIAGNOSIS: Displaced left femoral neck fracture. OPERATIVE PROCEDURE: Left hip hemiarthroplasty. ESTIMATED BLOOD LOSS: 200 cc. COMPLICATIONS: None. HARDWARE: Aliyah 7.5 standard neck M/L taper, -3.5 28-mm head, 45-mm bipolar head. INDICATION: Ms. Pompa is an 79-year-old female who is a resident at [facility]. She had fallen overnight and presented to the emergency room in the early a.m. hours. X-rays were taken which found a displaced left femoral neck fracture. She has a history of dementia and GERD as well as eczema, but otherwise was fairly healthy. The hospitalist service had declared her medically optimized and I discussed with her and her nephew that a left hip hemiarthroplasty should work well to decrease her pain, so she could be mobile and up and about. Risks of surgery such as infection, scar formation, stiffness , DVT, pulmonary embolism, hardware failure, leg length discrepancy, and instability were some of the risks discussed. She had wished to proceed and we also obtained consent from her nephew who has power of attorney general. DESCRIPTION OF PROCEDURE: The patient was brought to the OR and general endotracheal anesthesia was established. She was then rolled into the right lateral decubitus position. Axillary roll was placed, and she appeared to be nicely padded using the gel pads. Posts were placed and again the gel pads were placed so that her skin was nicely padded. Left hip area was prepped and then draped. Skin over the greater trochanter was sharply incised and small bleeders encountered were ligated using electrocautery. Fascia was easily exposed and sharply incised. Greater trochanteric bursa was present. This was taken down using electrocautery. Hohmann was placed under the gluteus medius/ gluteus minimus and it could be seen she had partially torn her capsule. I tried to work more in that tear window, but was unable to and eventually did open the capsule more fully. Fracture was then easily evident. Cleanup cut was taken along the femoral neck and a bone hook was used to pull the proximal femur forward. Corkscrew along with the skid was then placed and femoral head was taken out. Preoperative templating had measured the head at about 48 mm and the head measured approximately 45 mm. She was then trialed with a 44 and a 45 trial size and I liked how the 45 fit better. Acetabulum was swept multiple times for any other loose pieces as well as being copiously pulse lavaged. Attention was turned to the proximal femur. Canal finder was used to run down the proper direction of the canal, and box osteotome was used to open up the proximal femur. Beginning with a 4 broach, she was progressively broached. She was templated to a 9, but considering that the head was smaller, I thought a 7.5 would fit well and it seemed like it did. She was initially a little bit long as my femoral neck cut probably had not taken enough and an additional cut was taken, taking a little bit more. She then had been able to be countersunk. With this she was much more snug with the broach and seemed to sit flush. She was trialed with a standard neck and a minus head, and seemed to have her leg length appeared to be restored and had excellent stability. I thought she was a little tight in extension, as the knee did extend with the hip coming into flexion. I did believe leg lenght was very close. Trial instrumentation was removed and the hip was copiously pulse lavaged. Implants were brought on to the table. A 7.5 was then impacted into place, this was done smoothly and gently. She was then trialed again with the minus head and 45 and after dislocating, the organ builder was reattached and there was no play at all to the implant. Head was then impacted and the plastic liner was snapped on and the other head was then snapped into place as well. Hip was then easily located and she had the same wonderful motion and stability. Hip was again copiously pulse lavaged, and capsule and short external rotators were repaired together to the posterior aspect of the greater trochanter. Hip was again pulse lavaged and fascia was repaired using interrupted #1 Vicryl sutures. 10 cc of local which was 0.5% Marcaine mixed with 1% lidocaine with epinephrine, 10 cc of the mixture was injected over the anterior incision and then posterior incision and additional 20 cc into the hip joint. Subcutaneous tissues were reapproximated using 2-0 Vicryl. Skin was closed using josue. Sterile dressing was applied in the OR. The patient was then rolled on to the hospital bed and was stable on transfer to the recovery room. [id number]/CPS #: [id number] MTDD
[2019-09-27] MEDS ORDERED: Heparin VIAL(*) 5000 UNITS/ML VIAL (FIVE THOUSAND) SUBCUT SCH (14:00)
[2019-09-27] MEDS: Acetaminophen TAB* 325 MG PO PRN (15:08)
[2019-09-27] MEDS ORDERED: Magnesium Hydroxide LIQ* 30 ML UDC PO PRN (15:09)
--- NOTE | 2019-09-27 15:38 | PN ---
Progress Note - Progress Note Date of Service: 09/27/19 Note: Pt seen for brief follow up from admission this AM. She is now s/p ORIF L hip. She denies any pain or SOB. She states she feels great and like she is on vacation. Doing well post op. Can return to [facility] for rehab when ok'ed by orthopedics and is medically stable.
[2019-09-27] MEDS: ceFAZolin 1 GM* X 3 DOSES POST-OP Q8H (AddVan) IVPB SCH ×2 (19:21)
[2019-09-27] MEDS: NS 0.9% 1000 ML** 1,000 ML IV SCH (23:58)
[2019-09-28] MEDS: ceFAZolin 1 GM* X 3 DOSES POST-OP Q8H (AddVan) IVPB SCH ×4 (03:34→11:28)
[2019-09-28 05:54] LABS: ABS Lymphocytes 0.4 10^3/ul (1.0-4.8); ABS Monocytes 1.2 10^3/ul (0-0.8); ABS Neutrophils 7.3 10^3/ul (1.5-7.7); Eosinophil % 0.1 %; Hematocrit 32 % (35-47); Hemoglobin 10.6 g/dL (12.0-16.0); Lymphocyte % 4.4 %; Mean Corpuscular HGB Conc 34 g/dL (31-36); Mean Corpuscular Hemoglobin 28 pg (27-31); Mean Corpuscular Volume 84 fL (80-97); Mean Platelet Volume 8.5 fL (7.4-10.4); Platelet Count 151 10^3/uL (150-450); Red Blood Count 3.75 10^6 /uL (3.70-4.87); Red Cell Distribution Width 15 % (10-15)
[2019-09-28 06:10] LABS: BUN/Creatinine Ratio 25.4 (8-20); EGFR African American 102.2 (>60); EGFR Non-African American 84.5 (>60); Potassium 3.9 mmol/L (3.5-5.0)
--- NOTE | 2019-09-28 07:46 | PN ---
Subjective Date of Service: 09/28/19 Interval History: HD2 on 09/27 79F PMH moderate dementia domiciled at who presented s/p mechanical fall and L hip fracture. POD1 L hemiarthroplasty Overnight, no acute events, VSS Labs: Mild blood loss anemia This morning, pleasantly demented, no complaints of pain, not aware that she had surgery. Reports no BM, but urinating freely, is out of bed to chair but still non weight bearing as of yet. No CP GI or other MSK complaints. Oriented to self. Objective Active Medications: Acetaminophen (Tylenol Tab*) 650 mg PO Q4H PRN PRN Reason: PAIN - MILD Last Admin: 09/27/19 15:08 Dose: 650 mg Hydrocodone Bitart/Acetaminophen (Greenup 5-325 Tab*) 1 tab PO Q2H PRN PRN Reason: PAIN - MODERATE Heparin Sodium (Porcine) (Heparin Vial(*)) 5,000 units SUBCUT Q12HR JESSE Sodium Chloride (Ns 0.9% 1000 Ml) 1,000 mls @ 100 mls/hr IV PER RATE JESSE Last Admin: 09/27/19 23:58 Dose: 100 mls/hr Cefazolin Sodium 1 gm/ Sodium (Chloride) 50 mls @ 200 mls/hr IVPB Q8H JESSE Stop: 09/28/19 11:44 Last Admin: 09/28/19 03:34 Dose: 200 mls/hr Magnesium Hydroxide (Milk Of Magnlorrie Liq*) 30 ml PO BEDTIME PRN PRN Reason: NO BM THAT DAY Morphine Sulfate (Morphine Inj (Syringe))*) 2 mg IV Q4H PRN PRN Reason: PAIN - SEVERE Last Admin: 09/27/19 06:19 Dose: 2 mg Ondansetron HCl (Zofran Inj*) 4 mg IV Q6H PRN PRN Reason: NAUSEA Vital Signs - 8 hr 09/27/19 09/28/19 23:52 03:31 Temperature 97.4 F 97.7 F Pulse Rate 109 111 Respiratory 18 18 Rate Blood Pressure 139/59 146/52 (mmHg) O2 Sat by Pulse 97 97 Oximetry Oxygen Devices in Use Now: None Appearance: Frail woman in NAD, sitting up in a chair. Eyes: No Scleral Icterus, PERRLA Ears/Nose/Mouth/Throat: NL Teeth, Lips, Gums, - - Dry MM Respiratory: Symmetrical Chest Expansion and Respiratory Effort, Clear to Auscultation Cardiovascular: NL Sounds; No Murmurs; No JVD, RRR, - - Mild sinus tach Abdominal: NL Sounds; No Tenderness; No Distention, No Hepatosplenomegaly Lymphatic: No Cervical Adenopathy Extremities: No Edema Skin: No Rash or Ulcers Neurological: - - Oriented to self Result Diagrams: 09/28/19 05:48 09/28/19 05:48 Microbiology and Other Data: Microbiology 09/27/19 04:18 Nasal Screen MRSA (PCR) - Final Nasal Mrsa Not Detected Diagnostic Imaging: Hip XRAY 09/26 IMPRESSION: 1. DISPLACED LEFT SUBCAPITAL FEMORAL NECK FRACTURE. 2. OSTEOPENIA. 3. DEGENERATIVE DISEASE ABOVE. Assess/Plan/Problems-Billing Assessment: 79F PMH moderate dementia domiciled at who presented s/p mechanical fall and L hip fracture. POD1 L hemiarthroplasty on 09/28/2019 - Patient Problems (1) Hip fracture, left Current Visit: Yes Status: Acute Code(s): S72.002A - FRACTURE OF UNSP PART OF NECK OF LEFT FEMUR, INIT SNOMED Code(s): 254144229 Comment: -POD1 L hemiarthroplasty -Pain control per surgery, added bowel regimen -PT OT consult in place -Finishing last dose of PPX cefazolin (2) Osteoarthritis Current Visit: No Status: Acute Code(s): M19.90 - UNSPECIFIED OSTEOARTHRITIS , UNSPECIFIED SITE SNOMED Code(s): 750140512 Comment: -Continue PRN Tylenol (3) Sinus tachycardia Current Visit: Yes Status: Acute Code(s): R00.0 - TACHYCARDIA, UNSPECIFIED SNOMED Code(s): 25050606 Comment: -Mild and asypmtomatic -Continue to monitor, likely pain related, no need to hold up discharge (4) Dementia Current Visit: Yes Status: Acute Code(s): F03.90 - UNSPECIFIED DEMENTIA WITHOUT BEHAVIORAL DISTURBANCE SNOMED Code(s): 67369720 Comment: -Currently w/o behavioral disturbance -Oriented to self at baseline (5) DVT prophylaxis Current Visit: No Status: Acute Code(s): JXS4085 - SNOMED Code(s): 959493443 Comment: -[facility] (6) DNR (do not resuscitate) Current Visit: Yes Status: Acute Status and Disposition: PT OT: Consult in place Diet: Unrestricted Dispo: Back to where she resided before when surgically cleared.
[2019-09-28] MEDS: Heparin VIAL(*) 5000 UNITS/ML VIAL (FIVE THOUSAND) SUBCUT SCH ×2 (08:37→21:13)
[2019-09-28] MEDS: HYDROcodone/ACETAMIN 5-325 MG* 1 TAB PO PRN (08:37)
--- NOTE | 2019-09-28 09:58 | PN ---
Progress Note - Progress Note Date of Service: 09/28/19 SOAP: Subjective: [Pt was seen this am sitting in chair. States that she is doing well although she is tired and falling asleep. She states that she does have pain about the left hip. She denies any SOB, chest pain. ] Objective: [MSK: LLE: Dressing is c/d/i. + DF/PF, sensation intact to light touch distally , calf is soft and non tender. She has + DP pulse. ] Assessment: [POD 1 Left hip hemiarthroplasty ] Plan: [Dressing change tomorrow Continue with current anticoagulation PT/OT ] Vital Signs Temp 98 F 09/28/19 07:43 Pulse 105 09/28/19 07:43 Resp 20 09/28/19 08:37 BP 150/54 09/28/19 07:43 Pulse Ox 97 09/28/19 07:43 Intake & Output 09/27/19 09/28/19 09/28/19 18:59 06:59 18:59 Intake Total 1320 1394 Output Total 400 550 Balance 920 844 Weight 100 lb 102 lb 12.8 oz Intake: IV Fluids 1000 950 LR 1000 NS (0.9%) 950 IVPB 54 ABX - CEFAZOLIN 54 Oral 320 390 Output: Urine 550 Chau 200 Estimated Blood Loss 200
[2019-09-28] MEDS: NS 0.9% 1000 ML** 1,000 ML IV SCH ×2 (11:05→21:02)
[2019-09-28] MEDS ORDERED: Senna TAB 8.6 mg* TAB PO PRN (11:32)
[2019-09-28] MEDS: Docusate CAP* 100 MG PO SCH (11:49)
[2019-09-29] MEDS: Acetaminophen TAB* 325 MG PO PRN ×2 (04:15→09:40)
[2019-09-29 05:11] LABS: ABS Lymphocytes 0.6 10^3/ul (1.0-4.8); ABS Monocytes 1.3 10^3/ul (0-0.8); ABS Neutrophils 7.2 10^3/ul (1.5-7.7); Hematocrit 28 % (35-47); Hemoglobin 9.7 g/dL (12.0-16.0); Lymphocyte % 6.9 %; Mean Corpuscular HGB Conc 34 g/dL (31-36); Mean Corpuscular Hemoglobin 29 pg (27-31); Mean Corpuscular Volume 84 fL (80-97); Mean Platelet Volume 9.2 fL (7.4-10.4); Platelet Count 141 10^3/uL (150-450); Red Cell Distribution Width 15 % (10-15); White Blood Count 9.2 10^3/uL (3.5-10.8)
[2019-09-29 05:27] LABS: BUN/Creatinine Ratio 26.8 (8-20); Calcium 7.7 mg/dL (8.6-10.3); EGFR African American 125.7 (>60); EGFR Non-African American 103.9 (>60); Potassium 3.5 mmol/L (3.5-5.0)
[2019-09-29 06:32] LABS: ABS Basophils 0.1 10^3/ul (0-0.2); ABS Lymphocytes 0.7 10^3/ul (1.0-4.8); ABS Monocytes 1.2 10^3/ul (0-0.8); ABS Neutrophils 6.9 10^3/ul (1.5-7.7); Eosinophil % 0.1 %; Hematocrit 28 % (35-47); Hemoglobin 9.5 g/dL (12.0-16.0); Lymphocyte % 7.5 %; Mean Corpuscular HGB Conc 34 g/dL (31-36); Mean Corpuscular Hemoglobin 28 pg (27-31); Mean Corpuscular Volume 83 fL (80-97); Mean Platelet Volume 8.6 fL (7.4-10.4); Platelet Count 133 10^3/uL (150-450); Red Blood Count 3.35 10^6 /uL (3.70-4.87); Red Cell Distribution Width 15 % (10-15); White Blood Count 8.8 10^3/uL (3.5-10.8)
[2019-09-29 06:50] LABS: BUN/Creatinine Ratio 28.1 (8-20); Calcium 7.7 mg/dL (8.6-10.3); EGFR African American 123.2 (>60); EGFR Non-African American 101.8 (>60); Potassium 3.5 mmol/L (3.5-5.0)
[2019-09-29] MEDS ORDERED: Furosemide IV* 10 MG/ML VIAL (40 MG) IV ONE (09:00)
--- NOTE | 2019-09-29 09:12 | PN ---
Subjective Date of Service: 09/29/19 Interval History: Pt feels comfortable, afraid of "using her legs" due to post op state, pleasantly confused Objective Active Medications: Acetaminophen (Tylenol Tab*) 650 mg PO Q4H PRN PRN Reason: PAIN - MILD Last Admin: 09/29/19 04:15 Dose: 650 mg Hydrocodone Bitart/Acetaminophen (Cobden 5-325 Tab*) 1 tab PO Q2H PRN PRN Reason: PAIN - MODERATE Last Admin: 09/28/19 08:37 Dose: 1 tab Docusate Sodium (Colace Cap*) 200 mg PO DAILY JESSE Stop: 10/01/19 11:59 Last Admin: 09/28/19 11:49 Dose: 200 mg Heparin Sodium (Porcine) (Heparin Vial(*)) 5,000 units SUBCUT Q12HR JESSE Last Admin: 09/28/19 21:13 Dose: 5,000 units Magnesium Hydroxide (Milk Of Magnesia Liq*) 30 ml PO BEDTIME PRN PRN Reason: NO BM THAT DAY Last Admin: 09/28/19 08:37 Dose: 30 ml Morphine Sulfate (Morphine Inj (Syringe))*) 2 mg IV Q4H PRN PRN Reason: PAIN - SEVERE Last Admin: 09/27/19 06:19 Dose: 2 mg Ondansetron HCl (Zofran Inj*) 4 mg IV Q6H PRN PRN Reason: NAUSEA Senna (Senokot 8.6 Mg Tab*) 2 tab PO BEDTIME PRN PRN Reason: CONSTIPATION Vital Signs - 8 hr 09/29/19 09/29/19 09/29/19 03:45 08:00 08:28 Temperature 102.8 F 100.1 F 98.2 F Pulse Rate 106 94 Respiratory 17 22 22 Rate Blood Pressure 151/64 142/62 (mmHg) O2 Sat by Pulse 95 97 97 Oximetry 09/29/19 08:49 Temperature 99.9 F Pulse Rate Respiratory Rate Blood Pressure (mmHg) O2 Sat by Pulse Oximetry Oxygen Devices in Use Now: None Appearance: 79 yo F in NAD, AAOx2, poor historian Eyes: No Scleral Icterus, PERRLA Ears/Nose/Mouth/Throat: NL Teeth, Lips, Gums, Mucous Membranes Moist Neck: NL Appearance and Movements; NL JVP, Trachea Midline Respiratory: Symmetrical Chest Expansion and Respiratory Effort, - - faint crackles at LLL Cardiovascular: NL Sounds; No Murmurs; No JVD, RRR Abdominal: NL Sounds; No Tenderness; No Distention Lymphatic: No Cervical Adenopathy Extremities: No Edema Skin: No Rash or Ulcers, - - post op incision covered, no gross hematoma of the surrounding skin Neurological: NL Muscle Strength and Tone Result Diagrams: 09/29/19 06:22 09/29/19 06:22 Microbiology and Other Data: Microbiology 09/27/19 04:18 Nasal Screen MRSA (PCR) - Final Nasal Mrsa Not Detected Diagnostic Imaging: Hip XRAY 09/26 IMPRESSION: 1. DISPLACED LEFT SUBCAPITAL FEMORAL NECK FRACTURE. 2. OSTEOPENIA. 3. DEGENERATIVE DISEASE ABOVE. Assess/Plan/Problems-Billing Assessment: 79F PMH moderate dementia domiciled at who presented s/p mechanical fall and L hip fracture. POD1 L hemiarthroplasty on 09/28/2019 - Patient Problems (1) Dementia Comment: -Currently w/o behavioral disturbance -Oriented to self at baseline (2) Hip fracture, left Comment: -Post L hemiarthroplasty 09/27/19 -Pain control per surgery -PT OT consult in place (3) Sinus tachycardia Comment: -Mild and asymptomatic -Continue to monitor, likely pain related (4) Fever Comment: post op day 2, likely related to atelectasis (noted small possible LL infilrate and effusion) Will cont incentive spirometry, awaiting bloood cx If fever persisits -may need antibiotics, for now-cont to monitor (5) Anemia Comment: Acute, post op No evidence for acute bleed. Hb down as expected post op (6) DVT prophylaxis Comment: -SQH Status and Disposition: PT OT: Consult in place Diet: Unrestricted Dispo: Back to where she resided before when medically ready
[2019-09-29] MEDS: Heparin VIAL(*) 5000 UNITS/ML VIAL (FIVE THOUSAND) SUBCUT SCH ×2 (09:48→20:53)
[2019-09-29] MEDS: Docusate CAP* 100 MG PO SCH (10:31)
[2019-09-29] MEDS: Docusate LIQ* 100 MG/10 ML UDC PO SCH (10:39)
--- NOTE | 2019-09-29 10:51 | PN ---
Progress Note - Progress Note Date of Service: 09/29/19 SOAP: Subjective: POD #2 Left hip hemiarthroplasty. Doing well, c/o pain only with movement. Denies CP/SOB, f/c, n/v. Objective: Vital Signs: Temp Pulse Resp BP Pulse Ox 99.9 F 94 22 142/62 97 09/29/19 08:49 09/29/19 08:28 09/29/19 08:28 09/29/19 08:28 09/29/19 08:28 Gen: A&Ox2, not oriented to date. NAD at rest sitting in chair Left hip: Incision C/D/I with josue. No erythema, no ecchymosis. Thigh soft, NT. +f/e at ankle and MTPs. N/V intact Labs: Laboratory Results - last 24 hr 09/29/19 09/29/19 09/29/19 04:31 04:31 06:22 WBC 9.2 8.8 RBC 3.40 L 3.35 L Hgb 9.7 L 9.5 L Hct 28 L 28 L MCV 84 83 MCH 29 28 MCHC 34 34 RDW 15 15 Plt Count 141 L 133 L MPV 9.2 8.6 Neut % (Auto) 79.0 78.5 Lymph % (Auto) 6.9 7.5 Florence % (Auto) 13.9 13.2 Eos % (Auto) 0.0 0.1 Baso % (Auto) 0.2 0.7 Absolute Neuts (auto) 7.2 6.9 Absolute Lymphs (auto) 0.6 L 0.7 L Absolute Monos (auto) 1.3 H 1.2 H Absolute Eos (auto) 0.0 0.0 Absolute Basos (auto) 0.0 0.1 Absolute Nucleated RBC 0.0 0.0 Nucleated RBC % 0.0 0.0 Sodium 137 Potassium 3.5 Chloride 107 Carbon Dioxide 23 Anion Gap 7 BUN 15 Creatinine 0.56 Est GFR ( Amer) 125.7 Est GFR (Non-Af Amer) 103.9 BUN/Creatinine Ratio 26.8 H Glucose 123 H Lactic Acid Calcium 7.7 L 09/29/19 09/29/19 06:22 06:22 WBC RBC Hgb Hct MCV MCH MCHC RDW Plt Count MPV Neut % (Auto) Lymph % (Auto) Florence % (Auto) Eos % (Auto) Baso % (Auto) Absolute Neuts (auto) Absolute Lymphs (auto) Absolute Monos (auto) Absolute Eos (auto) Absolute Basos (auto) Absolute Nucleated RBC Nucleated RBC % Sodium 136 Potassium 3.5 Chloride 107 Carbon Dioxide 24 Anion Gap 5 BUN 16 Creatinine 0.57 Est GFR ( Amer) 123.2 Est GFR (Non-Af Amer) 101.8 BUN/Creatinine Ratio 28.1 H Glucose 126 H Lactic Acid 0.6 Calcium 7.7 L Assessment: POD #2 Left hip hemiarthroplasty Plan: Cont PT/OT, posterior hip precautions OK for d/c to [facility] when medically stable Lovenox 30 mg subq daily for 30 days F/u with Dr. Reynolds in 1 month Staple removal at 14 days post po
[2019-09-29] MEDS ORDERED: Magnesium Hydroxide LIQ* 30 ML UDC PO PRN (15:14)
[2019-09-29 15:38] LABS: Influenza A Molecular Negative (Negative); Influenza B Molecular Negative (Negative)
[2019-09-29] MEDS: HYDROcodone/ACETAMIN 5-325 MG* 1 TAB PO PRN (21:11)
[2019-09-29 21:17] LABS: Urine Appearance Turbid; Urine Bilirubin Negative (Negative); Urine Blood 2+ (Negative); Urine Color Yellow; Urine Glucose Negative (Negative); Urine Ketones Trace (Negative); Urine Nitrite Negative (Negative); Urine Protein Negative (Negative); Urine Specific Gravity 1.013 (1.010-1.030); Urine Urobilinogen Positive (Negative)
[2019-09-29 21:21] LABS: Urine Bacteria 2+ (Absent); Urine Red Blood Cell 3+(>10/hpf) (Absent); Urine White Blood Cell 2+(11-20/hpf) (Absent)
[2019-09-30 06:05] LABS: ABS Lymphocytes 0.6 10^3/ul (1.0-4.8); ABS Monocytes 0.9 10^3/ul (0-0.8); ABS Neutrophils 7.3 10^3/ul (1.5-7.7); Eosinophil % 0.4 %; Hematocrit 27 % (35-47); Hemoglobin 9.2 g/dL (12.0-16.0); Lymphocyte % 6.6 %; Mean Corpuscular HGB Conc 35 g/dL (31-36); Mean Corpuscular Hemoglobin 29 pg (27-31); Mean Corpuscular Volume 83 fL (80-97); Mean Platelet Volume 9.2 fL (7.4-10.4); Platelet Count 139 10^3/uL (150-450); Red Cell Distribution Width 15 % (10-15); White Blood Count 8.9 10^3/uL (3.5-10.8)
[2019-09-30 06:21] LABS: Calcium 7.7 mg/dL (8.6-10.3); EGFR African American 157.8 (>60); EGFR Non-African American 130.4 (>60); Potassium 3.5 mmol/L (3.5-5.0)
[2019-09-30] MEDS: Heparin VIAL(*) 5000 UNITS/ML VIAL (FIVE THOUSAND) SUBCUT SCH (08:34)
[2019-09-30] MEDS: Docusate LIQ* 100 MG/10 ML UDC PO SCH (08:39)
[2019-09-30] MEDS: HYDROcodone/ACETAMIN 5-325 MG* 1 TAB PO PRN (11:00)
[2019-09-30 11:27] VITALS: BP 142/71
[2019-09-30] MEDS ORDERED: Cefdinir cap* 300 MG CAP PO ONE (11:56)
--- NOTE | 2019-09-30 12:21 | DS ---
CC: Physician from [facility]; Dr. Reynolds * DISCHARGE SUMMARY: DATE OF ADMISSION: 09/27/19 DATE OF DISCHARGE: 09/30/19 PRIMARY CARE PROVIDER: Physician from [facility]. ORTHOPEDIC SURGERY: Dr. Reynolds. DISPOSITION AT DISCHARGE: To [facility]. CONDITION ON DISCHARGE: Stable. DISCHARGE DIAGNOSES: 1. Status post fall and subsequent left hip fracture with subsequent left hip hemiarthroplasty performed by Dr. Reynolds on 09/27/19. 2. Postoperative fever, likely due to atelectasis that resolved. 3. Likely urinary tract infection. SECONDARY DIAGNOSES: 1. Significant dementia. 2. Eczema. 3. Arthritis. MEDICATIONS AT DISCHARGE: Include: 1. Cefdinir 300 mg p.o. b.i.d. for a total of 3 days and then stop. 2. Lovenox 30 units subcutaneously daily for a total of 28 days, then stop. 3. Senna 2 tablets at bedtime p.r.n. constipation. Remaining medications are unchanged and include: 1. Ketoconazole shampoo, apply while washing patient's hair. 2. EpiPen on a p.r.n. basis. 3. Benadryl 30 mL on a p.r.n. basis and prescribed in the past. 4. Tums 2 tablets every 6 hours p.r.n. 5. Acetaminophen 650 mg every 6 hours p.r.n. pain or fever. CONSULTATIONS DURING THE HOSPITAL STAY: Include Dr. Reynolds from Orthopedic Surgery. PROCEDURES PERFORMED: On 09/27/19, the patient underwent left-sided hip hemiarthroplasty performed by Dr. Reynolds. DIAGNOSTIC STUDIES/LAB DATA: Laboratory data done during the hospital stay included: On 09/30/19, white blood cell count 8.9, hemoglobin of 9.2, hematocrit 27, and platelets of 159. Sodium 137, potassium 3.5, chloride 107, carbon dioxide 24, BUN 17, creatinine 0.46. Last urinalysis obtained on was positive for trace ketones, trace blood, +2 esterase, +2 wbc's, +2 bacteria, negative for nitrites. Blood cultures obtained on 09/29/19 were negative. Portable chest x-ray obtained on 09/29/19, impression: "New left lateral costophrenic angle airspace opacification with possible small left-sided pleural effusion." HOSPITALIZATION COURSE: Jennifer Pompa is an 79-year-old female with history of dementia, who fell at [facility] where she is a resident at. She presented to the hospital with left hip fracture. On 09/27/19, Dr. Reynolds performed left hemiarthroplasty of the hip. Postoperatively on postoperative day 2, she developed a fever of 101.4, otherwise asymptomatic. Her chest x-ray shows possibility of infiltrate at the left lower lobe. It was presumed that it was due to an atelectasis and the patient was treated with incentive spirometry and her fever did not recur for the next 24 hours. Nevertheless, her urinalysis was significantly abnormal. Her urine cultures are pending at the time of dictation, but she is going to be treated empirically with cefdinir. Please note that the patient has no symptoms of dysuria, but due to her dementia, she has significant impairment in being able to specify her symptoms. She is going to be discharged today to [facility] for further rehabilitation. FOLLOWUP: In regards to followups, she is supposed to follow up with her primary care provider at [facility] in approximately 3 to [address] Reynolds in approximately 7 to 10 days. In regards to wound care, the patient is to keep her left hip wound incision clean and dry for the next couple of days. After the couple of days, she can shower. The dressings should be changed daily or if soiled. During Dr. Reynolds' s followup in 7 to 10 days, that will be reassessed. PHYSICAL EXAM AT TIME OF DISCHARGE: Blood pressure of 148/65, heart rate of 103 and regular, respiratory rate 20, oxygen saturation 95% on room air, temperature 98.9. General: The patient is a pleasant 79-year-old female who is in no acute distress. She is oriented to self only. HEENT: Head atraumatic , normocephalic. Eyes: Pupils are equal, reactive to light and accommodation. Oropharynx is clear. Mucosa moist. Neck: Supple. No JVD. No bruits bilaterally. Cardiovascular: Regular rate and rhythm. No murmurs. Respiratory : Clear to auscultation bilaterally. Abdomen: Soft, nontender. Bowel sounds are present in all 4 quadrants. Extremities: There is no edema. Pulses are + 2 bilaterally. No clubbing or cyanosis. On evaluation of the skin, the patient' s left hip incision is covered with postsurgical dressings and those were not uncovered. The surrounding skin had no hematoma or cellulitis noted. Please note this is a short summary of the patient's hospitalization. Please refer to further medical records for details. TIME SPENT: Approximately 45 minutes was spent in preparation of the patient's discharge. [id number]/CPS #: [id number] TULIO
== END 2019-09-30 12:51 | DRG 470 ==
LOC: ED 04:03 → SSU 06:01
PROVIDERS: ADMIT Nurse Practitioner Family; ATTEND Internal Medicine
PROC: 0SRS0JA Replacement of Left Hip Joint, Femoral Surface with Synthetic Substitute, Uncemented, Open Approach (ICD-10-PCS; principal; 2019-09-27 09:00)
DX: S72.012A Unspecified intracapsular fracture of left femur, initial encounter for closed fracture (principal); R64 Cachexia; D62 Acute posthemorrhagic anemia; J98.11 Atelectasis; N39.0 Urinary tract infection, site not specified; W19.XXXA Unspecified fall, initial encounter; Z66 Do not resuscitate; F03.90 Unspecified dementia, unspecified severity, without behavioral disturbance, psychotic disturbance, mood disturbance, and anxiety; M19.90 Unspecified osteoarthritis, unspecified site; E86.0 Dehydration; R62.7 Adult failure to thrive; S00.81XA Abrasion of other part of head, initial encounter; L30.9 Dermatitis, unspecified; K21.9 Gastro-esophageal reflux disease without esophagitis; R00.0 Tachycardia, unspecified; Y92.129 Unspecified place in nursing home as the place of occurrence of the external cause; Z91.012 Allergy to eggs; Z91.018 Allergy to other foods; Z91.013 Allergy to seafood; Z88.8 Allergy status to other drugs, medicaments and biological substances; Z87.891 Personal history of nicotine dependence; Z68.21 Body mass index [BMI] 21.0-21.9, adult
CPT/HCPCS: 36415; 70450; 71045; 72125; 72170; 80048; 80053; 81003; 81015; 82550; 83605; 84484; 85025; 85610; 85730; 86850; 86900; 86901; 87040; 87077; 87086; 87186; 87641; 88305; 88311; 93005; 96360; 99284; A9270-GY; C1776; J0330; J0690; J1644; J2270; J2405; J2704; J3010; J3490